=== PATIENT | female | born 1990 | race Caucasian/White ===

== ENCOUNTER 2018-04-09 08:40 | Emergency (ER) | payer MEDICAID, SELFPAY ==
[2018-04-09 08:41] VITALS: BP 170/102; BP 180/110; PULSE 86; PULSE 92; RESP 20; TEMP 36.4; O2SAT 98; BMI 54.9
--- NOTE | 2018-04-09 09:12 | CT_ITS ---
STUDY: CT CHEST WITHOUT CONTRAST REASON FOR EXAM: Female, 27 years old. Right-sided chest pain. No known injury. RADIATION DOSAGE (If Supplied By Facility): CTDIvol = ( 20.15 ) mGy, DLP = ( 629.31 ) mGycm TECHNIQUE: Transaxial imaging was performed without the administration of intravenous contrast material. Multiplanar coronal and sagittal images were reformatted. Individualized dose optimization techniques were used for this CT. COMPARISON: None. FINDINGS: Minimal increased markings seen on the anterior aspect of the right and left lower lobes suggestive of atelectasis and/or scarring. Focal area for groundglass appearance in the anterior aspect of the left upper lobe as well as in the lateral aspect of the right upper lobe and superior segment of the left lower. Calcified granuloma in the right lower lobe. Noncalcified well-defined nodule measuring 6.8 mm is seen in the lateral aspect of the left lower lobe as seen on axial image #67. There is no demonstrated pleural abnormality. Normal heart and pericardium. There are multiple small lymph nodes within the mediastinum, which are normal in size and morphology most compatible with reactive lymph hyperplasia. Normal hilar regions. Normal unenhanced pulmonary arteries. Normal aorta arch and descending thoracic aorta. There are mild degenerative changes of the thoracic spine. There is no demonstrated abnormality of the visualized upper abdomen. CT/Chest without Contrast IMPRESSION: Noncalcified nodule in the left lower lobe. A six-month follow-up is recommended. Nonspecific findings with focal areas of scarring and possible mild infiltrates as described. Electronically Signed: Lewis Sheffield MD at 10:00 EST Tel [phone], Service support ,
[2018-04-09] MEDS: Ketorolac 60 MG/2 ML Vial IM (09:22)
--- NOTE | 2018-04-09 10:12 | ED.VISSUMM ---
- ER Visit Summary Date of Service: 04/09/18 Chief Complaint: Right chest pain History of Present Illness: The patient is a 27 F who states that for the past several weeks she has had a cough. That has improved but on Friday she developed pain underneath her right breast wrapping around to the mid axillary region and into the back. Is worse with movement is worse with touch it is worse with her residual cough. She has a history of asthma and smokes. Travel or surgeries. No prior DVT or PE in the past. She went to [facility] today and they did rib and chest x-rays and was told that they were negative. She was prescribed naproxen. She is upset by this because she is tell them that she was taking naproxen and other [id number]-[id number] medicines and it was not helping. Therefore she came to the emergency department. She has not seen her family doctor made an appointment with them. Physical Examination: Afebrile vital signs are stable Gen: Well-nourished well-developed Head: Normocephalic atraumatic Eyes: Perrl EOMI ENT: TMs clear no rhinorrhea moist mucous membranes Neck: Supple no lymphadenopathy no JVD nontender CVS: Regular rate rhythm no murmurs normal S1-S2 Respiratory: No distress clear to auscultation bilaterally tender to palpation along the lower anterior rib just 2 fingerbreadths below the breast. This rib continues to be tender wrapping posteriorly. There is no rash. Abdomen: Soft nontender nondistended normal bowel sounds no masses Back: Nontender Extremity: Nontender no edema Skin: Normal color no rash Neuro: alert orientated ?3 CN II-XII intact normal strength sensation reflexes gait cerebellar Psych: Normal affect normal mood Test Results: CT chest negative for fracture. Negative for effusion Emergency Department Course and Treatment: Patient received a dose of Toradol. She is PERC negative. Patient will be prescribed Toradol. She is to follow-up with primary care. I advised her on holding a pillow against her chest when she goes to move or cough for support. She was advised that she should expect discomfort. Impression: 1. Right chest wall pain This note was generated with [employer] dictation software. It may contain incorrect words, spelling, and punctuation that were not noted in review of the chart prior to signing ED Disposition - Plan for ED Patient: Disposition: Home or Assisted Living Chief Complaint: Other, Pain/Inj Instructions: ED Strain Chest Wall, ED Chest Pain Costochondritis Prescriptions: Ketorolac [Toradol] 10 mg PO Q8H PRN #15 tab PRN Reason: Pain Referrals: Chantal Ayers PA [Primary Care Provider] - 1 Week
--- NOTE | 2018-04-09 10:17 | ED.DCSUM_ITS ---
- ER Visit Summary Date of Service: 04/09/18 Chief Complaint: Right chest pain History of Present Illness: The patient is a 27 F who states that for the past several weeks she has had a cough. That has improved but on Friday she developed pain underneath her right breast wrapping around to the mid axillary region and into the back. Is worse with movement is worse with touch it is worse with her residual cough. She has a history of asthma and smokes. Travel or surgeries. No prior DVT or PE in the past. She went to [facility] today and they did rib and chest x-rays and was told that they were negative. She was prescribed naproxen. She is upset by this because she is tell them that she was taking naproxen and other phmt-lrh-knawnhe medicines and it was not helping. Therefore she came to the emergency department. She has not seen her family doctor made an appointment with them. Physical Examination: Afebrile vital signs are stable Gen: Well-nourished well-developed Head: Normocephalic atraumatic Eyes: Perrl EOMI ENT: TMs clear no rhinorrhea moist mucous membranes Neck: Supple no lymphadenopathy no JVD nontender CVS: Regular rate rhythm no murmurs normal S1-S2 Respiratory: No distress clear to auscultation bilaterally tender to palpation along the lower anterior rib just 2 fingerbreadths below the breast. This rib continues to be tender wrapping posteriorly. There is no rash. Abdomen: Soft nontender nondistended normal bowel sounds no masses Back: Nontender Extremity: Nontender no edema Skin: Normal color no rash Neuro: alert orientated ?3 CN II-XII intact normal strength sensation reflexes gait cerebellar Psych: Normal affect normal mood Test Results: CT chest negative for fracture. Negative for effusion Emergency Department Course and Treatment: Patient received a dose of Toradol. She is PERC negative. Patient will be prescribed Toradol. She is to follow-up with primary care. I advised her on holding a pillow against her chest when she goes to move or cough for support. She was advised that she should expect discomfort. Impression: 1. Right chest wall pain This note was generated with [employer] dictation software. It may contain incorrect words, spelling, and punctuation that were not noted in review of the chart prior to signing ED Disposition - Plan for ED Patient: Disposition: Home or Assisted Living Chief Complaint: Other, Pain/Inj Instructions: ED Strain Chest Wall, ED Chest Pain Costochondritis Prescriptions: Ketorolac [Toradol] 10 mg PO Q8H PRN #15 tab PRN Reason: Pain Referrals: Chantal Ayers PA [Primary Care Provider] - 1 Week
[2018-04-09 10:25] VITALS: BP 138/74; PULSE 61; RESP 15; O2SAT 98
--- OUTSIDE RECORDS SUMMARY | 2018-06-04 09:17 | XMS RPT_ITS ---
:1990 Author Organization OH[facility] Care Team Providers Name Role Phone FADI VERMA Referring Unavailable Broderick Robert Attending Unavailable Chantal Ayers Primary Care Unavailable PROBLEMS PROBLEMS DATE TYPE CONDITION / CODE ATTENDING STATUS SOURCE 04/09/2018 Active Pleurodynia / NA Active [facility] R07.81(ICD-10) Main [place] Repository PROCEDURES PROCEDURES No Procedure Records FoundRESULTS RESULTS EMERGENCY DEPARTMENT Observed: 04/09/2018 Status: F Source: [place] SUMMARY 5:46 PM [facility] REPOSITORY [facility] Medical Records Department [address] [place] [address] Emergency Department Summary 04/09/18 1012 MR#: [id number] Acct: [id number] Name: TANA QUEEN Rep #: [id number] : 1990 27 From: Broderick Robert DO PCP: Chantal Ayers Status: DEP ER - ER Visit Summary Date of Service: 04/09/18 Chief Complaint: Right chest pain History of Present Illness: The patient is a 27 F who states that for the past several weeks she has had a cough. That has improved but on Friday she developed pain underneath her right breast wrapping around to the mid axillary region and into the back. Is worse with movement is worse with touch it is worse with her residual cough. She has a history of asthma and smokes. Travel or surgeries. No prior DVT or PE in the past. She went to express care today and they did rib and chest x-rays and was told that they were negative. She was prescribed naproxen. She is upset by this because she is tell them that she was taking naproxen and other rrwf-fkj-eoinwhb medicines and it was not helping. Therefore she came to the emergency department. She has not seen her family doctor made an appointment with them. Physical Examination: Afebrile vital signs are stable Gen: Well-nourished well-developed Head: Normocephalic atraumatic Eyes: Perrl EOMI ENT: TMs clear no rhinorrhea moist mucous membranes Neck: Supple no lymphadenopathy no JVD nontender CVS: Regular rate rhythm no murmurs normal S1-S2 Respiratory: No distress clear to auscultation bilaterally tender to palpation along the lower anterior rib just 2 fingerbreadths below the breast. This rib continues to be tender wrapping posteriorly. There is no rash. Abdomen: Soft nontender nondistended normal bowel sounds no masses Back: Nontender Extremity: Nontender no edema Skin: Normal color no rash Neuro: alert orientated 3 CN II-XII intact normal strength sensation reflexes gait cerebellar Psych: Normal affect normal mood Test Results: CT chest negative for fracture. Negative for effusion Emergency Department Course and Treatment: Patient received a dose of Toradol. She is PERC negative. Patient will be prescribed Toradol. She is to follow-up with primary care. I advised her on holding a pillow against her chest when she goes to move or cough for support. She was advised that she should expect discomfort. Impression: 1. Right chest wall pain This note was generated with [employer] dictation software. It may contain incorrect words, spelling, and punctuation that were not noted in review of the chart prior to signing ED Disposition - Plan for ED Patient: Disposition: Home or Assisted Living Chief Complaint: Other, Pain/Inj Instructions: ED Strain Chest Wall, ED Chest Pain Costochondritis Prescriptions: Ketorolac [Toradol] 10 mg PO Q8H PRN #15 tab PRN Reason: Pain Referrals: Chantal Ayers PA [Primary Care Provider] - 1 Week What to do if you have Problems For any increased pain, shortness of breath, bleeding, nausea or vomiting, chest pain, or any unexpected problems, contact your Primary Care Provider. Call [facility] ([phone]) or report to the closest Emergency Room. Call 911 if necessary. 04/09/18 [id number] <Electronically signed by Broderick Robert DO> Date Broderick Robert DO Cosigner Signature (If Indicated): Date CC: Chantal Ayers CHEST WITHOUT Observed: 04/09/2018 Status: F Source: [place] CONTRAST 9:12 AM [facility] REPOSITORY [facility] Imaging Services [address] [place] [address] Chest without Contrast MR#: [id number] Acct: [id number] Name: TANA QUEEN Rep #: [id number] : 1990 F 27 From: Lewis Sheffield MD PCP: Chantal Ayers Status: REG ER Study: Chest without Contrast Date of Exam: 04/09/18 Exam# [id number] Ordering Dr: Broderick Robert DO STUDY: CT CHEST WITHOUT CONTRAST REASON FOR EXAM: Female, 27 years old. Right-sided chest pain. No known injury. RADIATION DOSAGE (If Supplied By Facility): CTDIvol = ( 20.15 ) mGy, DLP = ( 629.31 ) mGycm TECHNIQUE: Transaxial imaging was performed without the administration of intravenous contrast material. Multiplanar coronal and sagittal images were reformatted. Individualized dose optimization techniques were used for this CT. COMPARISON: None. FINDINGS: Minimal increased markings seen on the anterior aspect of the right and left lower lobes suggestive of atelectasis and/or scarring. Focal area for groundglass appearance in the anterior aspect of the left upper lobe as well as in the lateral aspect of the right upper lobe and superior segment of the left lower. Calcified granuloma in the right lower lobe. Noncalcified well-defined nodule measuring 6.8 mm is seen in the lateral aspect of the left lower lobe as seen on axial image #67. There is no demonstrated pleural abnormality. Normal heart and pericardium. There are multiple small lymph nodes within the mediastinum, which are normal in size and morphology most compatible with reactive lymph hyperplasia. Normal hilar regions. Normal unenhanced pulmonary arteries. Normal aorta arch and descending thoracic aorta. There are mild degenerative changes of the thoracic spine. There is no demonstrated abnormality of the visualized upper abdomen. CT/Chest without Contrast IMPRESSION: Noncalcified nodule in the left lower lobe. A six-month follow- up is recommended. Nonspecific findings with focal areas of scarring and possible mild infiltrates as described. Electronically Signed: Lewis Sheffield MD at 10:00 EST Tel [phone], Service support , CC: Chantal Ayers; Broderick Robert DO Talent Management Specialist: Signed XR RIB/CHST 3V AP Observed: 04/09/2018 Status: F Source: [place] RIB/OBL/CHST 8:14 AM [facility] REPOSITORY * * *Final Report* * * DATE OF EXAM: Apr 09 2018 8:14AM WOX [id number] - XR RIB/CHST 3V AP RIB/OBL/CHST R / PROCEDURE REASON: Rib pain on right side * * * * Physician Interpretation * * * * HISTORY: 27-YEAR-OLD FEMALE WITH Rib pain on right side . Cough x 3 weeks. Right sided anterior lower rib pain that wraps around laterally from forceful coughing. TECHNIQUE: XR RIB/CHST 3V AP RIB/OBL/CHST R Laterality: RIGHT Number of different views (projections): 3 COMPARISON: None RESULT: Heart size mediastinum are within normal limits. Lungs are free focal infiltrates or consolidations. No pneumothorax. No pleural effusion. No displaced right rib fracture. IMPRESSION: NO ACUTE BONY ABNORMALITY. Talent Management Specialist: MARY ANN Transcribe Date/Time: Apr 09 2018 12:36P Dictated by : ABHISHEK BUSTAMANTE MD This examination was interpreted and the report reviewed and electronically signed by: ABHISHEK BUSTAMANTE MD on Apr 09 2018 12:38PM EST [id number] PROGRESS Observed: 04/09/2018 Status: COMPLETED Source: [place] 8:04 AM [facility] REPOSITORY HNO ID: [id number] Author: Yuimko Hahn (Rt) Xochilt Garner Service: (none) Author Type: Hunting Guide Type: Progress Notes Filed: 04/09/2018 8:14 AM Note Text: Radiology Service Progress Note PATIENT NAME: Tana Queen DATE OF SERVICE: April 09, 2018 TIME: 8:04 AM PATIENT IDENTITY VERIFICATION COMPLETED USING TWO (2) METHODS: Patient confirmed name verbally and Date of . PATIENT GENDER DATA: Female. status: : No status: NO. PATIENT RELEVANT IMPLANT DATA REVIEWED: Not Applicable RADIOLOGY DEPARTMENT: General X-ray: Exam(s) Completed: Rib X-Ray: Right PERIPHERAL IV DATA: Not applicable SIGNED BY: RT Veronica April 09, 2018 8:04 AM PROGRESS Observed: 04/09/2018 Status: COMPLETED Source: [place] 7:25 AM [facility] REPOSITORY HNO ID: [id number] Author: Fadi Verma Service: (none) Author Type: Physician Type: Progress Notes Filed: 04/09/2018 8:36 AM Note Text: Patient presents with: Cough: x3 weeks Pain: rib Right Side x 5 days HPI: Feeling sick for 3 weeks with URI. 5 days of right rib pain below the right breast and side. Some radiation to the back. Pain is worse than her gallbladder. Pain with inspiration, touching, or cough. Holding a pillow on the chest helps her breath with less discomfort. Positive symptoms: cough, right chest pain, Shortness of breath, Chest tightness, Nasal Congestion, Rhinorrhea, Negative symptoms: Sore throat, Earache, Fever, OTC: Ibuprofen or naproxen, inhaler LMP in January. She had a little pink spotting this month. PAST MEDICAL HISTORY Diagnosis Date - Asthma - Heartburn - Obesity - Tobacco abuse PAST SURGICAL HISTORY Procedure Laterality Date - LAP CHOLECYSTECT/CHOLANGIOGRAPHY 08-17-14 MEDICATIONS: Current Outpatient Prescriptions: albuterol HFA (VENTOLIN HFA) 90 mcg/actuation inhaler Inhale 2 Puffs as instructed every 4 hours as needed. Omeprazole 40 mg capsule Take 1 capsule by mouth once daily. cetirizine (ZYRTEC) 10 mg tablet Take 1 tablet by mouth once daily. guaiFENesin (MUCINEX) 600 mg 12 hr tablet Take 2 tablets by mouth twice daily. (Patient not taking: Reported on 01/22/2017) Loperamide-Simethicone 2-125 mg tab As needed for diarrhea per OTC dosing (Patient not taking: Reported on 01/22/2017) No current facility-administered medications for this visit. ALLERGIES: ALLERGIES Allergen Reactions - Doxycycline Vomiting VITALS: BP 130/80 Pulse 92 Temp 36.4 ?C (97.6 ?F) (Left Tympanic) Resp 20 Wt (!) 148.2 kg (326 lb 12.8 oz) LMP 01/12/2018 SpO2 97% BMI 54.38 kg/m? PHYSICAL EXAM: GEN: alert, pleasant, mildly ill appearing HEENT: PERRL, EOMI, conjunctiva clear Ears: TMs without erythema, bulge, or effusion Sinuses: non-tender frontal sinus, non-tender maxillary sinuses Throat: moist mucous membranes, mild erythema, no exudate Neck: supple, no thyromegaly, no lymphadenopathy HEART: regular rate and rhythm, no murmurs LUNGS: clear to auscultation, no wheezes or crackles, pain with inspiration but no increased WOB. CHEST: Tender right ~10th rib below the breast and in the axillary line with light palpation, discomfort in the same rib in the back. SKIN: No vesicles or patches of erythema on the tender chest area. Hint of ecchymosis may be present. ASSESSMENT/PLAN: 1. Rib pain on right side - ICD9: 786.50, ICD10: R07.81 (primary diagnosis) 2. Cough - ICD9: 786.2, ICD10: R05 3. Mild persistent asthma with acute exacerbation - ICD9: 493.92, ICD10: J45.31 - XR RIBS/CHEST 3V AP RIB/OBLS/CXR RT - negative Suspect rib strain. - NAPROXEN 500 MG TABLET, hold while taking the first 2 days of prednisone. She may use acetaminophen. - BENZONATATE 100 MG CAPSULE - PREDNISONE 10 MG TABLET taper Regular deep inspiration encouraged to avoid pneumonia. F/u in the ER with worsening pain, shortness of breath, or fever. She reports inadequate pain relief with ibuprofen or naproxen. She gets sick from vicodin but has tolerated percocet. She plans to f/u with her PCP or the ER for stronger pain medication. 4. Missed menses - ICD9: 626.4, ICD10: N92.6 - HCG QUAL UR B/O negative Fadi J Verma, MD CNOV Observed: 04/09/2018 Status: COMPLETED Source: [place] 7:15 AM [facility] REPOSITORY [facility] TANA QUEEN ([id number]) 1990 F Date Time Provider Department 04/09/18 7:15 AM FADI VERMA [facility] During your visit today, we recorded the following information about you: Temperature Pulse Respiration Blood pressure 97.6 degrees 92/minute 20/minute 130/80 Weight Last Period 148.2 kg 01/12/18 Fadi Verma MD 04/09/2018 8:36 AM Signed Patient presents with: Cough: x3 weeks Pain: rib Right Side x 5 days HPI: Feeling sick for 3 weeks with URI. 5 days of right rib pain below the right breast and side. Some radiation to the back. Pain is worse than her gallbladder. Pain with inspiration, touching, or cough. Holding a pillow on the chest helps her breath with less discomfort. Positive symptoms: cough, right chest pain, Shortness of breath, Chest tightness, Nasal Congestion, Rhinorrhea, Negative symptoms: Sore throat, Earache, Fever, OTC: Ibuprofen or naproxen, inhaler LMP in January. She had a little pink spotting this month. PAST MEDICAL HISTORY Diagnosis Date - Asthma - Heartburn - Obesity - Tobacco abuse PAST SURGICAL HISTORY Procedure Laterality Date - LAP CHOLECYSTECT/CHOLANGIOGRAPHY 08-17-14 MEDICATIONS: Current Outpatient Prescriptions: albuterol HFA (VENTOLIN HFA) 90 mcg/actuation inhaler Inhale 2 Puffs as instructed every 4 hours as needed. Omeprazole 40 mg capsule Take 1 capsule by mouth once daily. cetirizine (ZYRTEC) 10 mg tablet Take 1 tablet by mouth once daily. guaiFENesin (MUCINEX) 600 mg 12 hr tablet Take 2 tablets by mouth twice daily. (Patient not taking: Reported on 01/22/2017) Loperamide-Simethicone 2-125 mg tab As needed for diarrhea per OTC dosing (Patient not taking: Reported on 01/22/2017) No current facility-administered medications for this visit. ALLERGIES: ALLERGIES Allergen Reactions - Doxycycline Vomiting VITALS: BP 130/80 Pulse 92 Temp 36.4 ?C (97.6 ?F) (Left Tympanic) Resp 20 Wt (!) 148.2 kg (326 lb 12.8 oz) LMP 01/12/2018 SpO2 97% BMI 54.38 kg/m? PHYSICAL EXAM: GEN: alert, pleasant, mildly ill appearing HEENT: PERRL, EOMI, conjunctiva clear Ears: TMs without erythema, bulge, or effusion Sinuses: non-tender frontal sinus, non-tender maxillary sinuses Throat: moist mucous membranes, mild erythema, no exudate Neck: supple, no thyromegaly, no lymphadenopathy HEART: regular rate and rhythm, no murmurs LUNGS: clear to auscultation, no wheezes or crackles, pain with inspiration but no increased WOB. CHEST: Tender right ~10th rib below the breast and in the axillary line with light palpation, discomfort in the same rib in the back. SKIN: No vesicles or patches of erythema on the tender chest area. Hint of ecchymosis may be present. ASSESSMENT/PLAN: 1. Rib pain on right side - ICD9: 786.50, ICD10: R07.81 (primary diagnosis) 2. Cough - ICD9: 786.2, ICD10: R05 3. Mild persistent asthma with acute exacerbation - ICD9: 493.92, ICD10: J45.31 - XR RIBS/CHEST 3V AP RIB/OBLS/CXR RT - negative Suspect rib strain. - NAPROXEN 500 MG TABLET, hold while taking the first 2 days of prednisone. She may use acetaminophen. - BENZONATATE 100 MG CAPSULE - PREDNISONE 10 MG TABLET taper Regular deep inspiration encouraged to avoid pneumonia. F/u in the ER with worsening pain, shortness of breath, or fever. She reports inadequate pain relief with ibuprofen or naproxen. She gets sick from vicodin but has tolerated percocet. She plans to f/u with her PCP or the ER for stronger pain medication. 4. Missed menses - ICD9: 626.4, ICD10: N92.6 - HCG QUAL UR B/O negative Fadi Verma MD Referring Provider: SELF [200] Allergies As of Date: 04/09/2018 Noted Allergy Reaction DOXYCYCLINE 01/08/2013 11 - Vomiting Date Reviewed: 04/09/2018 Reviewed by: Ruthie Banuelos Ma - Fully Assessed Reason for Visit: Cough [28] Cmt: x3 weeks Pain [78] Cmt: rib Right Side x 5 days Primary Visit Diagnosis:Rib pain on right side [R07.81] Other Visit Diagnoses:Cough [R05] Mild persistent asthma with acute exacerbation [J45.31] Missed menses [N92.6] Order(s):[facility] QUAL UR B/O [[id number]] Order #: [id number] XR RIBS/CHEST 3V AP RIB/OBLS/CXR RT [[id number]] Order #: [id number] FUTURE benzonatate (TESSALON PERLE) 100 mg capsuleTake 1 capsule by mouth every 8 hours as needed for Cough for up to 15 days.Disp: 30 capsuleRfl: 0 naproxen (NAPROSYN) 500 mg tabletTake 1 tablet by mouth twice daily as needed for up to 15 days.Disp: 30 tabletRfl: 0 predniSONE (DELTASONE) 10 mg tabletTake by mouth 5 pills on day 1, 4 pills on day 2, 3 pills on day 3, 2 pills on day 4, 1 pill on day 5.Disp: 15 tabletRfl: 0 Prescriptions as of 04/09/2018 Sig: ALBUTEROL SULFATE HFA 90 MCG/* Inhale 2 Puffs as instructed * OMEPRAZOLE 40 MG CAPSULE,TERRANCE* Take 1 capsule by mouth once * CETIRIZINE 10 MG TABLET Take 1 tablet by mouth once d* BENZONATATE 100 MG CAPSULE Take 1 capsule by mouth every* NAPROXEN 500 MG TABLET Take 1 tablet by mouth twice * PREDNISONE 10 MG TABLET Take by mouth 5 pills on day * GUAIFENESIN ER 600 MG TABLET,* Take 2 tablets by mouth twice* Patient not taking: Reported on 01/22/2017 LOPERAMIDE-SIMETHICONE 2 MG-1* As needed for diarrhea per OT* Patient not taking: Reported on 01/22/2017 Problem List As Of Date 04/09/2018 Noted Resolved Pain in Joint, Shoulder Region [M25.519] INVALID FOR* Asthma, mild persistent [J45.30] INVALID FOR* IBS (irritable bowel syndrome) [K58.9] INVALID FOR* Cholecystitis with cholelithiasis [K80.10] INVALID FOR*08/16/2016 Tobacco abuse [Z72.0] INVALID FOR* Morbid obesity with BMI of 50.0-59.9, adult (HC*INVALID FOR* GERD without esophagitis [K21.9] INVALID FOR* Prescriptions ordered this encounter Disp Refills Start End BENZONATATE 100 MG CAPSULE 30 c* 0 04/09/2018 04/24/2018 Route: ORAL Sig: Take 1 capsule by mouth every 8 hours as needed for Cough for up to 15 days. NAPROXEN 500 MG TABLET 30 t* 0 04/09/2018 04/24/2018 Route: ORAL Sig: Take 1 tablet by mouth twice daily as needed for up to 15 days. PREDNISONE 10 MG TABLET 15 t* 0 04/09/2018 04/14/2018 Sig: Take by mouth 5 pills on day 1, 4 pills on day 2, 3 pills on day 3, 2 pills on day 4, 1 pill on day 5. Encounter Status:Closed by FADI VERMA MD on 04/09/18 ALLERGIES ALLERGIES DATE TYPE / CODE NAME / CODE REACTION SEVERITY SOURCE 04/09/2018 Drug hydrocodone/T79374 Nausea Unknown [place] Allergy/416 1554(RXNORM) [facility] 980456([facility] ED CT) Repository 04/09/2018 Drug acetaminophen/F006 Nausea Unknown [place] Allergy/416 [id number](RXNORM) Formerly [facility] [id number]([facility] ED CT) Repository 10/20/2015 Drug dicyclomine/N18344 Vomiting Unknown [place] Allergy/416 4711(RXNORM) [facility]ly [facility] 197258([facility] ED CT) Repository 01/08/2013 DRUG DOXYCYCLINE Vomiting [facility] INGREDI/419 [facility] 452162([facility] ED CT) ENCOUNTERS ENCOUNTERS ADMIT/DISCHARGE ACCOUNT ADMITTING ENCOUNTER LOCATION SOURCE NUMBER CLASS 04/09/2018/04/09/20 [id number] Emergency [place] [facility] ing:ED Repository 04/09/2018/04/09/20 [id number] Ambulatory [address] Repository 04/09/2018/04/10/20 [id number] Ambulatory [address] Repository PAYERS PAYERS ENCOUNTER GUARANTOR PAYER SUBSCRIBER SOURCE 04/09/2018 TANA Sloan Primary TANA [id number] Insurance:JOHN HICKMAN: Community [facility] [place]: [id number] [id number] Repository 28044Oop: 330) Date:2018-04-09P O [phone] () [address]ATTN: [place] [address]FG: 04/09/2018 Secondary NOT GIVENMAVIS Wetzel Insurance:SELF PAY [facility] Number: Effective Repository Date:2018-04-09
== END 2018-04-09 10:28 | disposition home or self-care (01) ==
PROVIDERS: Emergency Provider Emergency Medicine; Family Provider Physician Assistant; PCP Physician Assistant
DX: R07.89 Other chest pain (principal); R05 Cough; E66.9 Obesity, unspecified; J45.909 Unspecified asthma, uncomplicated; K21.9 Gastro-esophageal reflux disease without esophagitis; Z90.49 Acquired absence of other specified parts of digestive tract; Z72.0 Tobacco use
CPT/HCPCS: 71250; 96372; 99284

== ENCOUNTER 2023-06-01 12:47 | Emergency (ER) | payer MEDICAID, SELFPAY ==
[2023-06-01 12:48] VITALS: BP 163/112; PULSE 107; RESP 22; TEMP 36; O2SAT 95; BMI 55.2
--- OUTSIDE RECORDS SUMMARY | 2023-06-01 13:15 | XMS RPT_ITS | CCD ---
Author Name Unknown Address [address] [place] [address] Organization [facility] Care Team Providers Care Drafter Geological Name Role Phone Chantal Ayers PA-C Primary Care Provider Xochitl Hunt Primary Care Provider [phone] Xochitl AYERS Primary Care Unavailable ROSALINDA RIBEIRO Attending Unavailable Chantal Ayers PA-C Primary Care Provider Chantal Ayers PA-C Primary Care Provider Chantal AYERS Primary Care Unavailable Chantal AYERS Primary Care Unavailable Chantal AYERS Primary Care Unavailable Chantal AYERS Primary Care Unavailable Chantal AYERS Primary Care Unavailable Chantal AYERS Primary Care Unavailable Chantal AYERS Primary Care Unavailable Chantal AYERS Primary Care Unavailable Chantal AYERS Primary Care Unavailable Chantal AYERS Primary Care Unavailable Allergies Allergy Classification Reported Allergen(s) Allergy Type Date of Onset Reaction(s) Facility (17 sources) Doxycycline; Translations: [DOXYCYCLINE] Drug Allergy 01-08-2013 Vomiting [facility] Work Phone: (10 sources) Acetaminophen; Translations: [ACETAMINOPHEN] Drug Allergy 04-09-2018 Other: See Comments [facility] (10 sources) HYDROcodone; Translations: [HYDROCODONE] Drug Allergy 04-09-2018 Other: See Comments [facility] Medications Current Medications Medication Drug Class(es) Dates Sig (Normalized) Sig (Original) acetaminophen 325 mg / HYDROcodone bitartrate 5 mg oral tablet (1 source) Opioid Agonist Start: 01-18-2022 End: 01-22-2022 take 1 tablet by mouth every six hours as needed for pain hydroCODone-acetamino phen 5-325 MG tablet Indications: Ureterolithiasis Take 1 tablet by mouth every 6 hours as needed for Moderate Pain or Severe Pain for up to 4 days. 16 tablet 0 01/18/2022 01/22/2022 Active amoxicillin 875 mg / clavulanate 125 mg oral tablet (6 sources) Penicillin-class Antibacterial Start: 03-31-2023 End: 04-07-2023 take 1 tablet by mouth twice daily amoxicillin-clavulana te potassium (AUGMENTIN) 875-125 mg per tablet Indications: Bacterial sinusitis Take 1 tablet by mouth two times a day for 7 days. 14 tablet 0 03/31/2023 04/07/2023 Active Completed/Discontinued Medications Medication Drug Class(es) Dates Sig (Normalized) Sig (Original) [id number] 200 actuat albuterol 0.09 mg/actuat metered dose inhaler (20 sources) beta2-Adrenergic Agonist Start: 09-26-2022 End: 01-30-2023 take 2 puff(s) by inhalation every four hours as needed albuterol HFA (VENTOLIN HFA) 90 mcg/actuation inhaler Indications: Mild persistent asthma without complication Inhale 2 Puffs as instructed every 4 hours as needed. 18 g 5 01/30/2023 Active Problems Active Problems Problem Classification Problem Date Documented Da te Episodic/Chronic Abdominal pain (2 sources) Epigastric pain; Translations: [Epigastric pain] Episodic Asthma (19 sources) Mild persistent asthma; Translations: [Mild persistent asthma, uncomplicated] Onset: 3 07-10-2012 Chronic Calculus of urinary tract (2 sources) Ureteric stone; Translations: [Calculus of ureter] Episodic Esophageal disorders (15 sources) Gastroesophageal reflux disease without esophagitis; Translations: [Gastro-esophageal reflux disease without esophagitis] Onset: 7 08-16-2016 Chronic Other circulatory disease (1 source) Elevated blood-pressure reading without diagnosis of hypertension; Translations: [Elevated blood-pressure reading, without diagnosis of hypertension] 03-31-2023 Episodic Other ear and sense organ disorders (1 source) Bilateral hearing loss; Translations: [Impacted cerumen, bilateral] Episodic Other ear and sense organ disorders (1 source) Impacted cerumen of bilateral ears; Translations: [Impacted cerumen, bilateral] Episodic Other ear and sense organ disorders (1 source) Acute otitis externa of right ear; Translations: [Unspecified acute noninfective otitis externa, right ear] Episodic Other ear and sense organ disorders (1 source) Impacted cerumen in left ear; Translations: [Impacted cerumen, left ear] Episodic Other ear and sense organ disorders (1 source) Ear problem; Translations: [Unspecified disorder of right ear] Episodic Other ear and sense organ disorders (1 source) Otalgia, left ear; Translations: [Otalgia, unspecified] 01-30-2023 Episodic Other gastrointestinal disorders (15 sources) Irritable bowel syndrome; Translations: [Irritable bowel syndrome without diarrhea] Onset: 5 07-19-2014 Chronic Other gastrointestinal disorders (2 sources) Heartburn; Translations: [Heartburn] Episodic Other nutritional; endocrine; and metabolic disorders (15 sources) Body mass index 40+ - severely obese; Translations: [Morbid (severe) obesity due to excess calories] Onset: 7 08-16-2016 Chronic Other nutritional; endocrine; and metabolic disorders (1 source) Morbid obesity; Translations: [Obesity, unspecified] Chronic Other upper respiratory disease (2 sources) Seasonal allergy; Translations: [Other seasonal allergic rhinitis] Chronic Other upper respiratory disease (1 source) Seasonal allergic rhinitis; Translations: [Other allergic rhinitis] Chronic Other upper respiratory infections (1 source) Bacterial sinusitis; Translations: [Chronic sinusitis, unspecified] 03-31-2023 Chronic Other upper respiratory infections (2 sources) Sore throat symptom; Translations: [Acute pharyngitis, unspecified] 01-02-2023 Episodic Otitis media and related conditions (6 sources) Acute right otitis media; Translations: [Otitis media, unspecified, right ear] Episodic Past or Other Problems Problem Classification Problem Date Documented Da te Episodic/Chronic Other non-traumatic joint disorders (15 sources) Shoulder joint pain; Translations: [Pain in unspecified shoulder] Onset: 03-16-2009 03-16-2009 Episodic Residual codes; unclassified (15 sources) Tobacco user; Translations: [Tobacco use] Onset: 08-10-2014 08-10-2014 Episodic Results Test Name Value Interpretation Reference Range Facil ity Vital Signs Date Time Vital Sign Value Performing Clinician Facility 03-31-2023 13:26-0500 Body temperature 99 [degF] Yas Praisler-Wood ENROBING MACHINE CORDER.[employer]IND [employer]ER Work Phone: [facility] 03-31-2023 13:26-0500 Body weight 163.02 kg Yas Praisler-Wood ENROBING MACHINE CORDER.[employer] Work Phone: [facility] 03-31-2023 13:26-0500 Diastolic blood pressure 103 mm[Hg] Yas Praisler-Wood ENROBING MACHINE CORDER.BLIND H[employer]ER Work Phone: [facility] 03-31-2023 13:26-0500 Heart rate 96 /min Yas Praisler-Wood ENROBING MACHINE CORDER.[employer]ER Work Phone: [facility] 03-31-2023 13:26-0500 Respiratory rate 20 /min Yas Praisler-Wood ENROBING MACHINE CORDER.[employer]ER Work Phone: [facility] 03-31-2023 13:26-0500 SaO2% (BldA) [Mass fraction] 98 % Yas Praisler-Wood ENROBING MACHINE CORDER.[employer]ER Work Phone: [facility] 03-31-2023 13:26-0500 Systolic blood pressure 169 mm[Hg] Yas Praisler-Wood ENROBING MACHINE CORDER.BLIND HANGER Work Phone: [facility] 01-30-2023 11:53-0400 Body temperature 99 [degF] Fadi Verma MD Work Phone: [facility] 01-30-2023 11:53-0400 Body weight 157.58 kg Fadi Verma MD Work Phone: [facility] 01-30-2023 11:53-0400 Diastolic blood pressure 76 mm[Hg] Fadi Verma MD Work Phone: [facility] 01-30-2023 11:53-0400 Heart rate 100 /min Fadi Verma MD Work Phone: [facility] 01-30-2023 11:53-0400 Respiratory rate 20 /min Fadi Verma MD Work Phone: [facility] 01-30-2023 11:53-0400 SaO2% (BldA) [Mass fraction] 96 % Fadi Verma MD Work Phone: [facility] 01-30-2023 11:53-0400 Systolic blood pressure 128 mm[Hg] Fadi Verma MD Work Phone: [facility] 01-20-2023 19:29-0400 Body temperature 100.51 [degF] Tiago Sam ENROBING MACHINE CORDER.[employer]ER Work Phone: [facility] 01-20-2023 19:29-0400 Body weight 155.95 kg Tiago Sam ENROBING MACHINE CORDER.[employer] Work Phone: [facility] 01-20-2023 19:29-0400 Diastolic blood pressure 83 mm[Hg] Tiago Sam ENROBING MACHINE CORDER.[employer]ER Work Phone: [facility] 01-20-2023 19:29-0400 Heart rate 115 /min Tiago Sam ENROBING MACHINE CORDER.[employer] Work Phone: [facility] 01-20-2023 19:29-0400 Respiratory rate 26 /min Tiago Sam ENROBING MACHINE CORDER.[employer]ER Work Phone: [facility] 01-20-2023 19:29-0400 SaO2% (BldA) [Mass fraction] 91 % Tiago Sam ENROBING MACHINE CORDER.[employer]ER Work Phone: [facility] 01-20-2023 19:29-0400 Systolic blood pressure 165 mm[Hg] Tiago Sam ENROBING MACHINE CORDER.[employer]ER Work Phone: [facility] 01-02-2023 11:59-0400 Body temperature 98.8 [degF] Yas Pramadelinler-Wood ENROBING MACHINE CORDER.[employer]ER Work Phone: [facility] 01-02-2023 11:59-0400 Body weight 155.13 kg Yasreema Collazo-Andres ENROBING MACHINE CORDER.[employer]ER Work Phone: [facility] 01-02-2023 11:59-0400 Diastolic blood pressure 86 mm[Hg] Yas Praisler-Wood ENROBING MACHINE CORDER.[employer]ER Work Phone: [facility] 01-02-2023 11:59-0400 Heart rate 91 /min Yas Praisler-Wood ENROBING MACHINE CORDER.[employer]ER Work Phone: [facility] 01-02-2023 11:59-0400 Respiratory rate 20 /min Yas Praisler-Wood ENROBING MACHINE CORDER.[employer]ER Work Phone: [facility] 01-02-2023 11:59-0400 SaO2% (BldA) [Mass fraction] 97 % Yas Praisler-Wood ENROBING MACHINE CORDER.[employer]ER Work Phone: [facility] 01-02-2023 11:59-0400 Systolic blood pressure 132 mm[Hg] Yas Praisler-Wood ENROBING MACHINE CORDER.[employer]ER Work Phone: [facility] 11-13-2022 10:41-0400 Body temperature 97.81 [degF] Dia Latanya ENROBING MACHINE CORDER.[employer]ER Work Phone: [facility] 11-13-2022 10:41-0400 Body weight 152.86 kg Dia Latanya ENROBING MACHINE CORDER.[employer]ER Work Phone: [facility] 11-13-2022 10:41-0400 Diastolic blood pressure 80 mm[Hg] Dia Latanya ENROBING MACHINE CORDER.BL[employer]ER Work Phone: [facility] 11-13-2022 10:41-0400 Heart rate 92 /min Dia Latanya ENROBING MACHINE CORDER.[employer]ER Work Phone: [facility] 11-13-2022 10:41-0400 Respiratory rate 16 /min Dia Latanya ENROBING MACHINE CORDER.[employer]ER Work Phone: [facility] 11-13-2022 10:41-0400 SaO2% (BldA) [Mass fraction] 97 % Dia Latanya ENROBING MACHINE CORDER.[employer]ER Work Phone: [facility] 11-13-2022 10:41-0400 Systolic blood pressure 122 mm[Hg] Dia Latanya ENROBING MACHINE CORDER.BLIND HANGER Work Phone: [facility] 10-16-2022 09:20-0400 Body temperature 97.7 [degF] Krislyn Aberegg PA Work Phone: [facility] 10-16-2022 09:20-0400 Body weight 152.95 kg Krislyn Aberegg PA Work Phone: [facility] 10-16-2022 09:20-0400 Diastolic blood pressure 78 mm[Hg] Krislyn Aberegg PA Work Phone: [facility] 10-16-2022 09:20-0400 Heart rate 83 /min Krislyn Aberegg PA Work Phone: [facility] 10-16-2022 09:20-0400 Respiratory rate 18 /min Krislyn Aberegg PA Work Phone: [facility] 10-16-2022 09:20-0400 SaO2% (BldA) [Mass fraction] 96 % Krislyn Aberegg PA Work Phone: [facility] 10-16-2022 09:20-0400 Systolic blood pressure 122 mm[Hg] Krislyn Aberegg PA Work Phone: [facility] 09-20-2022 18:27-0400 Body temperature 98.8 [degF] Chester Asad ENROBING MACHINE CORDER.BL[employer] HANGER Work Phone: [facility] 09-20-2022 18:27-0400 Body weight 148.96 kg Chester Kamara ENROBING MACHINE CORDER.BL[employer] HANGER Work Phone: [facility] 09-20-2022 18:27-0400 Diastolic blood pressure 82 mm[Hg] Chester Asad ENROBING MACHINE CORDER.BL[employer] H[employer]ER Work Phone: [facility] 09-20-2022 18:27-0400 Heart rate 93 /min Chester Asad ENROBING MACHINE CORDER.BL[employer]ER Work Phone: [facility] 09-20-2022 18:27-0400 Respiratory rate 18 /min Chester Asad ENROBING MACHINE CORDER.BLIND HANGER Work Phone: [facility] 09-20-2022 18:27-0400 SaO2% (BldA) [Mass fraction] 96 % Chester Asad ENROBING MACHINE CORDER.BL[employer] H[employer]ER Work Phone: [facility] 09-20-2022 18:27-0400 Systolic blood pressure 136 mm[Hg] Chester Asad ENROBING MACHINE CORDER.BLIND HANGER Work Phone: [facility] 07-10-2022 13:40-0500 Body temperature 98.91 [degF] Chester Kamara ENROBING MACHINE CORDER.BL[employer] HANGER Work Phone: [facility] 07-10-2022 13:40-0500 Body weight 149.69 kg Chester Kamara ENROBING MACHINE CORDER.BL[employer] H[employer]ER Work Phone: [facility] 07-10-2022 13:40-0500 Diastolic blood pressure 80 mm[Hg] Chester Asad ENROBING MACHINE CORDER.BLIND HANGER Work Phone: [facility] 07-10-2022 13:40-0500 Heart rate 88 /min Chester Asad ENROBING MACHINE CORDER.BLIND H[employer]ER Work Phone: [facility] 07-10-2022 13:40-0500 Respiratory rate 16 /min Chester Asad ENROBING MACHINE CORDER.BLIND HANGER Work Phone: [facility] 07-10-2022 13:40-0500 SaO2% (BldA) [Mass fraction] 97 % Chester Kamara ENROBING MACHINE CORDER.BLIND HANGER Work Phone: [facility] 07-10-2022 13:40-0500 Systolic blood pressure 128 mm[Hg] Chester Asad ENROBING MACHINE CORDER.BLIND HANGER Work Phone: [facility] 02-08-2022 08:53-0400 Body weight 154.68 kg NA Ayers PA-C Work Phone: [facility] 02-08-2022 08:53-0400 Diastolic blood pressure 80 mm[Hg] NA Ayers PA-C Work Phone: [facility] 02-08-2022 08:53-0400 Heart rate 96 /min NA Ayers PA-C Work Phone: [facility] 02-08-2022 08:53-0400 Respiratory rate 18 /min NA Ayers PA-C Work Phone: [facility] 02-08-2022 08:53-0400 SaO2% (BldA) [Mass fraction] 97 % NA Ayers PA-C Work Phone: [facility] 02-08-2022 08:53-0400 Systolic blood pressure 142 mm[Hg] NA Ayers PA-C Work Phone: [facility] 01-18-2022 17:00-0400 Diastolic blood pressure 72 mm[Hg] Rosalinda Contrerasn DO Work Phone: [facility] 01-18-2022 17:00-0400 Heart rate 87 /min Rosalinda Quintin DO Work Phone: [facility] 01-18-2022 17:00-0400 Respiratory rate 18 /min Rosalinda Quintin DO Work Phone: [facility] 01-18-2022 17:00-0400 SaO2% (BldA) [Mass fraction] 96 % Rosalinda Contrerasn DO Work Phone: [facility] 01-18-2022 17:00-0400 Systolic blood pressure 167 mm[Hg] Rosalinda Quintin Work Phone: [facility] 01-18-2022 13:50-0400 Body height 167.6 cm Rosalinda Quintin Work Phone: [facility] 01-18-2022 13:50-0400 Body mass index (BMI) [Ratio] 53.26 kg/m2 Rosalindakalyan Contrerasn DO Work Phone: [facility] 01-18-2022 13:50-0400 Body weight 149.69 kg Rosalinda Quinitn Work Phone: [facility] 01-18-2022 13:49-0400 Body temperature 98.29 [degF] Rosalinda Ribeiro Work Phone: [facility] 10-22-2021 07:43-0400 Body temperature 97.9 [degF] Tiago Sam APRN.CNP Work Phone: [facility] 10-22-2021 07:43-0400 Body weight 161.03 kg Tiago Sam ENROBING MACHINE CORDER.BL[employer]ER Work Phone: [facility] 10-22-2021 07:43-0400 Diastolic blood pressure 82 mm[Hg] Tiago Sam ENROBING MACHINE CORDER.BLIND HANGER Work Phone: [facility] 10-22-2021 07:43-0400 Heart rate 104 /min Tiago Sam ENROBING MACHINE CORDER.BLIND HANGER Work Phone: [facility] 10-22-2021 07:43-0400 Respiratory rate 18 /min Tiago Sam ENROBING MACHINE CORDER.BLIND HANGER Work Phone: [facility] 10-22-2021 07:43-0400 SaO2% (BldA) [Mass fraction] 98 % Tiago Sam ENROBING MACHINE CORDER.BL[employer] HANGER Work Phone: [facility] 10-22-2021 07:43-0400 Systolic blood pressure 124 mm[Hg] Tiago Sam ENROBING MACHINE CORDER.BLIND HANGER Work Phone: [facility] Encounters Encounter Date Encounter Type Care Provider Facility Start: 05-22-2023 End: 05-22-2023 ambulatory [facility] Facility:[facility] Start: 03-31-2023 End: 03-31-2023 ambulatory [facility] Facility:[facility] Start: 03-31-2023 End: 03-31-2023 Patient encounter procedure Yas Alas ENROBING MACHINE CORDER.BLIND HANGER Work Phone: [facility] Procedures Date Procedure Procedure Detail Performing Clinician Start: 01-02-2023 STREP A MOLECULAR (POC) [facility] Provider Start: 01-18-2022 Ct abdomen & pelvis w/o contrast material Rosalinda Ribeiro DO Work Phone: Start: 01-18-2022 End: 01-18-2022 Basic metabolic panel calcium total Rosalinda Ribeiro DO Work Phone: Start: 01-18-2022 Complete blood count with white cell differential, automated Rosalinda Ribeiro DO Work Phone: Start: 01-18-2022 URINALYSIS REFLEX TO CULTURE Rosalinda Ribeiro DO Work Phone: Start: 12-31-2018 Adult depression screening assessment Tiago Sam APRN.[facility] Work Phone: Plan of Treatment Date Care Activity Detail Author Start: 02-08-2023 ANNUAL PCP TEAM RIVET PASSER VALERIE DISEASE VISIT ANNUAL PCP TEAM CHRONIC DISEASE VISIT [facility] Start: 02-08-2023 COVID-19 VACCINE (#1) COVID-19 VACCI NE (#1) [facility] Immunizations Immunization Date Immunization Notes Care Provider Fa sommer 10-27-2008 tetanus toxoid, redu rosemary diphtheria toxoid, and acellular pertussis vaccine, adsorbed Tiago Sam ENROBING MACHINE CORDER.[facility] Work Phone: [facility] Work Phone: 11-15-1997 diphtheria, tetanus toxoids and acellular pertussis vaccine Tiago Sam ENROBING MACHINE CORDER.[facility] Work Phone: [facility] Work Phone: 11-15-1997 measles, mumps and rubella virus vaccine Tiago Sam ENROBING MACHINE CORDER.[facility] Work Phone: [facility] Work Phone: 11-15-1997 trivalent poliovirus vaccine, live, oral Tiago Sam ENROBING MACHINE CORDER.[facility] Work Phone: [facility] Work Phone: 02-01-1994 diphtheria, tetanus toxoids and acellular pertussis vaccine Tiago Sam ENROBING MACHINE CORDER.[facility] Work Phone: [facility] Work Phone: 02-01-1994 haemophilus influenz ae type b vaccine, HbOC conjugate Tiago Sam ENROBING MACHINE CORDER.[facility] Work Phone: [facility] Work Phone: 02-01-1994 measles, mumps and rubella virus vaccine Tiago Sam ENROBING MACHINE CORDER.[facility] Work Phone: [facility] Work Phone: 02-01-1994 trivalent poliovirus vaccine, live, oral Tiago Sam ENROBING MACHINE CORDER.[facility] Work Phone: [facility] Work Phone: 05-31-1993 diphtheria, tetanus toxoids and pertussis vaccine Tiago Sam ENROBING MACHINE CORDER.[employer] Work Phone: [facility] Work Phone: 05-31-1993 haemophilus influenz ae type b vaccine, HbOC conjugate Tiago Sam ENROBING MACHINE CORDER.[facility] Work Phone: [facility] Work Phone: 05-31-1993 hepatitis B vaccine, pediatric or pediatric/adolescent dosage Tiago Sam ENROBING MACHINE CORDER.[facility] Work Phone: [facility] Work Phone: 03-01-1993 diphtheria, tetanus toxoids and pertussis vaccine Tiago Sam ENROBING MACHINE CORDER.[facility] Work Phone: [facility] Work Phone: 03-01-1993 haemophilus influenz ae type b vaccine, HbOC conjugate Tiago Sam ENROBING MACHINE CORDER.[facility] Work Phone: [facility] Work Phone: 03-01-1993 trivalent poliovirus vaccine, live, oral Tiago Sam ENROBING MACHINE CORDER.[facility] Work Phone: [facility] Work Phone: 1992 diphtheria, tetanus toxoids and pertussis vaccine Tiago Sam ENROBING MACHINE CORDER.[employer] Work Phone: [facility] Work Phone: 1992 haemophilus influenz ae type b vaccine, HbOC conjugate Tiago Sam ENROBING MACHINE CORDER.[facility] Work Phone: [facility] Work Phone: 1992 trivalent poliovirus vaccine, live, oral Tiago Sam ENROBING MACHINE CORDER.[facility] Work Phone: [facility] Work Phone: 1992 hepatitis B vaccine, pediatric or pediatric/adolescent dosage Tiago Sam ENROBING MACHINE CORDER.[employer] Work Phone: [facility] Work Phone: 1992 hepatitis B vaccine, pediatric or pediatric/adolescent dosage Tiago Sam ENROBING MACHINE CORDER.[employer] Work Phone: [facility] Work Phone: Payers Date Payer Category Payer Medicaid [id number] 2022 Unknown [id number] 2017 Medicaid [employer] [facility] [id number] 2017-Present [phone] [address] [place] [address] Medicaid [id number] 2017 Medicaid [id number] 2015 Unknown [id number] 1992 Unknown [id number] Social History Date Type Detail Facility Start: 02-15-2016 End: 02-08-2022 Tobacco smoking status RIIS Smokes tobacco daily [facility] Work Phone: History of tobacco use Cigarette Smoker [facility] Work Phone: Start: 10-22-2021 End: 03-31-2023 Alcohol intake Current drinker of alcohol (finding) [facility] Start: 02-15-2016 End: 02-08-2022 Tobacco Comment cut to half a pack. [facility] Start: 1990 Sex Assigned At Not on file [facility] Start: 10-12-2021 End: 02-04-2022 Exposure to SARS-CoV-2 (event) Not sure [facility] Work Phone: Start: 02-15-2016 End: 05-24-2022 Cigarettes smoked current (pack per day) - Reported 0.8 [facility] Start: 02-15-2016 End: 02-08-2022 Tobacco use and exposure Smokeless tobacco non-user [facility] Work Phone: Start: 01-18-2022 Alcohol intake Lifetime non-d jorge a (finding) [facility] Start: 05-24-2022 End: 01-02-2023 Tobacco use panel [facility] Adult Depression Screening Assessment 0 [facility] Clinical Notes 07-19-2014 to 05-22-2023 Yas Alas APRN.[employer] - 03/31/2023 1:36 PM ESTPatient InstructionsFadi Verma MD - 01/30/2023 12:06 PM EDTTelephone Encounter - Lindsey Devine - 01/30/2023 11:55 AM EDTAttachments Note Date & Type Note Facility 05-22-2023 Note HNO ID: [id number] Author: YAS ALAS APRN.[employer]ER Service: ? Author Type: Nurse Practitioner Type: Progress Notes Filed: 05/22/2023 13:58 Note Text: Subjective Ear Problem Associated symptoms include coughing and hearing loss (right ear). Tana Queen is a 32 year old female who presents with ear pain, bilateral. Has had decreased hearing in right ear. Has had recent URI symptoms of cough, congestion. She has not had a fever. She took ibuprofen for pain at home. Review of Systems Constitutional: Negative for chills and fever. HENT: Positive for congestion, ear pain and hearing loss (right ear). Respiratory: Positive for cough. Cardiovascular: Negative. Musculoskeletal: Negative for myalgias. BP 148/90 Pulse 105 Temp 36.7 ?C (98.1 ?F) Resp 21 Wt (!) 169.6 kg (373 lb 12.8 oz) LMP 01/13/2023 (Approximate) SpO2 95% BMI 62.20 kg/m? PAST MEDICAL HISTORY Diagnosis Date Asthma Heartburn Obesity Tobacco abuse PAST SURGICAL HISTORY Procedure Laterality Date LAPS SURG CHOLECYSTECTOMY W/CHOLANGIOGRAPHY 08-17-14 ALLERGIES Acetaminophen, Doxycycline, and Hydrocodone MEDICATIONS fluticasone (FLONASE) 50 mcg/actuation nasal spray Use 2 Sprays in each nostril once daily. Rinse mouth after use. omeprazole (PRILOSEC) 40 mg capsule Take 1 capsule by mouth once daily. loratadine (CLARITIN) 10 mg tablet Take 1 tablet by mouth once daily. albuterol HFA (VENTOLIN HFA) 90 mcg/actuation inhaler Inhale 2 Puffs as instructed every 4 hours as needed. albuterol (PROVENTIL) 2.5 mg /3 mL (0.083 %) nebulizer solution Use 3 mL via nebulizer every 4 hours as needed for wheezing/shortness of breath. Use over 5-15minutes. albuterol (PROVENTIL) 2.5 mg /3 mL (0.083 %) nebulizer solution Use 3 mL via nebulizer every 4 hours as needed for wheezing/shortness of breath. Use over 5-15minutes. montelukast (SINGULAIR) 10 mg tablet Take 1 tablet by mouth daily at bedtime. amoxicillin (AMOXIL) 875 mg tablet Take 1 tablet by mouth two times a day for 7 days. Dextromethorphan-guaiFENesin (CORICIDIN HBP CHEST SRINI-COUGH) 10-200 mg cap Take 1 capsule by mouth three times a day. (Patient not taking: Reported on 05/22/2023) predniSONE (DELTASONE) 10 mg tablet Take 4 tabs daily for 3 days, then 2 tabs daily for 3 days, then 1 tab daily for 3 days with food. (Patient not taking: Reported on 03/31/2023) nagzfzfu-xnphianxx-raerkkgysdqev e (CORTISPORIN) otic solution Use 3 Drops in the right ear four times daily. (Patient not taking: Reported on 05/22/2023) triamcinolone acetonide (KENALOG) 0.1 % cream Apply 1 application to affected area three times daily. Apply sparingly to area for rash/itching. (Patient not taking: Reported on 05/22/2023) FAMILY HISTORY Problem Relation Age of Onset Heart Maternal Grandfather Enlarged heart, 1992 Cancer Maternal Grandfather Lung cancer, from Diabetes Maternal Grandfather Hypertension Mother Thyroid Mother Heart Paternal Grandfather other (Other) Father Raynaud's other (BPH) Father Ovarian cancer Maternal Aunt other (sudden ) Maternal Uncle Psychiatry Paternal Aunt bipolar, diability Psychiatry Paternal Aunt suicide Social History Tobacco Use Smoking status: Every Day Packs/day: 0.80 Years: 4.00 Additional pack years: 0.00 Total pack years: 3.20 Types: Cigarettes Smokeless tobacco: Never Tobacco comments: cut to half a pack. Substance Use Topics Alcohol use: Yes Comment: 1 drink per week Drug use: No Objective Physical Exam Vitals and nursing note reviewed. Constitutional: General: She is not in acute distress. Appearance: Normal appearance. She is not ill-appearing. HENT: Right Ear: Ear canal and external ear normal. A middle ear effusion is present. Left Ear: Ear canal and external ear normal. A middle ear effusion is present. Tympanic membrane is injected. Nose: Nose normal. Mouth/Throat: Mouth: Mucous membranes are moist. Pharynx: Uvula midline. No oropharyngeal exudate or posterior oropharyngeal erythema. Cardiovascular: Rate and Rhythm: Normal rate and regular rhythm. Heart sounds: Normal heart sounds. Pulmonary: Effort: Pulmonary effort is normal. No respiratory distress. Breath sounds: Normal breath sounds. No wheezing or rales. Musculoskeletal: Cervical back: Neck supple. Lymphadenopathy: Cervical: No cervical adenopathy. Skin: General: Skin is warm and dry. Findings: No erythema or rash. Neurological: Mental Status: She is alert. ASSESSMENT/PLAN: 1. Other acute nonsuppurative otitis media of left ear, recurrence not specified - ICD9: 381.00, ICD10: H65.192 (primary diagnosis) - Will begin treatment with as per antibiotic as written, see orders - Supportive care with plenty of fluids, rest, and analgesia prn. - AMOXICILLIN 875 MG TABLET 2. Acute effusion of right ear - ICD9: 381.00, ICD10: H65.191 - FLUTICASONE PROPIO (more content not included)... [facility] 03-31-2023 Note HNO ID: [id number] Author: Yas Alas APRN.BLIND HANGER Service: ? Author Type: Nurse Practitioner Type: Progress Notes Filed: 03/31/2023 1:43 PM Note Text: Subjective Sinus Problem Associated symptoms include congestion, coughing and headaches. Pertinent negatives include no chills or sore throat. Tana Queen is a 32 year old female who presents with one week of nasal congestion and drainage, cough. In the past few days she has had increasing sinus pressure and states I feel like someone punched me in the nose . She has not had a fever. She has taken dayquil at home. Review of Systems Constitutional: Negative for chills. HENT: Positive for congestion, ear pain (pressure) and sinus pain. Negative for sore throat. Respiratory: Positive for cough. Negative for shortness of breath. Cardiovascular: Negative. Neurological: Positive for dizziness and headaches. BP 169/103 Pulse 96 Temp 37.2 ?C (99 ?F) Resp 20 Wt (!) 163 kg (359 lb 6.4 oz) LMP 01/13/2023 (Approximate) SpO2 98% BMI 59.81 kg/m? PAST MEDICAL HISTORY Diagnosis Date Asthma Heartburn Obesity Tobacco abuse PAST SURGICAL HISTORY Procedure Laterality Date LAPS SURG CHOLECYSTECTOMY W/CHOLANGIOGRAPHY 08-17-14 ALLERGIES Acetaminophen, Doxycycline, and Hydrocodone MEDICATIONS amoxicillin-clavulanate potassium (AUGMENTIN) 875-125 mg per tablet Take 1 tablet by mouth two times a day for 7 days. albuterol HFA (VENTOLIN HFA) 90 mcg/actuation inhaler Inhale 2 Puffs as instructed every 4 hours as needed. predniSONE (DELTASONE) 10 mg tablet Take 4 tabs daily for 3 days, then 2 tabs daily for 3 days, then 1 tab daily for 3 days with food. (Patient not taking: Reported on 03/31/2023) albuterol (PROVENTIL) 2.5 mg /3 mL (0.083 %) nebulizer solution Use 3 mL via nebulizer every 4 hours as needed for wheezing/shortness of breath. Use over 5-15minutes. mpiuaygi-mgxgxxsbu-obqitcshzmuhq e (CORTISPORIN) otic solution Use 3 Drops in the right ear four times daily. omeprazole (PRILOSEC) 40 mg capsule Take 1 capsule by mouth once daily. loratadine (CLARITIN) 10 mg tablet Take 1 tablet by mouth once daily. fluticasone (FLONASE) 50 mcg/actuation nasal spray Use 2 Sprays in each nostril once daily. Rinse mouth after use. albuterol (PROVENTIL) 2.5 mg /3 mL (0.083 %) nebulizer solution Use 3 mL via nebulizer every 4 hours as needed for wheezing/shortness of breath. Use over 5-15minutes. montelukast (SINGULAIR) 10 mg tablet Take 1 tablet by mouth daily at bedtime. fluticasone (FLONASE) 50 mcg/actuation nasal spray Use 1 Warren in each nostril once daily. triamcinolone acetonide (KENALOG) 0.1 % cream Apply 1 application to affected area three times daily. Apply sparingly to area for rash/itching. FAMILY HISTORY Problem Relation Age of Onset Heart Maternal Grandfather Enlarged heart, 1993 Cancer Maternal Grandfather Lung cancer, from Diabetes Maternal Grandfather Hypertension Mother Thyroid Mother Heart Paternal Grandfather other (Other) Father Raynaud's other (BPH) Father Ovarian cancer Maternal Aunt other (sudden ) Maternal Uncle Psychiatry Paternal Aunt bipolar, diability Psychiatry Paternal Aunt suicide Social History Tobacco Use Smoking status: Every Day Packs/day: 0.80 Years: 4.00 Additional pack years: 0.00 Total pack years: 3.20 Types: Cigarettes Smokeless tobacco: Never Tobacco comments: cut to half a pack. Substance Use Topics Alcohol use: Yes Comment: 1 drink per week Drug use: No Objective Physical Exam Vitals and nursing note reviewed. Constitutional: General: She is not in acute distress. Appearance: Normal appearance. She is obese. She is not ill-appearing. HENT: Right Ear: Tympanic membrane, ear canal and external ear normal. Left Ear: Tympanic membrane, ear canal and external ear normal. Nose: Nasal tenderness, mucosal edema, congestion and rhinorrhea present. Mouth/Throat: Pharynx: Uvula midline. No oropharyngeal exudate or posterior oropharyngeal erythema. Cardiovascular: Rate and Rhythm: Normal rate and regular rhythm. Heart sounds: Normal heart sounds. Pulmonary: Effort: Pulmonary effort is normal. No respiratory distress. Breath sounds: Normal breath sounds. No wheezing or rales. Musculoskeletal: Cervical back: Neck supple. Lymphadenopathy: Cervical: No cervical adenopathy. Skin: General: Skin is warm and dry. Findings: No erythema or rash. Neurological: Mental Status: She is alert. ASSESSMENT/PLAN: 1. Bacterial sinusitis - ICD9: 473.9, 041.9, ICD10: J32.9, B96.89 - Will begin treatment with as per antibiotic as written, see orders - The patient should also be given flonase nasal spray and Coricidin HBP for the first 5-7 days of treatment. - Supportive care with plenty of fluids, rest, and analgesia prn. - AMOXICILLIN 875 MG-POTASSIUM CLAVULANATE 125 MG TABLET 2. Elev (more content not included)... [facility] 03-31-2023 History of Presen t illness Narrative Subjective Sinus Problem Associated symptoms include congestion, coughing and headaches. Pertinent negatives include no chills or sore throat. Tana Queen is a 32 year old female who presents with one week of nasal congestion and drainage, cough. In the past few days she has had increasing sinus pressure and states I feel like someone punched me in the nose . She has not had a fever. She has taken dayquil at home. Review of Systems Constitutional: Negative for chills. HENT: Positive for congestion, ear pain (pressure) and sinus pain. Negative for sore throat. Respiratory: Positive for cough. Negative for shortness of breath. Cardiovascular: Negative. Neurological: Positive for dizziness and headaches. BP 169/103 Pulse 96 Temp 37.2 C (99 F) Resp 20 Wt (!) 163 kg (359 lb 6.4 oz) LMP 01/13/2023 (Approximate) SpO2 98% BMI 59.81 kg/m PAST MEDICAL HISTORY Diagnosis Date Asthma Heartburn Obesity Tobacco abuse PAST SURGICAL HISTORY Procedure Laterality Date LAPS SURG CHOLECYSTECTOMY W/CHOLANGIOGRAPHY 08-17-14 ALLERGIES Acetaminophen, Doxycycline, and Hydrocodone MEDICATIONS amoxicillin-clavulanate potassium (AUGMENTIN) 875-125 mg per tablet Take 1 tablet by mouth two times a day for 7 days. albuterol HFA (VENTOLIN HFA) 90 mcg/actuation inhaler Inhale 2 Puffs as instructed every 4 hours as needed. predniSONE (DELTASONE) 10 mg tablet Take 4 tabs daily for 3 days, then 2 tabs daily for 3 days, then 1 tab daily for 3 days with food. (Patient not taking: Reported on 03/31/2023) albuterol (PROVENTIL) 2.5 mg /3 mL (0.083 %) nebulizer solution Use 3 mL via nebulizer every 4 hours as needed for wheezing/shortness of breath. Use over 5-15minutes. ppibgffm-qasdqlwzy-heocarkgqknep e (CORTISPORIN) otic solution Use 3 Drops in the right ear four times daily. omeprazole (PRILOSEC) 40 mg capsule Take 1 capsule by mouth once daily. loratadine (CLARITIN) 10 mg tablet Take 1 tablet by mouth once daily. fluticasone (FLONASE) 50 mcg/actuation nasal spray Use 2 Sprays in each nostril once daily. Rinse mouth after use. albuterol (PROVENTIL) 2.5 mg /3 mL (0.083 %) nebulizer solution Use 3 mL via nebulizer every 4 hours as needed for wheezing/shortness of breath. Use over 5-15minutes. montelukast (SINGULAIR) 10 mg tablet Take 1 tablet by mouth daily at bedtime. fluticasone (FLONASE) 50 mcg/actuation nasal spray Use 1 Warren in each nostril once daily. triamcinolone acetonide (KENALOG) 0.1 % cream Apply 1 application to affected area three times daily. Apply sparingly to area for rash/itching. FAMILY HISTORY Problem Relation Age of Onset Heart Maternal Grandfather Enlarged heart, 1993 Cancer Maternal Grandfather Lung cancer, from Diabetes Maternal Grandfather Hypertension Mother Thyroid Mother Heart Paternal Grandfather other (Other) Father Raynaud's other (BPH) Father Ovarian cancer Maternal Aunt other (sudden ) Maternal Uncle Psychiatry Paternal Aunt bipolar, diability Psychiatry Paternal Aunt suicide Social History Tobacco Use Smoking status: Every Day Packs/day: 0.80 Years: 4.00 Additional pack years: 0.00 Total pack years: 3.20 Types: Cigarettes Smokeless tobacco: Never Tobacco comments: cut to half a pack. Substance Use Topics Alcohol use: Yes Comment: 1 drink per week Drug use: No Objective Physical Exam Vitals and nursing note reviewed. Constitutional: General: She is not in acute distress. Appearance: Normal appearance. She is obese. She is not ill-appearing. HENT: Right Ear: Tympanic membrane, ear canal and external ear normal. Left Ear: Tympanic membrane, ear canal and external ear normal. Nose: Nasal tenderness, mucosal edema, congestion and rhinorrhea present. Mouth/Throat: Pharynx: Uvula midline. No oropharyngeal exudate or posterior oropharyngeal erythema. Cardiovascular: Rate and Rhythm: Normal rate and regular rhythm. Heart sounds: Normal heart sounds. Pulmonary: Effort: Pulmonary effort is normal. No respiratory distress. Breath sounds: Normal breath sounds. No wheezing or rales. Musculoskeletal: Cervical back: Neck supple. Lymphadenopathy: Cervical: No cervical adenopathy. Skin: General: Skin is warm and dry. Findings: No erythema or rash. Neurological: Mental Status: She is alert. ASSESSMENT/PLAN: 1. Bacterial sinusitis - ICD9: 473.9, 041.9, ICD10: J32.9, B96.89 - Will begin treatment with as per antibiotic as written, see orders - The patient should also be given flonase nasal spray and Coricidin HBP for the first 5-7 days of treatment. - Supportive care with plenty of fluids, rest, and analgesia prn. - AMOXICILLIN 875 MG-POTASSIUM CLAVULANATE 125 MG TABLET 2. Elevated blood pressure reading without diagnosis of hypertension - ICD9: 796.2, ICD10: R03.0 - Recommended regular aerobic exercise. - Recommend home blood pressure monitoring, if remaining elevated, please follow up with you PCP. - Follow-up with your PCP in 3-5 days if symptoms have not improved or sooner if symptoms worsen - Discussed red flags and need for immediate medical evaluation if any occur. - Discussed supportive care treatment with fluids, rest and analgesia. - Discussed expected course of illness Yas Alas APRN.BLIND HANGER documented in this encounter [facility] 03-31-2023 Instructions Yas Alas APRN.BLIND HANGER - 03/31/2023 1:36 PM EST Images from the original note were not included. ASSESSMENT/PLAN: 1. Bacterial sinusitis - ICD9: 473.9, 041.9, ICD10: J32.9, B96.89 - Will begin treatment with as per antibiotic as written, see orders - The patient should also be given flonase nasal spray and Coricidin HBP for the first 5-7 days of treatment. - Supportive care with plenty of fluids, rest, and analgesia prn. - AMOXICILLIN 875 MG-POTASSIUM CLAVULANATE 125 MG TABLET 2. Elevated blood pressure reading without diagnosis of hypertension - ICD9: 796.2, ICD10: R03.0 - Recommended regular aerobic exercise. - Recommend home blood pressure monitoring, if remaining elevated, please follow up with you PCP. - Follow-up with your PCP in 3-5 days if symptoms have not improved or sooner if symptoms worsen - Discussed red flags and need for immediate medical evaluation if any occur. - Discussed supportive care treatment with fluids, rest and analgesia. - Discussed expected course of illness Yas Alas APRN.NIEVES Adult Sinusitis Patient Education What is Sinusitis? Sinusitis [duqn-zql-nfqq-tis] is inflammation of the sinuses or swelling of the lining of the sinus cavity or nose. During an infection the sinuses become blocked with fluid causing swelling of the lining of the sinuses. Symptoms: (viral and bacterial infections) Stuffy nose Runny nose Postnasal drip Fever Toothache Headache Tiredness Cough Sore throat Face and head pressure and or pain Common causes: 98% of sinus infections are viral caused by viruses. Risk Factors of Sinusitis Include: Allergies, air pollution, indoor humidity and outdoor temperature changes, andstructural changes in the nose may contribute to sinus pain, pressure and congestion. When to get help? Temperature greater than 100.4 F Symptoms lasting more than 10 days or worsening symptoms greater than 7-10 days. If you do not improve or worsen after a course of antibiotics, you should be re-examined. Diagnosis and Treatment: Your healthcare provider will ask a number of questions about your symptoms and how long they have occurred. If symptoms of sinusitis persist greater than 10 days, it is possible you have a bacterial sinus infection and an antibiotic is prescribed. If it is viral, antibiotics will not help. You may be instructed to take hxde-mjv-kqshqms medications for symptoms. including fever reducers acetaminophen or ibuprofen, nasal saline spray, cough and cold preparations and decongestants as prescribed by the physician, nurse practitioner or physician social services assistant. Self-Care and Prevention: Rest Fluids for hydration Good hand washing Humidifier Avoid smoking and exposure to second hand smoke Avoid sick contacts documented in this encounter [facility] 01-30-2023 Note HNO ID: [id number] Author: Fadi Verma MD Service: ? Author Type: Physician Type: Progress Notes Filed: 01/30/2023 12:25 PM Note Text: Patient presents with: Ear Pain: Bilat ear pain, Left worse, sinus congestion, x 2 weeks HPI: Feeling sick for almost 2 weeks. COVID/Flu/RSV were negative. Her L>R ears hurt. Cold symptoms are lingering. Positive symptoms: Earache, Sinus pressure, Shortness of breath, Nasal Congestion, Rhinorrhea, otorrhea Negative symptoms: Fever, tinnitus, dizziness, OTC: Prescribed augmentin, prednisone, and albuterol for left otitis media and asthma with URI 01/20/23. Still using inhaler. PAST MEDICAL HISTORY Diagnosis Date Asthma Heartburn Obesity Tobacco abuse MEDICATIONS: Current Outpatient Medications Medication Sig predniSONE (DELTASONE) 10 mg tablet Take 4 tabs daily for 3 days, then 2 tabs daily for 3 days, then 1 tab daily for 3 days with food. albuterol (PROVENTIL) 2.5 mg /3 mL (0.083 %) nebulizer solution Use 3 mL via nebulizer every 4 hours as needed for wheezing/shortness of breath. Use over 5-15minutes. glvlnwcg-hdlzmqwak-wydkqzwttnyce e (CORTISPORIN) otic solution Use 3 Drops in the right ear four times daily. albuterol HFA (VENTOLIN HFA) 90 mcg/actuation inhaler Inhale 2 Puffs as instructed every 4 hours as needed. omeprazole (PRILOSEC) 40 mg capsule Take 1 capsule by mouth once daily. loratadine (CLARITIN) 10 mg tablet Take 1 tablet by mouth once daily. fluticasone (FLONASE) 50 mcg/actuation nasal spray Use 2 Sprays in each nostril once daily. Rinse mouth after use. albuterol (PROVENTIL) 2.5 mg /3 mL (0.083 %) nebulizer solution Use 3 mL via nebulizer every 4 hours as needed for wheezing/shortness of breath. Use over 5-15minutes. montelukast (SINGULAIR) 10 mg tablet Take 1 tablet by mouth daily at bedtime. fluticasone (FLONASE) 50 mcg/actuation nasal spray Use 1 Warren in each nostril once daily. triamcinolone acetonide (KENALOG) 0.1 % cream Apply 1 application to affected area three times daily. Apply sparingly to area for rash/itching. No current facility-administered medications for this visit. ALLERGIES: ALLERGIES Allergen Reactions Acetaminophen Other: See Comments Doxycycline Vomiting Hydrocodone Other: See Comments VITALS: BP 128/76 Pulse 100 Temp 37.2 ?C (99 ?F) Resp 20 Wt (!) 157.6 kg (347 lb 6.4 oz) LMP 01/13/2023 (Approximate) SpO2 96% BMI 57.81 kg/m? PHYSICAL EXAM: GEN: mildly ill appearing HEENT: PERRL, EOMI, conjunctiva clear Ears: Right canal clear. Sheet of cerumen in the mid-distal canal obscuring view moved with plastic cerumen hook. Dilated vessels of the left tympanic membrane otherwise TMs without erythema, bulge, or effusion Sinuses: non-tender frontal sinus, non-tender maxillary sinuses Throat: moist mucous membranes, no erythema, no exudate Neck: supple, no thyromegaly, no lymphadenopathy HEART: regular rate and rhythm, no murmurs LUNGS: clear to auscultation, no wheezes or crackles, no increased WOB ASSESSMENT/PLAN: 1. Otalgia, left - ICD9: 388.70, ICD10: H92.02 Resolved otitis media and effusion. Add decongestant to help with eustachian tube dysfunction - PSEUDOEPHEDRINE 60 MG TABLET Fadi Verma MD [facility] 01-30-2023 History of Presen t illness Narrative Patient presents with: Ear Pain: Bilat ear pain, Left worse, sinus congestion, x 2 weeks HPI: Feeling sick for almost 2 weeks. COVID/Flu/RSV were negative. Her L>R ears hurt. Cold symptoms are lingering. Positive symptoms: Earache, Sinus pressure, Shortness of breath, Nasal Congestion, Rhinorrhea, otorrhea Negative symptoms: Fever, tinnitus, dizziness, OTC: Prescribed augmentin, prednisone, and albuterol for left otitis media and asthma with URI 01/20/23. Still using inhaler. PAST MEDICAL HISTORY Diagnosis Date Asthma Heartburn Obesity Tobacco abuse MEDICATIONS: Current Outpatient Medications Medication Sig predniSONE (DELTASONE) 10 mg tablet Take 4 tabs daily for 3 days, then 2 tabs daily for 3 days, then 1 tab daily for 3 days with food. albuterol (PROVENTIL) 2.5 mg /3 mL (0.083 %) nebulizer solution Use 3 mL via nebulizer every 4 hours as needed for wheezing/shortness of breath. Use over 5-15minutes. eibtegse-rulaychvm-uqcjzoopmhnzh e (CORTISPORIN) otic solution Use 3 Drops in the right ear four times daily. albuterol HFA (VENTOLIN HFA) 90 mcg/actuation inhaler Inhale 2 Puffs as instructed every 4 hours as needed. omeprazole (PRILOSEC) 40 mg capsule Take 1 capsule by mouth once daily. loratadine (CLARITIN) 10 mg tablet Take 1 tablet by mouth once daily. fluticasone (FLONASE) 50 mcg/actuation nasal spray Use 2 Sprays in each nostril once daily. Rinse mouth after use. albuterol (PROVENTIL) 2.5 mg /3 mL (0.083 %) nebulizer solution Use 3 mL via nebulizer every 4 hours as needed for wheezing/shortness of breath. Use over 5-15minutes. montelukast (SINGULAIR) 10 mg tablet Take 1 tablet by mouth daily at bedtime. fluticasone (FLONASE) 50 mcg/actuation nasal spray Use 1 Warren in each nostril once daily. triamcinolone acetonide (KENALOG) 0.1 % cream Apply 1 application to affected area three times daily. Apply sparingly to area for rash/itching. No current facility-administered medications for this visit. ALLERGIES: ALLERGIES Allergen Reactions Acetaminophen Other: See Comments Doxycycline Vomiting Hydrocodone Other: See Comments VITALS: BP 128/76 Pulse 100 Temp 37.2 C (99 F) Resp 20 Wt (!) 157.6 kg (347 lb 6.4 oz) LMP 01/13/2023 (Approximate) SpO2 96% BMI 57.81 kg/m PHYSICAL EXAM: GEN: mildly ill appearing HEENT: PERRL, EOMI, conjunctiva clear Ears: Right canal clear. Sheet of cerumen in the mid-distal canal obscuring view moved with plastic cerumen hook. Dilated vessels of the left tympanic membrane otherwise TMs without erythema, bulge, or effusion Sinuses: non-tender frontal sinus, non-tender maxillary sinuses Throat: moist mucous membranes, no erythema, no exudate Neck: supple, no thyromegaly, no lymphadenopathy HEART: regular rate and rhythm, no murmurs LUNGS: clear to auscultation, no wheezes or crackles, no increased WOB ASSESSMENT/PLAN: 1. Otalgia, left - ICD9: 388.70, ICD10: H92.02 Resolved otitis media and effusion. Add decongestant to help with eustachian tube dysfunction - PSEUDOEPHEDRINE 60 MG TABLET Fadi Verma MD documented in this encounter [facility] 01-30-2023 Miscellaneous Notes Patient has been identified by name and date of : Yes Requested Prescriptions Pending Prescriptions Disp Refills albuterol HFA (VENTOLIN HFA) 90 mcg/actuation inhaler 18 g 5 Sig: Inhale 2 Puffs as instructed every 4 hours as needed. POPPY:02-08-22 No known appt. RX INSTRUCTIONS: Patient aware RX will be sent to pharmacy. No need to notify patient. Lindsey Devine documented in this encounter [facility] 01-21-2023 Miscellaneous Notes Patient given results and verbalized understanding of instructions given. Esme Schwartz LPN Patient is negative for flu COVID and RSV. Please notify thank you documented in this encounter [facility] 01-20-2023 Note HNO ID: [id number] Author: Tiago Sam APRN.NIEVES Service: ? Author Type: Nurse Practitioner Type: Progress Notes Filed: 01/20/2023 7:42 PM Note Text: This note was created using NoteWriter. Subjective Tana Queen is a 32 year old female. 32 year old female with PMH asthma, IBS, GERD presents for illness. Acute onset 2 days ago I feel like shit +body aches +fever +nasal congestion +cough +wheezes +body aches Left ear pain Has been using home breathing treatments every 2 to 3 hours Has used Inhaler DayQuil/NyQuil +tobacco smoker. She was on vacation this past week, + ill contacts The history is provided by the patient. No foreign languages department chair was used. Flu Like Symptoms This is a new problem. The current episode started in the past 7 days. The problem occurs constantly. The problem has been unchanged. Associated symptoms include chills, congestion, coughing, fatigue, a fever, headaches and myalgias. Pertinent negatives include no abdominal pain, anorexia, arthralgias, change in bowel habit, chest pain, diaphoresis, joint swelling, nausea, neck pain, numbness, rash, sore throat, swollen glands, urinary symptoms, vertigo, visual change, vomiting or weakness. Nothing aggravates the symptoms. Treatments tried: see HPI. The treatment provided no relief. PAST MEDICAL HISTORY Diagnosis Date Asthma Heartburn Obesity Tobacco abuse PAST SURGICAL HISTORY Procedure Laterality Date LAPS SURG CHOLECYSTECTOMY W/CHOLANGIOGRAPHY 08-17-14 ALLERGIES Acetaminophen, Doxycycline, and Hydrocodone MEDICATIONS amoxicillin-clavulanic acid (AUGMENTIN) 875-125 mg per tablet Take 1 tablet by mouth twice daily for 5 days. predniSONE (DELTASONE) 10 mg tablet Take 4 tabs daily for 3 days, then 2 tabs daily for 3 days, then 1 tab daily for 3 days with food. lifyyeze-ifglmlqjf-mdnnylarwgrkz e (CORTISPORIN) otic solution Use 3 Drops in the right ear four times daily. albuterol HFA (VENTOLIN HFA) 90 mcg/actuation inhaler Inhale 2 Puffs as instructed every 4 hours as needed. omeprazole (PRILOSEC) 40 mg capsule Take 1 capsule by mouth once daily. loratadine (CLARITIN) 10 mg tablet Take 1 tablet by mouth once daily. fluticasone (FLONASE) 50 mcg/actuation nasal spray Use 2 Sprays in each nostril once daily. Rinse mouth after use. albuterol (PROVENTIL) 2.5 mg /3 mL (0.083 %) nebulizer solution Use 3 mL via nebulizer every 4 hours as needed for wheezing/shortness of breath. Use over 5-15minutes. montelukast (SINGULAIR) 10 mg tablet Take 1 tablet by mouth daily at bedtime. fluticasone (FLONASE) 50 mcg/actuation nasal spray Use 1 Warren in each nostril once daily. triamcinolone acetonide (KENALOG) 0.1 % cream Apply 1 application to affected area three times daily. Apply sparingly to area for rash/itching. FAMILY HISTORY Problem Relation Age of Onset Heart Maternal Grandfather Enlarged heart, 1993 Cancer Maternal Grandfather Lung cancer, from Diabetes Maternal Grandfather Hypertension Mother Thyroid Mother Heart Paternal Grandfather other (Other) Father Raynaud's other (BPH) Father Ovarian cancer Maternal Aunt other (sudden ) Maternal Uncle Psychiatry Paternal Aunt bipolar, diability Psychiatry Paternal Aunt suicide Social History Tobacco Use Smoking status: Every Day Packs/day: 0.80 Years: 4.00 Additional pack years: 0.00 Total pack years: 3.20 Types: Cigarettes Smokeless tobacco: Never Tobacco comments: cut to half a pack. Substance Use Topics Alcohol use: Yes Comment: 1 drink per week Drug use: No Review of Systems Constitutional: Positive for chills, fatigue and fever. Negative for diaphoresis. HENT: Positive for congestion and ear pain. Negative for sinus pressure, sinus pain and sore throat. Eyes: Negative for photophobia, pain, discharge, redness and itching. Respiratory: Positive for cough. Cardiovascular: Negative for chest pain, palpitations and leg swelling. Gastrointestinal: Negative for abdominal pain, anorexia, change in bowel habit, nausea and vomiting. Musculoskeletal: Positive for myalgias. Negative for arthralgias, joint swelling and neck pain. Skin: Negative for rash. Allergic/Immunologic: Negative for environmental allergies, food allergies and immunocompromised state. Neurological: Positive for headaches. Negative for vertigo, weakness and numbness. Hematological: Negative for adenopathy. Does not bruise/bleed easily. Objective BP 165/83 Pulse 115 Temp (!) 38.1 ?C (100.5 ?F) Resp 26 Wt (!) 155.9 kg (343 lb 12.8 oz) LMP 10/01/2022 (Approximate) SpO2 91% BMI 57.21 kg/m? Repeat pulse Ox 93 percent at resting Respiration 20 Physical Exam Vitals and nursing note reviewed. Constitutional: General: She is not in acute distress. Appearance: Normal appearance. She is obese. She is not ill-appearing, toxic-appearing or diaphoretic. HENT: H (more content not included)... [facility] 01-20-2023 Miscellaneous Notes Addended by: TIAGO SAM on: 01/20/2023 07:51 PM Modules accepted: Orders documented in this encounter [facility] 01-20-2023 History of Presen t illness Narrative This note was created using WhiteSmokeriter. Subjective Tana Queen is a 32 year old female. 32 year old female with PMH asthma, IBS, GERD presents for illness. Acute onset 2 days ago I feel like shit +body aches +fever +nasal congestion +cough +wheezes +body aches Left ear pain Has been using home breathing treatments every 2 to 3 hours Has used Inhaler DayQuil/NyQuil +tobacco smoker. She was on vacation this past week, + ill contacts The history is provided by the patient. No foreign languages department chair was used. Flu Like Symptoms This is a new problem. The current episode started in the past 7 days. The problem occurs constantly. The problem has been unchanged. Associated symptoms include chills, congestion, coughing, fatigue, a fever, headaches and myalgias. Pertinent negatives include no abdominal pain, anorexia, arthralgias, change in bowel habit, chest pain, diaphoresis, joint swelling, nausea, neck pain, numbness, rash, sore throat, swollen glands, urinary symptoms, vertigo, visual change, vomiting or weakness. Nothing aggravates the symptoms. Treatments tried: see HPI. The treatment provided no relief. PAST MEDICAL HISTORY Diagnosis Date Asthma Heartburn Obesity Tobacco abuse PAST SURGICAL HISTORY Procedure Laterality Date LAPS SURG CHOLECYSTECTOMY W/CHOLANGIOGRAPHY 08-17-14 ALLERGIES Acetaminophen, Doxycycline, and Hydrocodone MEDICATIONS amoxicillin-clavulanic acid (AUGMENTIN) 875-125 mg per tablet Take 1 tablet by mouth twice daily for 5 days. predniSONE (DELTASONE) 10 mg tablet Take 4 tabs daily for 3 days, then 2 tabs daily for 3 days, then 1 tab daily for 3 days with food. firmrmaw-mklhixqpv-qprbsvpigsxer e (CORTISPORIN) otic solution Use 3 Drops in the right ear four times daily. albuterol HFA (VENTOLIN HFA) 90 mcg/actuation inhaler Inhale 2 Puffs as instructed every 4 hours as needed. omeprazole (PRILOSEC) 40 mg capsule Take 1 capsule by mouth once daily. loratadine (CLARITIN) 10 mg tablet Take 1 tablet by mouth once daily. fluticasone (FLONASE) 50 mcg/actuation nasal spray Use 2 Sprays in each nostril once daily. Rinse mouth after use. albuterol (PROVENTIL) 2.5 mg /3 mL (0.083 %) nebulizer solution Use 3 mL via nebulizer every 4 hours as needed for wheezing/shortness of breath. Use over 5-15minutes. montelukast (SINGULAIR) 10 mg tablet Take 1 tablet by mouth daily at bedtime. fluticasone (FLONASE) 50 mcg/actuation nasal spray Use 1 Warren in each nostril once daily. triamcinolone acetonide (KENALOG) 0.1 % cream Apply 1 application to affected area three times daily. Apply sparingly to area for rash/itching. FAMILY HISTORY Problem Relation Age of Onset Heart Maternal Grandfather Enlarged heart, 1993 Cancer Maternal Grandfather Lung cancer, from Diabetes Maternal Grandfather Hypertension Mother Thyroid Mother Heart Paternal Grandfather other (Other) Father Raynaud's other (BPH) Father Ovarian cancer Maternal Aunt other (sudden ) Maternal Uncle Psychiatry Paternal Aunt bipolar, diability Psychiatry Paternal Aunt suicide Social History Tobacco Use Smoking status: Every Day Packs/day: 0.80 Years: 4.00 Additional pack years: 0.00 Total pack years: 3.20 Types: Cigarettes Smokeless tobacco: Never Tobacco comments: cut to half a pack. Substance Use Topics Alcohol use: Yes Comment: 1 drink per week Drug use: No Review of Systems Constitutional: Positive for chills, fatigue and fever. Negative for diaphoresis. HENT: Positive for congestion and ear pain. Negative for sinus pressure, sinus pain and sore throat. Eyes: Negative for photophobia, pain, discharge, redness and itching. Respiratory: Positive for cough. Cardiovascular: Negative for chest pain, palpitations and leg swelling. Gastrointestinal: Negative for abdominal pain, anorexia, change in bowel habit, nausea and vomiting. Musculoskeletal: Positive for myalgias. Negative for arthralgias, joint swelling and neck pain. Skin: Negative for rash. Allergic/Immunologic: Negative for environmental allergies, food allergies and immunocompromised state. Neurological: Positive for headaches. Negative for vertigo, weakness and numbness. Hematological: Negative for adenopathy. Does not bruise/bleed easily. Objective BP 165/83 Pulse 115 Temp (!) 38.1 C (100.5 F) Resp 26 Wt (!) 155.9 kg (343 lb 12.8 oz) LMP 10/01/2022 (Approximate) SpO2 91% BMI 57.21 kg/m Repeat pulse Ox 93 percent at resting Respiration 20 Physical Exam Vitals and nursing note reviewed. Constitutional: General: She is not in acute distress. Appearance: Normal appearance. She is obese. She is not ill-appearing, toxic-appearing or diaphoretic. HENT: Head: Normocephalic and atraumatic. Right Ear: Ear canal and external ear normal. Left Ear: Ear canal and external ear normal. Ears: Comments: Left TM erythematous and bulging Nose: Nose normal. No congestion or rhinorrhea. Mouth/Throat: Mouth: Mucous membranes are moist. Pharynx: No oropharyngeal exudate or posterior oropharyngeal erythema. Eyes: General: Right eye: No discharge. Left eye: No discharge. Extraocular Movements: Extraocular movements intact. Conjunctiva/sclera: Conjunctivae normal. Pupils: Pupils are equal, round, and reactive to light. Cardiovascular: Rate and Rhythm: Normal rate and regular rhythm. Pulses: Normal pulses. Heart sounds: Normal heart sounds. No murmur heard. No friction rub. Pulmonary: Effort: Pulmonary effort is normal. No respiratory distress. Breath sounds: No stridor. Wheezing (expiratory wheezes lower base noted) present. No rhonchi or rales. Comments: Pulse Ox 93 percent Chest rises and falls equally Fair air exchange Chest: Chest wall: No tenderness. Abdominal: General: Abdomen is flat. There is no distension. Palpations: Abdomen is soft. There is no mass. Tenderness: There is no abdominal tenderness. There is no right CVA tenderness, left CVA tenderness, guarding or rebound. Hernia: No hernia is present. Musculoskeletal: General: No swelling, tenderness, deformity or signs of injury. Normal range of motion. Cervical back: Normal range of motion and neck supple. No rigidity. Right lower leg: No edema. Left lower leg: No edema. Lymphadenopathy: Cervical: No cervical adenopathy. Skin: General: Skin is warm and dry. Coloration: Skin is not jaundiced or pale. Findings: No bruising, erythema, lesion or rash. Neurological: General: No focal deficit present. Mental Status: She is alert and oriented to person, place, and time. Cranial Nerves: No cranial nerve deficit. Sensory: No sensory deficit. Motor: No weakness. Coordination: Coordination normal. Gait: Gait normal. Psychiatric: Mood and Affect: Mood normal. Behavior: Behavior normal. Thought Content: Thought content normal. Judgment: Judgment normal. Assessment and Plan ASSESSMENT/PLAN: 1. Acute otitis media, left - ICD9: 382.9, ICD10: H66.92 (primary diagnosis) - Will begin treatment with as per antibiotic as written, see orders - The patient should also be given OTC cough and cold meds as needed, warm salt water gargles, throat lozenges and/or OTC throat spray as needed, and nasal saline gtts and suction prn for the first 5-7 days of treatment. - Supportive care with plenty of fluids, rest, and analgesia prn. - Follow up in 3-5 days if symptoms persist or worsen. 2. URI, acute - ICD9: 465.9, ICD10: J06.9 - Symptomatic treatment with prn analgesia - Supportive care with fluids and rest - The patient may also use OTC cough and cold meds as needed, warm salt water gargles, throat lozenges and/or OTC throat spray as needed, and nasal saline gtts and suction prn. - Follow up in 3-5 days if symptoms persist or sooner if worsening of symptoms - AMOXICILLIN 875 MG-POTASSIUM CLAVULANATE 125 MG TABLET - COVID & INFLUENZA A/B & RSV NAAT, ROUTINE - PREDNISONE 10 MG TABLET Tiago Sam APRN.BLIND HANGER documented in this encounter [facility] 01-02-2023 Note HNO ID: [id number] Author: Yas Alas APRN.BLIND HANGER Service: ? Author Type: Nurse Practitioner Type: Progress Notes Filed: 01/02/2023 12:30 PM Note Text: This note was created using WhiteSmokeriter. Subjective Tana Queen is a 32 year old female. Patient presents with right ear and throat pain for two days. Pain is worse when she swallows. She denies fever, cough, or congestion. Denies any contact with known ill person. She reports a history of ear infections. The history is provided by the patient. Ear Pain Associated symptoms include a sore throat. Pertinent negatives include no chills, congestion, coughing or fever. Review of Systems Constitutional: Negative for chills and fever. HENT: Positive for ear pain and sore throat. Negative for congestion, ear discharge, postnasal drip, rhinorrhea, sinus pressure and sinus pain. Respiratory: Negative for cough and shortness of breath. All other systems reviewed and are negative. Objective BP 132/86 Pulse 91 Temp 37.1 ?C (98.8 ?F) Resp 20 Wt (!) 155.1 kg (342 lb) LMP 10/01/2022 (Approximate) SpO2 97% BMI 56.91 kg/m? PAST MEDICAL HISTORY Diagnosis Date Asthma Heartburn Obesity Tobacco abuse PAST SURGICAL HISTORY Procedure Laterality Date LAPS SURG CHOLECYSTECTOMY W/CHOLANGIOGRAPHY 08-17-14 ALLERGIES Acetaminophen, Doxycycline, and Hydrocodone MEDICATIONS ivqqypmf-nwsuncatv-prunkvuhbamzg e (CORTISPORIN) otic solution Use 3 Drops in the right ear four times daily. albuterol HFA (VENTOLIN HFA) 90 mcg/actuation inhaler Inhale 2 Puffs as instructed every 4 hours as needed. omeprazole (PRILOSEC) 40 mg capsule Take 1 capsule by mouth once daily. loratadine (CLARITIN) 10 mg tablet Take 1 tablet by mouth once daily. fluticasone (FLONASE) 50 mcg/actuation nasal spray Use 2 Sprays in each nostril once daily. Rinse mouth after use. albuterol (PROVENTIL) 2.5 mg /3 mL (0.083 %) nebulizer solution Use 3 mL via nebulizer every 4 hours as needed for wheezing/shortness of breath. Use over 5-15minutes. montelukast (SINGULAIR) 10 mg tablet Take 1 tablet by mouth daily at bedtime. fluticasone (FLONASE) 50 mcg/actuation nasal spray Use 1 Warren in each nostril once daily. triamcinolone acetonide (KENALOG) 0.1 % cream Apply 1 application to affected area three times daily. Apply sparingly to area for rash/itching. FAMILY HISTORY Problem Relation Age of Onset Heart Maternal Grandfather Enlarged heart, 1992 Cancer Maternal Grandfather Lung cancer, from Diabetes Maternal Grandfather Hypertension Mother Thyroid Mother Heart Paternal Grandfather other (Other) Father Raynaud's other (BPH) Father Ovarian cancer Maternal Aunt other (sudden ) Maternal Uncle Psychiatry Paternal Aunt bipolar, diability Psychiatry Paternal Aunt suicide Social History Tobacco Use Smoking status: Every Day Packs/day: 0.80 Years: 4.00 Additional pack years: 0.00 Total pack years: 3.20 Types: Cigarettes Smokeless tobacco: Never Tobacco comments: cut to half a pack. Substance Use Topics Alcohol use: Yes Comment: 1 drink per week Drug use: No Physical Exam Vitals reviewed. Constitutional: General: She is not in acute distress. Appearance: Normal appearance. She is not ill-appearing, toxic-appearing or diaphoretic. HENT: Right Ear: Ear canal and external ear normal. There is no impacted cerumen. Tympanic membrane is erythematous. Tympanic membrane is not perforated, retracted or bulging. Left Ear: Tympanic membrane, ear canal and external ear normal. There is no impacted cerumen. Tympanic membrane is not perforated, erythematous, retracted or bulging. Mouth/Throat: Mouth: Mucous membranes are moist. Pharynx: Oropharynx is clear. Posterior oropharyngeal erythema present. No oropharyngeal exudate. Tonsils: No tonsillar exudate or tonsillar abscesses. 3+ on the right. 2+ on the left. Cardiovascular: Rate and Rhythm: Normal rate and regular rhythm. Pulmonary: Effort: Pulmonary effort is normal. No respiratory distress. Breath sounds: Normal breath sounds. Musculoskeletal: Cervical back: Neck supple. Tenderness (lymph node tenderness) present. Lymphadenopathy: Cervical: Cervical adenopathy present. Neurological: General: No focal deficit present. Mental Status: She is alert and oriented to person, place, and time. Mental status is at baseline. Psychiatric: Mood and Affect: Mood normal. Behavior: Behavior normal. Thought Content: Thought content normal. Judgment: Judgment normal. Assessment and Plan ASSESSMENT/PLAN: 1. Acute otitis media, right - ICD9: 382.9, ICD10: H66.91 (primary diagnosis) - Will begin treatment with Augmentin 875 mg PO BID for 7 days. Patient reports usually treated with augmentin due to chronic ear infections. - The patient should also be given warm salt water gargles, throat lozenges and/or OTC throat spra (more content not included)... [facility] 01-02-2023 Instructions Yas Alas APRN.BLIND HANGER - 01/02/2023 12:30 PM EDT ASSESSMENT/PLAN: 1. Acute otitis media, right - ICD9: 382.9, ICD10: H66.91 (primary diagnosis) - Will begin treatment with Augmentin 875 mg PO BID for 7 days. Patient reports usually treated with augmentin due to chronic ear infections. - The patient should also be given warm salt water gargles, throat lozenges and/or OTC throat spray as needed for the first 5-7 days of treatment. - Supportive care with plenty of fluids, rest, and analgesia prn. - Follow up in 3-5 days if symptoms persist or worsen. 2. Sore throat - ICD9: 462, ICD10: J02.9 - suspect viral - Rapid Strep negative in the office today - Discussed supportive care treatment with fluids, rest and analgesia. - The patient may also use warm salt water gargles, throat lozenges and/or OTC throat spray as needed. - The patient should follow up in 3-5 days if symptoms persist or worsen E Viktoria [employer] CLAIM ADJUSTER Student TEACHING PROVIDER (Physician/PA/ENROBING MACHINE CORDER) NOTE OF PERSONAL INVOLVEMENT IN CARE: I have personally seen and examined the patient and performed the medical decision-making components. I have reviewed the Advanced Practice Registered Nurse (ENROBING MACHINE CORDER) Student's documentation and verified the findings in the note as written. Any additions or changes are noted in bold/italics. Signature: Yas Alas Date: 01/02/2023 Time: 12:29 PM documented in this encounter [facility] 01-02-2023 History of Presen t illness Narrative This note was created using WhiteSmokeriter. Joe Queen is a 32 year old female. Patient presents with right ear and throat pain for two days. Pain is worse when she swallows. She denies fever, cough, or congestion. Denies any contact with known ill person. She reports a history of ear infections. The history is provided by the patient. Ear Pain Associated symptoms include a sore throat. Pertinent negatives include no chills, congestion, coughing or fever. Review of Systems Constitutional: Negative for chills and fever. HENT: Positive for ear pain and sore throat. Negative for congestion, ear discharge, postnasal drip, rhinorrhea, sinus pressure and sinus pain. Respiratory: Negative for cough and shortness of breath. All other systems reviewed and are negative. Objective BP 132/86 Pulse 91 Temp 37.1 C (98.8 F) Resp 20 Wt (!) 155.1 kg (342 lb) LMP 10/01/2022 (Approximate) SpO2 97% BMI 56.91 kg/m PAST MEDICAL HISTORY Diagnosis Date Asthma Heartburn Obesity Tobacco abuse PAST SURGICAL HISTORY Procedure Laterality Date LAPS SURG CHOLECYSTECTOMY W/CHOLANGIOGRAPHY 08-17-14 ALLERGIES Acetaminophen, Doxycycline, and Hydrocodone MEDICATIONS xjahirzo-khaowwaay-rjgsxmwsvjhoo e (CORTISPORIN) otic solution Use 3 Drops in the right ear four times daily. albuterol HFA (VENTOLIN HFA) 90 mcg/actuation inhaler Inhale 2 Puffs as instructed every 4 hours as needed. omeprazole (PRILOSEC) 40 mg capsule Take 1 capsule by mouth once daily. loratadine (CLARITIN) 10 mg tablet Take 1 tablet by mouth once daily. fluticasone (FLONASE) 50 mcg/actuation nasal spray Use 2 Sprays in each nostril once daily. Rinse mouth after use. albuterol (PROVENTIL) 2.5 mg /3 mL (0.083 %) nebulizer solution Use 3 mL via nebulizer every 4 hours as needed for wheezing/shortness of breath. Use over 5-15minutes. montelukast (SINGULAIR) 10 mg tablet Take 1 tablet by mouth daily at bedtime. fluticasone (FLONASE) 50 mcg/actuation nasal spray Use 1 Warren in each nostril once daily. triamcinolone acetonide (KENALOG) 0.1 % cream Apply 1 application to affected area three times daily. Apply sparingly to area for rash/itching. FAMILY HISTORY Problem Relation Age of Onset Heart Maternal Grandfather Enlarged heart, 1993 Cancer Maternal Grandfather Lung cancer, from Diabetes Maternal Grandfather Hypertension Mother Thyroid Mother Heart Paternal Grandfather other (Other) Father Raynaud's other (BPH) Father Ovarian cancer Maternal Aunt other (sudden ) Maternal Uncle Psychiatry Paternal Aunt bipolar, diability Psychiatry Paternal Aunt suicide Social History Tobacco Use Smoking status: Every Day Packs/day: 0.80 Years: 4.00 Additional pack years: 0.00 Total pack years: 3.20 Types: Cigarettes Smokeless tobacco: Never Tobacco comments: cut to half a pack. Substance Use Topics Alcohol use: Yes Comment: 1 drink per week Drug use: No Physical Exam Vitals reviewed. Constitutional: General: She is not in acute distress. Appearance: Normal appearance. She is not ill-appearing, toxic-appearing or diaphoretic. HENT: Right Ear: Ear canal and external ear normal. There is no impacted cerumen. Tympanic membrane is erythematous. Tympanic membrane is not perforated, retracted or bulging. Left Ear: Tympanic membrane, ear canal and external ear normal. There is no impacted cerumen. Tympanic membrane is not perforated, erythematous, retracted or bulging. Mouth/Throat: Mouth: Mucous membranes are moist. Pharynx: Oropharynx is clear. Posterior oropharyngeal erythema present. No oropharyngeal exudate. Tonsils: No tonsillar exudate or tonsillar abscesses. 3+ on the right. 2+ on the left. Cardiovascular: Rate and Rhythm: Normal rate and regular rhythm. Pulmonary: Effort: Pulmonary effort is normal. No respiratory distress. Breath sounds: Normal breath sounds. Musculoskeletal: Cervical back: Neck supple. Tenderness (lymph node tenderness) present. Lymphadenopathy: Cervical: Cervical adenopathy present. Neurological: General: No focal deficit present. Mental Status: She is alert and oriented to person, place, and time. Mental status is at baseline. Psychiatric: Mood and Affect: Mood normal. Behavior: Behavior normal. Thought Content: Thought content normal. Judgment: Judgment normal. Assessment and Plan ASSESSMENT/PLAN: 1. Acute otitis media, right - ICD9: 382.9, ICD10: H66.91 (primary diagnosis) - Will begin treatment with Augmentin 875 mg PO BID for 7 days. Patient reports usually treated with augmentin due to chronic ear infections. - The patient should also be given warm salt water gargles, throat lozenges and/or OTC throat spray as needed for the first 5-7 days of treatment. - Supportive care with plenty of fluids, rest, and analgesia prn. - Follow up in 3-5 days if symptoms persist or worsen. 2. Sore throat - ICD9: 462, ICD10: J02.9 - suspect viral - Rapid Strep negative in the office today - Discussed supportive care treatment with fluids, rest and analgesia. - The patient may also use warm salt water gargles, throat lozenges and/or OTC throat spray as needed. - The patient should follow up in 3-5 days if symptoms persist or worsen E Viktoria [employer] CLAIM ADJUSTER Student TEACHING PROVIDER (Physician/PA/ENROBING MACHINE CORDER) NOTE OF PERSONAL INVOLVEMENT IN CARE: I have personally seen and examined the patient and performed the medical decision-making components. I have reviewed the Advanced Practice Registered Nurse (ENROBING MACHINE CORDER) Student's documentation and verified the findings in the note as written. Any additions or changes are noted in bold/italics. Signature: Yas Alas Date: 01/02/2023 Time: 12:29 PM documented in this encounter [facility] 11-30-2022 Note HNO ID: [id number] Author: Fadi Verma MD Service: ? Author Type: Physician Type: Progress Notes Filed: 11/30/2022 8:48 AM Note Text: Patient presents with: Eye Problem: Pt reported (RT) eye swelling, x1 day vision screen 20/20. HPI: Feeling right upper inner eyelid soreness since yesterday afternoon. Positive symptoms: Eyelid swelling/soreness, morning high drainage, Negative symptoms: Cough, Nasal Congestion, Rhinorrhea, Fever, eyelid or eyeball pruritus, foreign body sensation, vision change, OTC: Warm compress. She has had a stye in the past, seems similar MEDICATIONS: Current Outpatient Medications Medication Sig siajaito-hrmazpzjo-eyjfqhknnednm e (CORTISPORIN) otic solution Use 3 Drops in the right ear four times daily. albuterol HFA (VENTOLIN HFA) 90 mcg/actuation inhaler Inhale 2 Puffs as instructed every 4 hours as needed. omeprazole (PRILOSEC) 40 mg capsule Take 1 capsule by mouth once daily. loratadine (CLARITIN) 10 mg tablet Take 1 tablet by mouth once daily. fluticasone (FLONASE) 50 mcg/actuation nasal spray Use 2 Sprays in each nostril once daily. Rinse mouth after use. albuterol (PROVENTIL) 2.5 mg /3 mL (0.083 %) nebulizer solution Use 3 mL via nebulizer every 4 hours as needed for wheezing/shortness of breath. Use over 5-15minutes. montelukast (SINGULAIR) 10 mg tablet Take 1 tablet by mouth daily at bedtime. fluticasone (FLONASE) 50 mcg/actuation nasal spray Use 1 Warren in each nostril once daily. triamcinolone acetonide (KENALOG) 0.1 % cream Apply 1 application to affected area three times daily. Apply sparingly to area for rash/itching. No current facility-administered medications for this visit. ALLERGIES: ALLERGIES Allergen Reactions Acetaminophen Other: See Comments Doxycycline Vomiting Hydrocodone Other: See Comments VITALS: BP 136/78 Pulse 94 Temp 36.6 ?C (97.8 ?F) (Temporal) Resp 18 Wt (!) 154.5 kg (340 lb 9.6 oz) LMP 10/01/2022 (Approximate) SpO2 98% BMI 56.68 kg/m? PHYSICAL EXAM: GEN: Pleasant, in no acute distress. HEENT: Faint erythema and scale on the skin of the face. PERRL, EOMI, conjunctiva clear. Nasal aspect of the right upper eyelid has mild swelling. No palpable mass. No visible pustules in the lash line or palpebral conjunctiva. ASSESSMENT/PLAN: 1. Hordeolum externum of right upper eyelid - ICD9: 373.11, ICD10: H00.011 Probable developing stye. Primary treatment is warm compress. She has leftover ointment from her last stye and may use that (did not actually apply the medicine before). Follow-up with ophthalmology if not resolving after a week. Fadi Verma MD [facility] 11-13-2022 Note HNO ID: [id number] Author: Dia Pelaez APRN.BLIND HANGER Service: ? Author Type: Nurse Practitioner Type: Progress Notes Filed: 11/13/2022 10:55 AM Note Text: Subjective The history is provided by the patient. No foreign languages department chair was used. HPI Tana Queen is a 32 year old female who presents today for CC of right ear pain for 2 week, as well as external ear itching. She has used Augmentin 3 weeks ago for AOM, then using claritin and flonase. Still having itching and drainage in right ear. BP 122/80 Pulse 92 Temp 36.6 ?C (97.8 ?F) Resp 16 Wt (!) 152.9 kg (337 lb) LMP 09/11/2022 SpO2 97% BMI 56.08 kg/m? Social History Tobacco Use Smoking status: Every Day Packs/day: 0.80 Years: 4.00 Pack years: 3.20 Types: Cigarettes Smokeless tobacco: Never Tobacco comments: cut to half a pack. Substance Use Topics Alcohol use: Yes Comment: 1 drink per week Drug use: No PAST MEDICAL HISTORY Diagnosis Date Asthma Heartburn Obesity Tobacco abuse I have confirmed and edited as necessary, the [facility] Review of Systems Constitutional: Negative for chills and fever. HENT: Positive for ear pain (drainage). Negative for congestion, sinus pain and sore throat. Respiratory: Negative for cough, sputum production, shortness of breath and wheezing. Cardiovascular: Negative for chest pain. Musculoskeletal: Negative for myalgias. Neurological: Negative for headaches. Objective Physical Exam Vitals and nursing note reviewed. HENT: Head: Normocephalic and atraumatic. Right Ear: Tympanic membrane, ear canal and external ear normal. Drainage and swelling present. Left Ear: Tympanic membrane, ear canal and external ear normal. Nose: No mucosal edema, congestion or rhinorrhea. Right Sinus: No maxillary sinus tenderness or frontal sinus tenderness. Left Sinus: No maxillary sinus tenderness or frontal sinus tenderness. Mouth/Throat: Pharynx: Uvula midline. No oropharyngeal exudate or posterior oropharyngeal erythema. Cardiovascular: Rate and Rhythm: Normal rate and regular rhythm. Heart sounds: Normal heart sounds. Pulmonary: Effort: Pulmonary effort is normal. Breath sounds: Normal breath sounds. Lymphadenopathy: Head: Right side of head: No submental, submandibular or tonsillar adenopathy. Left side of head: No submental, submandibular or tonsillar adenopathy. Cervical: No cervical adenopathy. Skin: General: Skin is warm and dry. Neurological: Mental Status: She is alert. Psychiatric: Mood and Affect: Affect normal. ASSESSMENT/PLAN: 1. Ear problem, right - ICD9: V41.3, ICD10: H93.91 Appears to be possible otitis externa Cortisporin solution Referral to ENT Diagnosis and treatment plan were discussed and questions were answered to the patient's satisfaction. Pt acknowledged understanding of concepts and follow up plan. Specific signs and symptoms that would indicate the need for higher level of care were discussed in detail warranting prompt ER evaluation. Dia Pelaez APRN.[facility] 11-13-2022 History of Presen t illness Narrative Subjective The history is provided by the patient. No foreign languages department chair was used. HPI Tana Queen is a 32 year old female who presents today for CC of right ear pain for 2 week, as well as external ear itching. She has used Augmentin 3 weeks ago for AOM, then using claritin and flonase. Still having itching and drainage in right ear. BP 122/80 Pulse 92 Temp 36.6 C (97.8 F) Resp 16 Wt (!) 152.9 kg (337 lb) LMP 09/11/2022 SpO2 97% BMI 56.08 kg/m Social History Tobacco Use Smoking status: Every Day Packs/day: 0.80 Years: 4.00 Pack years: 3.20 Types: Cigarettes Smokeless tobacco: Never Tobacco comments: cut to half a pack. Substance Use Topics Alcohol use: Yes Comment: 1 drink per week Drug use: No PAST MEDICAL HISTORY Diagnosis Date Asthma Heartburn Obesity Tobacco abuse I have confirmed and edited as necessary, the [facility] Review of Systems Constitutional: Negative for chills and fever. HENT: Positive for ear pain (drainage). Negative for congestion, sinus pain and sore throat. Respiratory: Negative for cough, sputum production, shortness of breath and wheezing. Cardiovascular: Negative for chest pain. Musculoskeletal: Negative for myalgias. Neurological: Negative for headaches. Objective Physical Exam Vitals and nursing note reviewed. HENT: Head: Normocephalic and atraumatic. Right Ear: Tympanic membrane, ear canal and external ear normal. Drainage and swelling present. Left Ear: Tympanic membrane, ear canal and external ear normal. Nose: No mucosal edema, congestion or rhinorrhea. Right Sinus: No maxillary sinus tenderness or frontal sinus tenderness. Left Sinus: No maxillary sinus tenderness or frontal sinus tenderness. Mouth/Throat: Pharynx: Uvula midline. No oropharyngeal exudate or posterior oropharyngeal erythema. Cardiovascular: Rate and Rhythm: Normal rate and regular rhythm. Heart sounds: Normal heart sounds. Pulmonary: Effort: Pulmonary effort is normal. Breath sounds: Normal breath sounds. Lymphadenopathy: Head: Right side of head: No submental, submandibular or tonsillar adenopathy. Left side of head: No submental, submandibular or tonsillar adenopathy. Cervical: No cervical adenopathy. Skin: General: Skin is warm and dry. Neurological: Mental Status: She is alert. Psychiatric: Mood and Affect: Affect normal. ASSESSMENT/PLAN: 1. Ear problem, right - ICD9: V41.3, ICD10: H93.91 Appears to be possible otitis externa Cortisporin solution Referral to ENT Diagnosis and treatment plan were discussed and questions were answered to the patient's satisfaction. Pt acknowledged understanding of concepts and follow up plan. Specific signs and symptoms that would indicate the need for higher level of care were discussed in detail warranting prompt ER evaluation. Dia Pelaez APRN.NIEVES documented in this encounter [facility] 10-16-2022 Note HNO ID: [id number] Author: GAB Clarke Service: ? Author Type: Physician Laborer [place] Type: Progress Notes Filed: 10/16/2022 9:32 AM Note Text: This note was created using WhiteSmoker[employer]. Subjective Tana Queen is a 32 year old female. HPI 4-year-old female presents for bilateral ear pain, nasal congestion. Patient states that she has had nasal congestion for weeks, attributes this to her allergies. She has been using Flonase. States that she has been having bilateral ear pain, worse on the right for the past 2 days. She was seen here a few weeks ago and diagnosed with eustachian tube dysfunction. She was given a course of prednisone. She states that helped a little bit, but she now has less pressure in her ears and more pain. She denies any drainage from the ears. She denies any cough, fevers. She has had recurrent ear infections in the past. PAST MEDICAL HISTORY Diagnosis Date Asthma Heartburn Obesity Tobacco abuse PAST SURGICAL HISTORY Procedure Laterality Date LAPS SURG CHOLECYSTECTOMY W/CHOLANGIOGRAPHY 08-17-14 ALLERGIES Acetaminophen, Doxycycline, and Hydrocodone MEDICATIONS albuterol HFA (VENTOLIN HFA) 90 mcg/actuation inhaler Inhale 2 Puffs as instructed every 4 hours as needed. omeprazole (PRILOSEC) 40 mg capsule Take 1 capsule by mouth once daily. loratadine (CLARITIN) 10 mg tablet Take 1 tablet by mouth once daily. fluticasone (FLONASE) 50 mcg/actuation nasal spray Use 2 Sprays in each nostril once daily. Rinse mouth after use. albuterol (PROVENTIL) 2.5 mg /3 mL (0.083 %) nebulizer solution Use 3 mL via nebulizer every 4 hours as needed for wheezing/shortness of breath. Use over 5-15minutes. montelukast (SINGULAIR) 10 mg tablet Take 1 tablet by mouth daily at bedtime. fluticasone (FLONASE) 50 mcg/actuation nasal spray Use 1 Warren in each nostril once daily. triamcinolone acetonide (KENALOG) 0.1 % cream Apply 1 application to affected area three times daily. Apply sparingly to area for rash/itching. amoxicillin-clavulanic acid (AUGMENTIN) 875-125 mg per tablet Take 1 tablet by mouth twice daily for 7 days. FAMILY HISTORY Problem Relation Age of Onset Heart Maternal Grandfather Enlarged heart, 1993 Cancer Maternal Grandfather Lung cancer, from Diabetes Maternal Grandfather Hypertension Mother Thyroid Mother Heart Paternal Grandfather other (Other) Father Raynaud's other (BPH) Father Ovarian cancer Maternal Aunt other (sudden ) Maternal Uncle Psychiatry Paternal Aunt bipolar, diability Psychiatry Paternal Aunt suicide Social History Tobacco Use Smoking status: Every Day Packs/day: 0.80 Years: 4.00 Pack years: 3.20 Types: Cigarettes Smokeless tobacco: Never Tobacco comments: cut to half a pack. Substance Use Topics Alcohol use: Yes Comment: 1 drink per week Drug use: No Review of Systems Constitutional: Negative for chills and fever. HENT: Positive for congestion and ear pain. Negative for sore throat. Respiratory: Negative for cough and shortness of breath. Cardiovascular: Negative for chest pain. Gastrointestinal: Negative for diarrhea and vomiting. Objective BP 122/78 Pulse 83 Temp 36.5 ?C (97.7 ?F) (Tympanic) Resp 18 Wt (!) 153 kg (337 lb 3.2 oz) LMP 09/11/2022 SpO2 96% BMI 56.11 kg/m? Physical Exam Vitals and nursing note reviewed. Constitutional: General: She is not in acute distress. Appearance: Normal appearance. She is not toxic-appearing. HENT: Right Ear: Ear canal normal. A middle ear effusion is present. Tympanic membrane is erythematous. Left Ear: Ear canal normal. A middle ear effusion is present. Nose: Congestion present. Mouth/Throat: Mouth: Mucous membranes are moist. Pharynx: No oropharyngeal exudate or posterior oropharyngeal erythema. Eyes: Conjunctiva/sclera: Conjunctivae normal. Cardiovascular: Rate and Rhythm: Normal rate and regular rhythm. Pulmonary: Effort: Pulmonary effort is normal. Breath sounds: Normal breath sounds. Neurological: Mental Status: She is alert. Assessment and Plan ASSESSMENT/PLAN: 1. Acute otitis media, right - ICD9: 382.9, ICD10: H66.91 (primary diagnosis) - Will begin treatment with Augmentin 875 mg PO BID for 7 days - Supportive care with plenty of fluids, rest, and analgesia prn. 2. Eustachian tube dysfunction, bilateral - ICD9: 381.81, ICD10: H69.83 - continue Flonase Diagnosis and treatment plan were discussed and questions were answered to the patient's satisfaction. Pt acknowledged understanding of concepts and follow up plan. Specific signs and symptoms that would indicate the need for higher level of care were discussed in detail warranting prompt ER evaluation. GAB Clarke [facility] 10-16-2022 History of Presen t illness Narrative This note was created using NoteWriter. Subjective Tana Queen is a 32 year old female. HPI 4-year-old female presents for bilateral ear pain, nasal congestion. Patient states that she has had nasal congestion for weeks, attributes this to her allergies. She has been using Flonase. States that she has been having bilateral ear pain, worse on the right for the past 2 days. She was seen here a few weeks ago and diagnosed with eustachian tube dysfunction. She was given a course of prednisone. She states that helped a little bit, but she now has less pressure in her ears and more pain. She denies any drainage from the ears. She denies any cough, fevers. She has had recurrent ear infections in the past. PAST MEDICAL HISTORY Diagnosis Date Asthma Heartburn Obesity Tobacco abuse PAST SURGICAL HISTORY Procedure Laterality Date LAPS SURG CHOLECYSTECTOMY W/CHOLANGIOGRAPHY 08-17-14 ALLERGIES Acetaminophen, Doxycycline, and Hydrocodone MEDICATIONS albuterol HFA (VENTOLIN HFA) 90 mcg/actuation inhaler Inhale 2 Puffs as instructed every 4 hours as needed. omeprazole (PRILOSEC) 40 mg capsule Take 1 capsule by mouth once daily. loratadine (CLARITIN) 10 mg tablet Take 1 tablet by mouth once daily. fluticasone (FLONASE) 50 mcg/actuation nasal spray Use 2 Sprays in each nostril once daily. Rinse mouth after use. albuterol (PROVENTIL) 2.5 mg /3 mL (0.083 %) nebulizer solution Use 3 mL via nebulizer every 4 hours as needed for wheezing/shortness of breath. Use over 5-15minutes. montelukast (SINGULAIR) 10 mg tablet Take 1 tablet by mouth daily at bedtime. fluticasone (FLONASE) 50 mcg/actuation nasal spray Use 1 Warren in each nostril once daily. triamcinolone acetonide (KENALOG) 0.1 % cream Apply 1 application to affected area three times daily. Apply sparingly to area for rash/itching. amoxicillin-clavulanic acid (AUGMENTIN) 875-125 mg per tablet Take 1 tablet by mouth twice daily for 7 days. FAMILY HISTORY Problem Relation Age of Onset Heart Maternal Grandfather Enlarged heart, 1992 Cancer Maternal Grandfather Lung cancer, from Diabetes Maternal Grandfather Hypertension Mother Thyroid Mother Heart Paternal Grandfather other (Other) Father Raynaud's other (BPH) Father Ovarian cancer Maternal Aunt other (sudden ) Maternal Uncle Psychiatry Paternal Aunt bipolar, diability Psychiatry Paternal Aunt suicide Social History Tobacco Use Smoking status: Every Day Packs/day: 0.80 Years: 4.00 Pack years: 3.20 Types: Cigarettes Smokeless tobacco: Never Tobacco comments: cut to half a pack. Substance Use Topics Alcohol use: Yes Comment: 1 drink per week Drug use: No Review of Systems Constitutional: Negative for chills and fever. HENT: Positive for congestion and ear pain. Negative for sore throat. Respiratory: Negative for cough and shortness of breath. Cardiovascular: Negative for chest pain. Gastrointestinal: Negative for diarrhea and vomiting. Objective BP 122/78 Pulse 83 Temp 36.5 C (97.7 F) (Tympanic) Resp 18 Wt (!) 153 kg (337 lb 3.2 oz) LMP 09/11/2022 SpO2 96% BMI 56.11 kg/m Physical Exam Vitals and nursing note reviewed. Constitutional: General: She is not in acute distress. Appearance: Normal appearance. She is not toxic-appearing. HENT: Right Ear: Ear canal normal. A middle ear effusion is present. Tympanic membrane is erythematous. Left Ear: Ear canal normal. A middle ear effusion is present. Nose: Congestion present. Mouth/Throat: Mouth: Mucous membranes are moist. Pharynx: No oropharyngeal exudate or posterior oropharyngeal erythema. Eyes: Conjunctiva/sclera: Conjunctivae normal. Cardiovascular: Rate and Rhythm: Normal rate and regular rhythm. Pulmonary: Effort: Pulmonary effort is normal. Breath sounds: Normal breath sounds. Neurological: Mental Status: She is alert. Assessment and Plan ASSESSMENT/PLAN: 1. Acute otitis media, right - ICD9: 382.9, ICD10: H66.91 (primary diagnosis) - Will begin treatment with Augmentin 875 mg PO BID for 7 days - Supportive care with plenty of fluids, rest, and analgesia prn. 2. Eustachian tube dysfunction, bilateral - ICD9: 381.81, ICD10: H69.83 - continue Flonase Diagnosis and treatment plan were discussed and questions were answered to the patient's satisfaction. Pt acknowledged understanding of concepts and follow up plan. Specific signs and symptoms that would indicate the need for higher level of care were discussed in detail warranting prompt ER evaluation. GAB Clarke documented in this encounter [facility] 09-20-2022 Note HNO ID: [id number] Author: Chester Kamara APRN.BLIND HANGER Service: ? Author Type: Nurse Practitioner Type: Progress Notes Filed: 09/20/2022 6:47 PM Note Text: Subjective HPI HPI Tana Queen is a 31 year old female who presents today for CC of righ ear pain, nasal congestion/allergies. This started 3 days ago. Has tried otc medication for relief. Symptoms are worsened by nothing known. Risk factors hx of seasonal allergies, smoker. Denies possibility of being . Has itchy rash on chest, reports gets this frequently/heat rash .Patient presents with: Ear Pain: Pt reported (RT) ear pain, x3 days. PAST MEDICAL HISTORY Diagnosis Date Asthma Heartburn Obesity Tobacco abuse PAST SURGICAL HISTORY Procedure Laterality Date LAPS SURG CHOLECYSTECTOMY W/CHOLANGIOGRAPHY 08-17-14 ALLERGIES Acetaminophen, Doxycycline, and Hydrocodone MEDICATIONS albuterol HFA (VENTOLIN HFA) 90 mcg/actuation inhaler Inhale 2 Puffs as instructed every 4 hours as needed. omeprazole (PRILOSEC) 40 mg capsule Take 1 capsule by mouth once daily. loratadine (CLARITIN) 10 mg tablet Take 1 tablet by mouth once daily. albuterol (PROVENTIL) 2.5 mg /3 mL (0.083 %) nebulizer solution Use 3 mL via nebulizer every 4 hours as needed for wheezing/shortness of breath. Use over 5-15minutes. montelukast (SINGULAIR) 10 mg tablet Take 1 tablet by mouth daily at bedtime. fluticasone (FLONASE) 50 mcg/actuation nasal spray Use 1 Warren in each nostril once daily. predniSONE (DELTASONE) 10 mg tablet Take 4 tabs daily for 3 days, then 2 tabs daily for 3 days, then 1 tab daily for 3 days with food. fluticasone (FLONASE) 50 mcg/actuation nasal spray Use 2 Sprays in each nostril once daily. Rinse mouth after use. triamcinolone acetonide (KENALOG) 0.1 % cream Apply 1 application to affected area three times daily. Apply sparingly to area for rash/itching. (Patient not taking: Reported on 07/10/2022) FAMILY HISTORY Problem Relation Age of Onset Heart Maternal Grandfather Enlarged heart, 1992 Cancer Maternal Grandfather Lung cancer, from Diabetes Maternal Grandfather Hypertension Mother Thyroid Mother Heart Paternal Grandfather other (Other) Father Raynaud's other (BPH) Father Ovarian cancer Maternal Aunt other (sudden ) Maternal Uncle Psychiatry Paternal Aunt bipolar, diability Psychiatry Paternal Aunt suicide Social History Tobacco Use Smoking status: Every Day Packs/day: 0.80 Years: 4.00 Pack years: 3.20 Types: Cigarettes Smokeless tobacco: Never Tobacco comments: cut to half a pack. Substance Use Topics Alcohol use: Yes Comment: 1 drink per week Drug use: No Review of Systems Constitutional: Negative for fever. HENT: Positive for congestion and ear pain. Negative for ear discharge, nosebleeds and sore throat. Respiratory: Negative for cough, shortness of breath and wheezing. Musculoskeletal: Negative for neck pain. Skin: Negative for itching and rash. Objective Physical Exam Constitutional: General: She is not in acute distress. Appearance: She is not toxic-appearing or diaphoretic. HENT: Head: Normocephalic and atraumatic. Right Ear: Hearing, ear canal and external ear normal. Tympanic membrane is bulging. Tympanic membrane is not perforated or erythematous. Left Ear: Hearing, ear canal and external ear normal. Tympanic membrane is bulging. Tympanic membrane is not perforated or erythematous. Nose: Nose normal. Mouth/Throat: Pharynx: Uvula midline. No pharyngeal swelling, oropharyngeal exudate, posterior oropharyngeal erythema or uvula swelling. Eyes: General: Lids are normal. No scleral icterus. Right eye: No discharge. Left eye: No discharge. Conjunctiva/sclera: Conjunctivae normal. Pupils: Pupils are equal, round, and reactive to light. Neck: Trachea: Trachea normal. Pulmonary: Effort: Pulmonary effort is normal. Musculoskeletal: Cervical back: Normal range of motion and neck supple. Lymphadenopathy: Cervical: No cervical adenopathy. Right cervical: No superficial cervical adenopathy. Left cervical: No superficial cervical adenopathy. Skin: Findings: No rash. Neurological: Mental Status: She is alert and oriented to person, place, and time. ASSESSMENT/PLAN: 1. ETD (Eustachian tube dysfunction), bilateral - ICD9: 381.81, ICD10: H69.83 (primary diagnosis) -use medication as prescribed -follow up if symptoms persist, worsen, change - PREDNISONE 10 MG TABLET - FLUTICASONE PROPIONATE 50 MCG/ACTUATION NASAL SPRAY,SUSPENSION 2. Seasonal allergic rhinitis due to other allergic trigger - ICD9: 477.8, ICD10: J30.89 -use medication as prescribed -follow up if symptoms persist, worsen, change - PREDNISONE 10 MG TABLET - FLUTICASONE PROPIONATE 50 MCG/ACTUATION NASAL SPRAY,SUSPENSION Chester Kamara APRN.BLIND HANGER [facility] 09-20-2022 History of Presen t illness Narrative Subjective HPI HPI Tana Queen is a 31 year old female who presents today for CC of righ ear pain, nasal congestion/allergies. This started 3 days ago. Has tried otc medication for relief. Symptoms are worsened by nothing known. Risk factors hx of seasonal allergies, smoker. Denies possibility of being . Has itchy rash on chest, reports gets this frequently/heat rash .Patient presents with: Ear Pain: Pt reported (RT) ear pain, x3 days. PAST MEDICAL HISTORY Diagnosis Date Asthma Heartburn Obesity Tobacco abuse PAST SURGICAL HISTORY Procedure Laterality Date LAPS SURG CHOLECYSTECTOMY W/CHOLANGIOGRAPHY 08-17-14 ALLERGIES Acetaminophen, Doxycycline, and Hydrocodone MEDICATIONS albuterol HFA (VENTOLIN HFA) 90 mcg/actuation inhaler Inhale 2 Puffs as instructed every 4 hours as needed. omeprazole (PRILOSEC) 40 mg capsule Take 1 capsule by mouth once daily. loratadine (CLARITIN) 10 mg tablet Take 1 tablet by mouth once daily. albuterol (PROVENTIL) 2.5 mg /3 mL (0.083 %) nebulizer solution Use 3 mL via nebulizer every 4 hours as needed for wheezing/shortness of breath. Use over 5-15minutes. montelukast (SINGULAIR) 10 mg tablet Take 1 tablet by mouth daily at bedtime. fluticasone (FLONASE) 50 mcg/actuation nasal spray Use 1 Warren in each nostril once daily. predniSONE (DELTASONE) 10 mg tablet Take 4 tabs daily for 3 days, then 2 tabs daily for 3 days, then 1 tab daily for 3 days with food. fluticasone (FLONASE) 50 mcg/actuation nasal spray Use 2 Sprays in each nostril once daily. Rinse mouth after use. triamcinolone acetonide (KENALOG) 0.1 % cream Apply 1 application to affected area three times daily. Apply sparingly to area for rash/itching. (Patient not taking: Reported on 07/10/2022) FAMILY HISTORY Problem Relation Age of Onset Heart Maternal Grandfather Enlarged heart, 1993 Cancer Maternal Grandfather Lung cancer, from Diabetes Maternal Grandfather Hypertension Mother Thyroid Mother Heart Paternal Grandfather other (Other) Father Raynaud's other (BPH) Father Ovarian cancer Maternal Aunt other (sudden ) Maternal Uncle Psychiatry Paternal Aunt bipolar, diability Psychiatry Paternal Aunt suicide Social History Tobacco Use Smoking status: Every Day Packs/day: 0.80 Years: 4.00 Pack years: 3.20 Types: Cigarettes Smokeless tobacco: Never Tobacco comments: cut to half a pack. Substance Use Topics Alcohol use: Yes Comment: 1 drink per week Drug use: No Review of Systems Constitutional: Negative for fever. HENT: Positive for congestion and ear pain. Negative for ear discharge, nosebleeds and sore throat. Respiratory: Negative for cough, shortness of breath and wheezing. Musculoskeletal: Negative for neck pain. Skin: Negative for itching and rash. Objective Physical Exam Constitutional: General: She is not in acute distress. Appearance: She is not toxic-appearing or diaphoretic. HENT: Head: Normocephalic and atraumatic. Right Ear: Hearing, ear canal and external ear normal. Tympanic membrane is bulging. Tympanic membrane is not perforated or erythematous. Left Ear: Hearing, ear canal and external ear normal. Tympanic membrane is bulging. Tympanic membrane is not perforated or erythematous. Nose: Nose normal. Mouth/Throat: Pharynx: Uvula midline. No pharyngeal swelling, oropharyngeal exudate, posterior oropharyngeal erythema or uvula swelling. Eyes: General: Lids are normal. No scleral icterus. Right eye: No discharge. Left eye: No discharge. Conjunctiva/sclera: Conjunctivae normal. Pupils: Pupils are equal, round, and reactive to light. Neck: Trachea: Trachea normal. Pulmonary: Effort: Pulmonary effort is normal. Musculoskeletal: Cervical back: Normal range of motion and neck supple. Lymphadenopathy: Cervical: No cervical adenopathy. Right cervical: No superficial cervical adenopathy. Left cervical: No superficial cervical adenopathy. Skin: Findings: No rash. Neurological: Mental Status: She is alert and oriented to person, place, and time. ASSESSMENT/PLAN: 1. ETD (Eustachian tube dysfunction), bilateral - ICD9: 381.81, ICD10: H69.83 (primary diagnosis) -use medication as prescribed -follow up if symptoms persist, worsen, change - PREDNISONE 10 MG TABLET - FLUTICASONE PROPIONATE 50 MCG/ACTUATION NASAL SPRAY,SUSPENSION 2. Seasonal allergic rhinitis due to other allergic trigger - ICD9: 477.8, ICD10: J30.89 -use medication as prescribed -follow up if symptoms persist, worsen, change - PREDNISONE 10 MG TABLET - FLUTICASONE PROPIONATE 50 MCG/ACTUATION NASAL SPRAY,SUSPENSION Chester Kamara APRN.[employer] documented in this encounter [facility] 07-10-2022 Note HNO ID: [id number] Author: Chester Kamara APRN.NIEVES Service: ? Author Type: Nurse Practitioner Type: Progress Notes Filed: 07/10/2022 2:27 PM Note Text: Subjective HPI HPI Tana Queen is a 31 year old female who presents today for CC of right ear pain, left ear plugged. This started 2 days ago. Has tried nothing for relief. Symptoms are worsened by nothing. Risk factors hx of wax problems in ears. .Patient presents with: Ear Pain: Right ear pain and ears feel clogged x 2 days PAST MEDICAL HISTORY Diagnosis Date Asthma Heartburn Obesity Tobacco abuse PAST SURGICAL HISTORY Procedure Laterality Date LAPS SURG CHOLECYSTECTOMY W/CHOLANGIOGRAPHY 08-17-14 ALLERGIES Doxycycline MEDICATIONS albuterol HFA (VENTOLIN HFA) 90 mcg/actuation inhaler Inhale 2 Puffs as instructed every 4 hours as needed. omeprazole (PRILOSEC) 40 mg capsule Take 1 capsule by mouth once daily. loratadine (CLARITIN) 10 mg tablet Take 1 tablet by mouth once daily. albuterol (PROVENTIL) 2.5 mg /3 mL (0.083 %) nebulizer solution Use 3 mL via nebulizer every 4 hours as needed for wheezing/shortness of breath. Use over 5-15minutes. fluticasone (FLONASE) 50 mcg/actuation nasal spray Use 1 Warren in each nostril once daily. ofloxacin (FLOXIN) 0.3 % otic solution Use 10 Drops in the right ear once daily for 7 days. montelukast (SINGULAIR) 10 mg tablet Take 1 tablet by mouth daily at bedtime. (Patient not taking: Reported on 07/10/2022) triamcinolone acetonide (KENALOG) 0.1 % cream Apply 1 application to affected area three times daily. Apply sparingly to area for rash/itching. (Patient not taking: Reported on 07/10/2022) FAMILY HISTORY Problem Relation Age of Onset Heart Maternal Grandfather Enlarged heart, 1993 Cancer Maternal Grandfather Lung cancer, from Diabetes Maternal Grandfather Hypertension Mother Thyroid Mother Heart Paternal Grandfather other (Other) Father Raynaud's other (BPH) Father Ovarian cancer Maternal Aunt other (sudden ) Maternal Uncle Psychiatry Paternal Aunt bipolar, diability Psychiatry Paternal Aunt suicide Social History Tobacco Use Smoking status: Every Day Packs/day: 0.80 Years: 4.00 Pack years: 3.20 Types: Cigarettes Smokeless tobacco: Never Tobacco comments: cut to half a pack. Substance Use Topics Alcohol use: Yes Comment: 1 drink per week Drug use: No Review of Systems Constitutional: Negative for fever. HENT: Positive for congestion, ear pain and hearing loss. Negative for ear discharge, nosebleeds and sore throat. Respiratory: Negative for cough, shortness of breath and wheezing. Musculoskeletal: Negative for neck pain. Skin: Negative for itching and rash. Objective Blood pressure 128/80, pulse 88, temperature 37.2 ?C (98.9 ?F), temperature source Tympanic, resp. rate 16, weight (!) 149.7 kg (330 lb), last menstrual period 01/12/2018, SpO2 97 %. Physical Exam Constitutional: General: She is not in acute distress. Appearance: She is not toxic-appearing or diaphoretic. HENT: Head: Normocephalic and atraumatic. Right Ear: Drainage, swelling and tenderness present. Tympanic membrane is not perforated, erythematous or bulging. Left Ear: Hearing and external ear normal. Ears: Comments: Initially unable to see left canal d/t cerumen impaction. Procedure: Nurse and lavage After lavage left ear clear and TM normal. Pulmonary: Effort: Pulmonary effort is normal. No accessory muscle usage or respiratory distress. Lymphadenopathy: Cervical: No cervical adenopathy. Right cervical: No superficial cervical adenopathy. Left cervical: No superficial cervical adenopathy. Neurological: Mental Status: She is alert and oriented to person, place, and time. ASSESSMENT/PLAN: 1. Acute otitis externa of right ear, unspecified type - ICD9: 380.10, ICD10: H60.501 (primary diagnosis) -education material provided -use medication as prescribed -f/u if no better in 3-5 days -discussed proper ear hygiene -discussed prevention - OFLOXACIN 0.3 % EAR DROPS 2. Impacted cerumen of left ear - ICD9: 380.4, ICD10: H61.22 Successful lavage by nurse Discussed proper ear hygiene. F/u for continued s/s. - AMBULATORY EAR LAVAGE/IRRIGATION Chester Kamara APRN.[facility] 07-10-2022 History of Presen t illness Narrative Subjective HPI HPI Tana Queen is a 31 year old female who presents today for CC of right ear pain, left ear plugged. This started 2 days ago. Has tried nothing for relief. Symptoms are worsened by nothing. Risk factors hx of wax problems in ears. .Patient presents with: Ear Pain: Right ear pain and ears feel clogged x 2 days PAST MEDICAL HISTORY Diagnosis Date Asthma Heartburn Obesity Tobacco abuse PAST SURGICAL HISTORY Procedure Laterality Date LAPS SURG CHOLECYSTECTOMY W/CHOLANGIOGRAPHY 08-17-14 ALLERGIES Doxycycline MEDICATIONS albuterol HFA (VENTOLIN HFA) 90 mcg/actuation inhaler Inhale 2 Puffs as instructed every 4 hours as needed. omeprazole (PRILOSEC) 40 mg capsule Take 1 capsule by mouth once daily. loratadine (CLARITIN) 10 mg tablet Take 1 tablet by mouth once daily. albuterol (PROVENTIL) 2.5 mg /3 mL (0.083 %) nebulizer solution Use 3 mL via nebulizer every 4 hours as needed for wheezing/shortness of breath. Use over 5-15minutes. fluticasone (FLONASE) 50 mcg/actuation nasal spray Use 1 Warren in each nostril once daily. ofloxacin (FLOXIN) 0.3 % otic solution Use 10 Drops in the right ear once daily for 7 days. montelukast (SINGULAIR) 10 mg tablet Take 1 tablet by mouth daily at bedtime. (Patient not taking: Reported on 07/10/2022) triamcinolone acetonide (KENALOG) 0.1 % cream Apply 1 application to affected area three times daily. Apply sparingly to area for rash/itching. (Patient not taking: Reported on 07/10/2022) FAMILY HISTORY Problem Relation Age of Onset Heart Maternal Grandfather Enlarged heart, 1993 Cancer Maternal Grandfather Lung cancer, from Diabetes Maternal Grandfather Hypertension Mother Thyroid Mother Heart Paternal Grandfather other (Other) Father Raynaud's other (BPH) Father Ovarian cancer Maternal Aunt other (sudden ) Maternal Uncle Psychiatry Paternal Aunt bipolar, diability Psychiatry Paternal Aunt suicide Social History Tobacco Use Smoking status: Every Day Packs/day: 0.80 Years: 4.00 Pack years: 3.20 Types: Cigarettes Smokeless tobacco: Never Tobacco comments: cut to half a pack. Substance Use Topics Alcohol use: Yes Comment: 1 drink per week Drug use: No Review of Systems Constitutional: Negative for fever. HENT: Positive for congestion, ear pain and hearing loss. Negative for ear discharge, nosebleeds and sore throat. Respiratory: Negative for cough, shortness of breath and wheezing. Musculoskeletal: Negative for neck pain. Skin: Negative for itching and rash. Objective Blood pressure 128/80, pulse 88, temperature 37.2 C (98.9 F), temperature source Tympanic, resp. rate 16, weight (!) 149.7 kg (330 lb), last menstrual period 01/12/2018, SpO2 97 %. Physical Exam Constitutional: General: She is not in acute distress. Appearance: She is not toxic-appearing or diaphoretic. HENT: Head: Normocephalic and atraumatic. Right Ear: Drainage, swelling and tenderness present. Tympanic membrane is not perforated, erythematous or bulging. Left Ear: Hearing and external ear normal. Ears: Comments: Initially unable to see left canal d/t cerumen impaction. Procedure: Nurse and lavage After lavage left ear clear and TM normal. Pulmonary: Effort: Pulmonary effort is normal. No accessory muscle usage or respiratory distress. Lymphadenopathy: Cervical: No cervical adenopathy. Right cervical: No superficial cervical adenopathy. Left cervical: No superficial cervical adenopathy. Neurological: Mental Status: She is alert and oriented to person, place, and time. ASSESSMENT/PLAN: 1. Acute otitis externa of right ear, unspecified type - ICD9: 380.10, ICD10: H60.501 (primary diagnosis) -education material provided -use medication as prescribed -f/u if no better in 3-5 days -discussed proper ear hygiene -discussed prevention - OFLOXACIN 0.3 % EAR DROPS 2. Impacted cerumen of left ear - ICD9: 380.4, ICD10: H61.22 Successful lavage by nurse Discussed proper ear hygiene. F/u for continued s/s. - AMBULATORY EAR LAVAGE/IRRIGATION Chester Kamara APRN.NEIVES documented in this encounter [facility] 07-10-2022 Nurse Note Ambulatory Ear Lavage Pre-treatment: Warm water Treatment: Left ear Equipment and Irrigation solution and Volume used: Single use syringe with single use irrigation tip Water Return flow appearance: Debris Patient tolerated procedure: yes Post-treatment: Post Irrigation Post-treatment: Ear Canal/Tympanic membrane assessed by LIP Chester Kamara documented in this encounter [facility] 02-08-2022 Instructions M Tk Ayers PA-C - 02/08/2022 9:07 AM EDT Montelukast (Patient Education - Adult Medication) You must carefully read the Consumer Information Use and Disclaimer below in order to understand and correctly use this information Pronunciation (shireen Clark kasmony) Brand Names: USSingulair Brand Names: [place]-Montelukast [DSC]; AG-Montelukast; APO-Montelukast; Auro-Montelukast; BIO-Montelukast; DOM-Montelukast; DOM-Montelukast FC; JAMP-Montelukast; M-Montelukast; Mar-Montelukast; MINT-Montelukast; MYLAN-Montelukast [DSC]; NRA-Montelukast; PMS-Montelukast; PRIVA-Montelukast FC; RAN-Montelukast; MELYSSA-Montelukast FC; SANDOZ Montelukast; Singulair; TEVA-Montelukast What is this drug used for? It is used to prevent breathing problems that happen with exercise. It is used to treat or prevent asthma. It is used to ease allergy signs. It may be given to you for other reasons. Talk with the doctor. For allergic reasons: This drug must only be used when other drugs cannot be used or have not worked. Talk with your doctor to be sure that the benefits of this drug are more than the risks. For breathing problems: This drug is not to be used to treat intense flare-ups of shortness of breath. Use a rescue inhaler. Talk with the doctor. What do I need to tell my doctor BEFORE I take this drug? If you are allergic to this drug; any part of this drug; or any other drugs, foods, or substances. Tell your doctor about the allergy and what signs you had. This drug may interact with other drugs or health problems. Tell your doctor and pharmacist about all of your drugs (prescription or OTC, natural products, vitamins) and health problems. You must check to make sure that it is safe for you to take this drug with all of your drugs and health problems. Do not start, stop, or change the dose of any drug without checking with your doctor. What are some things I need to know or do while I take this drug? For all uses of this drug: Tell all of your health care providers that you take this drug. This includes your doctors, nurses, pharmacists, and dentists. If you have phenylketonuria (PKU), talk with your doctor. Some products have phenylalanine. Tell your doctor if you are , plan on getting , or are breast-feeding. You will need to talk about the benefits and risks to you and the baby. For breathing problems: Call your doctor right away if your breathing problems get worse, if your rescue inhaler does not work as well, or if you need to use your rescue inhaler more often. If you take this drug for asthma or allergy, do not take another dose to prevent breathing problems that happen with exercise. If you have asthma and taking aspirin makes it worse, keep avoiding aspirin and NSAIDs while you take this drug. If you are switching to this drug from a steroid, do not stop taking the steroid all of a sudden. The dose of the steroid may need to be slowly lowered to avoid side effects. Talk with the doctor. What are some side effects that I need to call my doctor about right away? WARNING/CAUTION: Even though it may be rare, some people may have very bad and sometimes deadly side effects when taking a drug. Tell your doctor or get medical help right away if you have any of the following signs or symptoms that may be related to a very bad side effect: For all patients taking this drug: Signs of an allergic reaction, like rash; hives; itching; red, swollen, blistered, or peeling skin with or without fever; wheezing; tightness in the chest or throat; trouble breathing, swallowing, or talking; unusual hoarseness; or swelling of the mouth, face, lips, tongue, or throat. Signs of liver problems like dark urine, feeling tired, not hungry, upset stomach or stomach pain, light-colored stools, throwing up, or yellow skin or eyes. Signs of a pancreas problem (pancreatitis) like very bad stomach pain, very bad back pain, or very bad upset stomach or throwing up. Signs or symptoms of depression, suicidal thoughts, emotional ups and downs, abnormal thinking, anxiety, or lack of interest in life. Signs of a very bad skin reaction (Monk-Elias syndrome/toxic epidermal necrolysis) like red, swollen, blistered, or peeling skin (with or without fever); red or irritated eyes; or sores in the mouth, throat, nose, or eyes. Hallucinations (seeing or hearing things that are not there). Memory problems or loss. Feeling confused, not able to focus, or change in behavior. Strange or odd dreams. Trouble sleeping. Trouble speaking. Restlessness. Sleepwalking. Shakiness. Trouble controlling body movements. Seizures. Trouble breathing that is new or worse. Fever. Flu-like signs. Sinus pain. Chest pain. A heartbeat that does not feel normal. Any unexplained bruising or bleeding. A burning, numbness, or tingling feeling that is not normal. Ear pain. Muscle or joint pain. Swelling. Children: Bedwetting. What are some other side effects of this drug? All drugs may cause side effects. However, many people have no side effects or only have minor side effects. Call your doctor or get medical help if any of these side effects or any other side effects bother you or do not go away: Headache. Stomach pain or diarrhea. Signs of a common cold. Cough. These are not all of the side effects that may occur. If you have questions about side effects, call your doctor. Call your doctor for medical advice about side effects. You may report side effects to your national health agency. How is this drug best taken? Use this drug as ordered by your doctor. Read all information given to you. Follow all instructions closely. All products: Take with or without food. Keep taking this drug even when you are not having symptoms. If working out or playing sports causes signs, use at least 2 hours before doing it. If this drug is for asthma, take in the evening. Chewable tablet: Chew well before swallowing. Granules: Granules may be placed right in the mouth or mixed with cold or room temperature applesauce, baby formula, breast milk, mashed carrots, rice, or ice cream. Do not mix granules in other liquids. Do not open the packet until you are ready to take a dose. If mixing, take your dose within 15 minutes. Do not store for future use. What do I do if I miss a dose? Skip the missed dose and go back to your normal time. Do not take 2 doses at the same time or extra doses. How do I store and/or throw out this drug? Store at room temperature protected from light. Store in a dry place. Do not store in a bathroom. Store in original container. Keep all drugs in a safe place. Keep all drugs out of the reach of children and pets. Throw away unused or drugs. Do not flush down a toilet or pour down a drain unless you are told to do so. Check with your pharmacist if you have questions about the best way to throw out drugs. There may be drug take-back programs in your area. General drug facts If your symptoms or health problems do not get better or if they become worse, call your doctor. Do not share your drugs with others and do not take anyone else's drugs. Some drugs may have another patient information leaflet. If you have any questions about this drug, please talk with your doctor, nurse, pharmacist, or other health care provider. If you think there has been an overdose, call your poison control center or get medical care right away. Be ready to tell or show what was taken, how much, and when it happened. Last Reviewed Date 2019-07-16 To open eustachian tube: Take Ibuprofen 800mg every 6 hours to reduce inflammation. Try Afrin nasal spray or a similar nasal spray decongestant over the counter just on the side that is clogged. Just be careful to follow the directions. Hold the bottle upright, do not tilt you head back. Use the least amount necessary, and only for a few days at most due to potential for rebound side effects. Try popping your ears by pinching your nose, holding you lips closed and swallowing. If this doesn't work pinch the opposite side of your nose close, gently blow against pressure as you then close the affected nostril and try to ana open the tube. Do not blow forcefully as this can damage your ear drum. Yawning, chewing gum, or blowing up balloons might also help them pop open. If that doesn't help, you may try Sudafed 12h behind the counter(you have to sign this out) as directed. If the ear fails to open over 4-6 weeks, we can refer to ENT a possible ear tube. If symptoms fail to improve in 5-7 days, or worsen, call the office: [phone]. documented in this encounter [facility] 02-08-2022 History of Presen t illness Narrative 31 year old female with c/o mediction follow up No current concerns Personal Clothing Laundry Aide: no. Interval history: Initially on Breo worked really well, about 4 months in stopped working as well and had to use rescue more often. Current medications: Albuterol MDI 2 puffs every 4 hours as needed Breo Ellipta 100-25 MCG 1 inhalation daily: Not taking. Fluticasone 50 MCG nasal inhaler 2 sprays each nostril daily when she remembers, usually a couple time a week. Overlap 13 0.2% drop 1 drop each eye daily Claritin 10 mg daily Worsening shortness of breath: Yes in spring and fall Cough: Yes. Over last 3 weeks following URI Wheezing: Yes. Smokinppd or less. Compliant with medications: Yes. Using rescue inhaler: morning and evening every day, september 3 additional through the day. Has a dog. Has known allergy to dogs, cats, and horses. Current medication: Omeprazole 40 mg daily AC takes if eats something bad (once every two weeks) Current symptoms: none. Last Mg level if on PPI chronically: n/a. Heartburn is controlled: Yes. Dysphagia: No. Bloody or black stools: No. Bowel changes: No. Last EGD and/or colonoscopy: none. 2 weeks ago Kidney stone [facility] ED Unsure if passed HISTORIES FAMILY HISTORY Problem Relation Age of Onset Heart Maternal Grandfather Enlarged heart, 1992 Cancer Maternal Grandfather Lung cancer, from Diabetes Maternal Grandfather Hypertension Mother Thyroid Mother Heart Paternal Grandfather other (Other) Father Raynaud's other (BPH) Father Ovarian cancer Maternal Aunt other (sudden ) Maternal Uncle Psychiatry Paternal Aunt bipolar, diability Psychiatry Paternal Aunt suicide PAST MEDICAL HISTORY Diagnosis Date Asthma Heartburn Obesity Tobacco abuse PAST SURGICAL HISTORY Procedure Laterality Date LAPS SURG CHOLECYSTECTOMY W/CHOLANGIOGRAPHY 08-17-14 Social History Tobacco Use Smoking status: Every Day Packs/day: 0.80 Years: 4.00 Pack years: 3.20 Types: Cigarettes Smokeless tobacco: Never Tobacco comments: cut to half a pack. Substance Use Topics Alcohol use: Yes Comment: 1 drink per week Drug use: No ACTIVE PROBLEM LIST Pain in Joint, Shoulder Region Asthma, Mild Persistent Ibs (Irritable Bowel Syndrome) Tobacco Abuse Morbid Obesity With Bmi of 50.0-59.9, Adult (Hcc) Gerd Without Esophagitis Current Outpatient Medications Medication Sig Dispense Refill albuterol HFA (VENTOLIN HFA) 90 mcg/actuation inhaler Inhale 2 Puffs as instructed every 4 hours as needed. 18 g 0 omeprazole (PRILOSEC) 40 mg capsule Take 1 capsule by mouth once daily. 30 capsule 5 loratadine (CLARITIN) 10 mg tablet Take 1 tablet by mouth once daily. 30 tablet 5 fluticasone (FLONASE ALLERGY RELIEF) 50 mcg/actuation nasal spray Use 1 Warren in each nostril once daily. triamcinolone acetonide (KENALOG) 0.1 % cream Apply 1 application to affected area three times daily. Apply sparingly to area for rash/itching. 30 g 0 Olopatadine (PATADAY ONCE DAILY RELIEF) 0.2 % drop Use 1 Drop in both eyes once daily. (Patient not taking: Reported on 10/22/2021 ) 1 Bottle 0 fluticasone-vilanterol (BREO ELLIPTA) 100-25 mcg/dose inhaler Inhale 1 Inhalation as instructed once daily. (Patient not taking: Reported on 10/25/2020 ) 1 Each 5 triamcinolone acetonide (NASACORT) 55 mcg nasal inhaler Use 2 Sprays in the nose once daily. (Patient not taking: Reported on 10/25/2020 ) 1 Inhaler 0 No current facility-administered medications for this visit. COVID-19 VACCINE(1) Never done PNEUMOCOCCAL(1 - PCV) Never done SPIROMETRY Never done HEPATITIS C SCREENING Never done HIV SCREENING Never done DTAP,TDAP,TD(7 - Td or Tdap) due on 10/27/2018 PAP TESTING due on 02/14/2019 ANNUAL PCP TEAM CHRONIC DISEASE VISIT due on 01/01/2020 DEPRESSION ASSESSMENT Never done INFLUENZA(1) due on 01/10/2022 EXAM: BP 142/80 Pulse 96 Resp 18 Wt (!) 154.7 kg (341 lb) LMP 01/12/2018 SpO2 97% BMI 56.75 kg/m Pleasant overweight adult woman in no acute distress. Alert and oriented all spheres. Normal affect and cognition. Speech normal. No deficits to learning or comprehension. Skin warm, dry, pink to lips and nailbeds. Normal turgor. Respirations regular and unlabored. Chest is normal shape. Lungs are clear to all steel with good air exchange through out. HRRR without murmur or gallop. No lifts, heaves, or rubs. Extrem: no clubbing or cyanosis. Edema: none. Extremities are warm and pink with prompt capillary refill. ASSESSMENT/PLAN: 1. Mod persistent asthma without complication - ICD9: 493.90, ICD10: J45.30 Moderate persistent Asthma acute excacerbation without status Cost of meds prohibitive. Notes albuterol aerosol helps better Trial Singulair Consider Combivent or LABA - Avoidance of triggers recommended - ALBUTEROL SULFATE HFA 90 MCG/ACTUATION AEROSOL INHALER - MONTELUKAST 10 MG TABLET 2. Mod persistent asthma without complication - ICD9: 493.90, ICD10: J45.30 Moderate persistent Asthma worse - Continue current meds - Begin Singulair 10 mg daily - Avoidance of triggers recommended - educated on new medication - ALBUTEROL SULFATE HFA 90 MCG/ACTUATION AEROSOL INHALER - ALBUTEROL SULFATE 2.5 MG/3 ML (0.083 %) SOLUTION FOR NEBULIZATION - MONTELUKAST 10 MG TABLET 3. Heartburn - ICD9: 787.1, ICD10: R12 Might try routinely to see if reduces asthma - OMEPRAZOLE 40 MG CAPSULE,DELAYED RELEASE 4. Epigastric pain - ICD9: 789.06, ICD10: R10.13 Continue current medicatoin - OMEPRAZOLE 40 MG CAPSULE,DELAYED RELEASE 5. Seasonal allergies - ICD9: 477.9, ICD10: J30.2 Discused multiple options. Might benefit from desensitization. - LORATADINE 10 MG TABLET - CONSULT TO ALLERGY/IMMUNOLOGY 6. Super obesity - ICD9: 278.00, ICD10: E66.9 Stable - Behavioral intervention Gets little response to exercise, diet Discussed weight loss medication, diets as not [facility] solution. Discussed bariatric consult: she will let me know. Chantal Ayers PA-C documented in this encounter [facility] 01-18-2022 Emergency department Note Pain and nausea are better per patient. Pt given filter and instructed on use. Voices understanding. Patient alert and oriented x 4. Pt given discharge instructions, prescriptions, and follow up care. Pt verbalize understanding. Pt denies any questions at this time. Pt ambulatory with steady gait at discharge. Pt left with all belongings. Pt family/friend taking patient home. [facility] 01-18-2022 Emergency department Note Pain and nausea are better per patient. Pt given filter and instructed on use. Voices understanding. Patient alert and oriented x 4. Pt given discharge instructions, prescriptions, and follow up care. Pt verbalize understanding. Pt denies any questions at this time. Pt ambulatory with steady gait at discharge. Pt left with all belongings. Pt family/friend taking patient home. Pt medicated for increased pain 7/10 per orders. Pt and family updated on POC. Nausea is better. Will continue to monitor. Pt medicated for vomiting. Pt reporting increased pain but I don't want anything that will make me loopy. Dr. Ribeiro notified. RN in to discharge patient, but pt vomiting. Dr. Ribeiro notified. Family at bedside. Pt reports intermittent right lower back pains as well as intermittent nausea. Family at bedside. Pt updated on POC, denies needs. Pt lying on right side for comfort. Will continue to monitor. Pt c/o right flank pain that radiates to her groin that began this morning. Denies n/v/d. documented in this encounter [facility] 01-18-2022 Emergency department Note Pt medicated for increased pain 7/10 per orders. Pt and family updated on POC. Nausea is better. Will continue to monitor. [facility] 01-18-2022 Emergency department Note Pt medicated for vomiting. Pt reporting increased pain but I don't want anything that will make me loopy. Dr. Ribeiro notified. [facility] 01-18-2022 Emergency department Note RN in to discharge patient, but pt vomiting. Dr. Ribeiro notified. [facility] 01-18-2022 Hospital Discharg e instructions Rosalinda Ribeiro DO - 01/18/2022 4:23 PM EDT Strain urine for 3-4 days. The following attachments cannot be sent through Care Everywhere.Kidney Stone ([place])documented in this encounter [facility] 01-18-2022 Emergency department Note Family at bedside. Pt reports intermittent right lower back pains as well as intermittent nausea. Family at bedside. Pt updated on POC, denies needs. Pt lying on right side for comfort. Will continue to monitor. [facility] 01-18-2022 Emergency department Note Pt c/o right flank pain that radiates to her groin that began this morning. Denies n/v/d. [facility] 01-08-2022 Miscellaneous Notes Patient read message. Appointment not scheduled. Sindi Justice LPN Patient phones requesting refills as follows: Requested Prescriptions Pending Prescriptions Disp Refills omeprazole (PRILOSEC) 40 mg capsule 30 capsule 5 Sig: Take 1 capsule by mouth once daily. loratadine (CLARITIN) 10 mg tablet 30 tablet 5 Sig: Take 1 tablet by mouth once daily. [facility] 12/31/18 NOV no upcoming appt *Pt has not been seen in 3 yrs. Needs 40 min appt. MC message to pt advising of the same. Kyler Ribeiro LPN documented in this encounter [facility] 01-07-2022 Miscellaneous Notes Patient phones requesting refills as follows: Requested Prescriptions Pending Prescriptions Disp Refills albuterol HFA (VENTOLIN HFA) 90 mcg/actuation inhaler 18 g 0 Sig: Inhale 2 Puffs as instructed every 4 hours as needed. [facility] 12/31/18 NOV no upcoming appt. *Pt has not been seen in 3 yrs. Needs 40 min appt. MC message to pt advising of the same. Please review and advise. Kyler Ribeiro LPN documented in this encounter [facility] 12-21-2021 Miscellaneous Notes Patient phones requesting refills as follows: Requested Prescriptions Pending Prescriptions Disp Refills albuterol HFA (VENTOLIN HFA) 90 mcg/actuation inhaler 18 g 0 Sig: Inhale 2 Puffs as instructed every 4 hours as needed. POPPY-12/31/18 Labs-11/15/20 NOV-none med filled 11/07/21 Please review and advise. Luma Hanna LPN documented in this encounter [facility] 10-22-2021 Instructions Tiago Sam APRN.BLIND HANGER - 10/22/2021 8:09 AM EDT OTITIS MEDIA GENERAL INFORMATION: Otitis media is an infection of the middle ear. The middle ear sits behind the eardrum. This infection may be caused by a virus or bacteria and often follows a cold. Children often have repeat ear infections. Otitis media is not contagious. INSTRUCTIONS: 1. An antibiotic has been prescribed. It should be taken exactly as prescribed. Do not stop the medicine even if the symptoms go away. 2. Moku-wji-hascmmd pain medication may be taken or other pain medication as prescribed by the doctor. 3. Nothing should be placed in the ear unless instructed by your doctor. 4. The patient may return to school/daycare or work when the temperature is normal (98.6 F or 37 C). 5. The patient should not swim while the ear is infected. CONTACT YOUR DOCTOR IF YOU OR YOUR CHILD: 1. Does not feel better within 36 hours. 2. Develops a temperature over 102E F (39E C). 3. Starts vomiting or has diarrhea. 4. Develops drainage from the affected ear. 5. Has any new problem that may be related to the medicine prescribed. RETURN TO THE ED IF: 1. You or your child has a severe headache or pain around the ear. 2. You or your child notice swelling around the ear. 3. You or your child has a seizure (convulsion), twitching of the facial muscles, or passes out. 4. You or your child is dizzy, has a stiff neck, or cannot walk or talk normally. 5. Your child becomes more irritable or listless (not interested in his or her surroundings, does not get soothed by you holding him or her). documented in this encounter [facility] 10-22-2021 History of Presen t illness Narrative This note was created using [employer]. Subjective Tana Queen is a 31 year old female. 31 year old female with PMH acid reflux and asthma presents with complaints of ears clogged. Acute onset this past week, Bilateral, but right greater than left. States that right ear is painful. +reduced hearing. +drainage but I always have that Denies accompanying URI sx. Denies fever or chills. She states almost monthly she has ears irrigated. 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 The history is provided by the patient. No foreign languages department chair was used. Ear Problem There is pain in both ears. This is a recurrent problem. The current episode started in the past 7 days. The problem occurs constantly. The problem has been gradually worsening. There has been no fever. The pain is at a severity of 5/10. The pain is moderate. Associated symptoms include ear discharge and hearing loss. Pertinent negatives include no abdominal pain, coughing, diarrhea, headaches, neck pain, rash, rhinorrhea, sore throat or vomiting. She has tried nothing for the symptoms. The treatment provided no relief. There is no history of a chronic ear infection, hearing loss or a tympanostomy tube. PAST MEDICAL HISTORY Diagnosis Date Asthma Heartburn Obesity Tobacco abuse PAST SURGICAL HISTORY Procedure Laterality Date LAPS SURG CHOLECYSTECTOMY W/CHOLANGIOGRAPHY 08-17-14 ALLERGIES Doxycycline MEDICATIONS albuterol HFA (VENTOLIN HFA) 90 mcg/actuation inhaler Inhale 2 Puffs as instructed every 4 hours as needed. omeprazole (PRILOSEC) 40 mg capsule Take 1 capsule by mouth once daily. loratadine (CLARITIN) 10 mg tablet Take 1 tablet by mouth once daily. fluticasone (FLONASE ALLERGY RELIEF) 50 mcg/actuation nasal spray Use 1 Warren in each nostril once daily. triamcinolone acetonide (KENALOG) 0.1 % cream Apply 1 application to affected area three times daily. Apply sparingly to area for rash/itching. amoxicillin-clavulanic acid (AUGMENTIN) 875-125 mg per tablet Take 1 tablet by mouth twice daily for 7 days. Olopatadine (PATADAY ONCE DAILY RELIEF) 0.2 % drop Use 1 Drop in both eyes once daily. fluticasone-vilanterol (BREO ELLIPTA) 100-25 mcg/dose inhaler Inhale 1 Inhalation as instructed once daily. triamcinolone acetonide (NASACORT) 55 mcg nasal inhaler Use 2 Sprays in the nose once daily. FAMILY HISTORY Problem Relation Age of Onset Heart Maternal Grandfather Enlarged heart, 1993 Cancer Maternal Grandfather Lung cancer, from Diabetes Maternal Grandfather Hypertension Mother Thyroid Mother Heart Paternal Grandfather other (Other) Father Raynaud's other (BPH) Father Ovarian cancer Maternal Aunt other (sudden ) Maternal Uncle Psychiatry Paternal Aunt bipolar, diability Psychiatry Paternal Aunt suicide Social History Tobacco Use Smoking status: Current Every Day Smoker Packs/day: 0.80 Years: 4.00 Pack years: 3.20 Types: Cigarettes Smokeless tobacco: Never Used Tobacco comment: cut to half a pack. Substance Use Topics Alcohol use: Yes Comment: 1 drink per week Drug use: No Review of Systems Constitutional: Negative for activity change, appetite change, chills, diaphoresis, fatigue, fever and unexpected weight change. HENT: Positive for ear discharge, ear pain and hearing loss. Negative for congestion, rhinorrhea, sinus pressure, sinus pain, sneezing and sore throat. Eyes: Negative for photophobia, pain, discharge, redness, itching and visual disturbance. Respiratory: Negative for apnea, cough, choking and chest tightness. Cardiovascular: Negative for chest pain, palpitations and leg swelling. Gastrointestinal: Negative for abdominal pain, diarrhea and vomiting. Musculoskeletal: Negative for arthralgias, back pain, gait problem and neck pain. Skin: Negative for color change, pallor and rash. Allergic/Immunologic: Negative for environmental allergies, food allergies and immunocompromised state. Neurological: Negative for dizziness, facial asymmetry and headaches. Hematological: Negative for adenopathy. Does not bruise/bleed easily. Psychiatric/Behavioral: Negative for agitation and behavioral problems. Objective BP 124/82 Pulse 104 Temp 36.6 C (97.9 F) Resp 18 Wt (!) 161 kg (355 lb) LMP 01/12/2018 SpO2 98% BMI 59.08 kg/m Physical Exam Vitals and nursing note reviewed. Constitutional: General: She is not in acute distress. Appearance: Normal appearance. She is normal weight. She is not ill-appearing, toxic-appearing or diaphoretic. HENT: Head: Normocephalic and atraumatic. Right Ear: Ear canal and external ear normal. There is impacted cerumen. Left Ear: Ear canal and external ear normal. There is impacted cerumen. Ears: Comments: Bilateral EAC with impacted cerumen. After MA irrigates, patient endorses hearing returns to normal Right TM marked erythema. Nose: Nose normal. No congestion or rhinorrhea. Mouth/Throat: Mouth: Mucous membranes are moist. Pharynx: No oropharyngeal exudate or posterior oropharyngeal erythema. Eyes: General: Right eye: No discharge. Left eye: No discharge. Extraocular Movements: Extraocular movements intact. Conjunctiva/sclera: Conjunctivae normal. Pupils: Pupils are equal, round, and reactive to light. Cardiovascular: Rate and Rhythm: Normal rate and regular rhythm. Pulses: Normal pulses. Heart sounds: Normal heart sounds. No murmur heard. No friction rub. Pulmonary: Effort: Pulmonary effort is normal. No respiratory distress. Breath sounds: Normal breath sounds. No stridor. No wheezing, rhonchi or rales. Chest: Chest wall: No tenderness. Abdominal: General: Abdomen is flat. There is no distension. Palpations: Abdomen is soft. There is no mass. Tenderness: There is no abdominal tenderness. There is no right CVA tenderness, left CVA tenderness, guarding or rebound. Hernia: No hernia is present. Musculoskeletal: General: No swelling, tenderness, deformity or signs of injury. Normal range of motion. Cervical back: Normal range of motion and neck supple. No rigidity. Right lower leg: No edema. Left lower leg: No edema. Lymphadenopathy: Cervical: No cervical adenopathy. Skin: General: Skin is warm and dry. Coloration: Skin is not jaundiced or pale. Findings: No bruising, erythema, lesion or rash. Neurological: General: No focal deficit present. Mental Status: She is alert and oriented to person, place, and time. Cranial Nerves: No cranial nerve deficit. Sensory: No sensory deficit. Motor: No weakness. Coordination: Coordination normal. Gait: Gait normal. Psychiatric: Mood and Affect: Mood normal. Behavior: Behavior normal. Thought Content: Thought content normal. Judgment: Judgment normal. Assessment and Plan ASSESSMENT/PLAN: 1. Acute otitis media, right - ICD9: 382.9, ICD10: H66.91 (primary diagnosis) - Will begin treatment with as per antibiotic as written, see orders - The patient should also be given OTC analgesics for the first 5-7 days of treatment. - Supportive care with plenty of fluids, rest, and analgesia prn. - Follow up in 3-5 days if symptoms persist or worsen. 2. Hearing loss due to cerumen impaction, bilateral - ICD9: 389.8, 380.4, ICD10: H61.23 Bilateral EAC with impacted cerumen. After MA irrigates, patient endorses hearing returns to normal 3. Bilateral impacted cerumen - ICD9: 380.4, ICD10: H61.23 Bilateral EAC with impacted cerumen. After MA irrigates, patient endorses hearing returns to normal Tiago Sam APRN.NIEVES documented in this encounter [facility] documented as of this encounter (statuses as of 10/22/2021) [address] History of Past illness Narrative* Problem Noted Date Resolved Date Cholecystitis with cholelithiasis 07/19/2014 08/16/2016 documented as of this encounter (statuses as of 12/21/2021) [address] History of Past illness Narrative* Problem Noted Date Resolved Date Cholecystitis with cholelithiasis 07/19/2014 08/16/2016 documented as of this encounter (statuses as of 01/07/2022) [address] History of Past illness Narrative* Problem Noted Date Resolved Date Cholecystitis with cholelithiasis 07/19/2014 08/16/2016 documented as of this encounter (statuses as of 01/09/2022) [address] History of Past illness Narrative* Problem Noted Date Resolved Date Cholecystitis with cholelithiasis 07/19/2014 08/16/2016 documented as of this encounter (statuses as of 02/08/2022) [address] History of Past illness Narrative* Problem Noted Date Resolved Date Cholecystitis with cholelithiasis 07/19/2014 08/16/2016 documented as of this encounter (statuses as of 07/10/2022) [address] History of Past illness Narrative* Problem Noted Date Resolved Date Cholecystitis with cholelithiasis 07/19/2014 08/16/2016 documented as of this encounter (statuses as of 09/21/2022) [address] History of Past illness Narrative* Problem Noted Date Resolved Date Cholecystitis with cholelithiasis 07/19/2014 08/16/2016 documented as of this encounter (statuses as of 10/16/2022) [address] History of Past illness Narrative* Problem Noted Date Resolved Date Cholecystitis with cholelithiasis 07/19/2014 08/16/2016 documented as of this encounter (statuses as of 11/13/2022) [address] History of Past illness Narrative* Problem Noted Date Diagnosed Date Resolved Date Cholecystitis with cholelithiasis 07/19/2014 08/16/2016 documented as of this encounter (statuses as of 01/02/2023) [place] [id number] History of Past illness Narrative* Problem Noted Date Diagnosed Date Resolved Date Cholecystitis with cholelithiasis 07/19/2014 08/16/2016 documented as of this encounter (statuses as of 01/21/2023) [place] [id number] History of Past illness Narrative* Problem Noted Date Diagnosed Date Resolved Date Cholecystitis with cholelithiasis 07/19/2014 08/16/2016 documented as of this encounter (statuses as of 01/21/2023) [place] [address]2015 History of Past illness Narrative* Problem Noted Date Diagnosed Date Resolved Date Cholecystitis with cholelithiasis 07/19/2014 08/16/2016 documented as of this encounter (statuses as of 01/31/2023) [address] History of Past illness Narrative* Problem Noted Date Diagnosed Date Resolved Date Cholecystitis with cholelithiasis 07/19/2014 08/16/2016 documented as of this encounter (statuses as of 01/31/2023) [address] History of Past illness Narrative* Problem Noted Date Diagnosed Date Resolved Date Cholecystitis with cholelithiasis 07/19/2014 08/16/2016 documented as of this encounter (statuses as of 04/01/2023) [facility] note* Diagnosis Acute otitis media, right- Primary Unspecified otitis media Hearing loss due to cerumen impaction, bilateral Bilateral impacted cerumen Impacted cerumen documented in this encounter [facility] note* Diagnosis Mild persistent asthma without complication Unspecified asthma documented in this encounter [facility] note* Diagnosis Heartburn Epigastric pain Abdominal pain, epigastric Seasonal allergies Allergic rhinitis, cause unspecified documented in this encounter [facility] note* Diagnosis Ureterolithiasis- Primary Calculus of ureter documented in this encounter [facility]* Diagnosis Kidney stone- Primary Calculus of kidney Mod persistent asthma without complication Unspecified asthma Heartburn Epigastric pain Abdominal pain, epigastric Seasonal allergies Allergic rhinitis, cause unspecified Super obesity Morbid obesity documented [facility] this [facility]* Diagnosis Acute otitis externa of right ear, unspecified type- Primary Impacted cerumen of left ear Impacted cerumen documented in this encounter [facility] note* Diagnosis ETD (Eustachian tube dysfunction), bilateral- Primary Seasonal allergic rhinitis due to other allergic trigger documented in this encounter [facility]* Diagnosis Acute otitis media, right- Primary Unspecified otitis media Eustachian tube dysfunction, bilateral documented in this encounter [facility]* Diagnosis Ear problem, right- Primary documented in this encounter [facility] note* Diagnosis Acute otitis media, right- Primary Unspecified otitis media Sore throat Acute pharyngitis documented in this encounter [facility] note* Diagnosis Acute otitis media, left- Primary Unspecified otitis media URI, acute Acute upper respiratory infections of unspecified site documented in this encounter [facility] note* Diagnosis Otalgia, left- Primary documented in this encounter [facility]* Diagnosis Mod persistent asthma without complication Unspecified asthma documented in this encounter [facility] note* Diagnosis Bacterial sinusitis- Primary Unspecified sinusitis (chronic) Elevated blood pressure reading without diagnosis of hypertension documented in this encounter [facility] Summary Purpose Family History No Family History Records FoundNo Family History Records Found Advance Directives No Advanced Directives Records FoundNo Advanced Directives Records Found Reason for Referral Specialty Diagnoses / Procedures Referred By Edi sykes Referred To Contact Allergy Diagnoses Seasonal allergies Procedures CONSULT TO ALLERGY/IMMUNOLOGY OFFICE/OUTPATIENT [facility] 60-74 MINUTES Chantal Ayers PA-C [address] [place] [address] Referral ID Status Reason Start Date Expiration Date Visits Requested Visits Authorized [id number] Authorized PCP Requested Referral 02/08/2022 02/08/2023 1 1 Specialty Diagnoses / Procedures Referred By Edi sykes Referred To Contact Diagnoses Mild persistent asthma without complication Chantal Ayers PA-C [address] [place] [address] Referral ID Status Reason Start Date Expiration Date Visits Re quested Visits Authorized [id number] Closed 1 1 Health Concerns Infection Onset Date Last Indicated Resolved Time COVID-19 Rule-Out 01/20/2023 01/20/2023 Infection Onset Date Last Indicated Resolved Time COVID-19 Rule-Out 01/20/2023 01/20/2023 01/21/2023 10:42 AM EDT Additional Source Comments Source Comments (unrecognize d section and content) In the event this informatio n is protected by the Federal Confidentiality of Alcohol and Drug Abuse Patient Records regulations: The Federal rules restrict any use of the information to criminally investigate or prosecute any alcohol or drug abuse patient.[facility] the event this information is protected by the Federal Confidentiality of Alcohol and Drug Abuse Patient Records regulations: The Federal rules restrict any use of the information to criminally investigate or prosecute any alcohol or drug abuse patient.[facility] the event this information is protected by the Federal Confidentiality of Alcohol and Drug Abuse Patient Records regulations: The Federal rules restrict any use of the information to criminally investigate or prosecute any alcohol or drug abuse patient.[facility] event this information is protected by the Federal Confidentiality of Alcohol and Drug Abuse Patient Records regulations: The Federal rules restrict any use of the information to criminally investigate or prosecute any alcohol or drug abuse patient.[facility] CenterIn the event this information is protected by the Federal Confidentiality of Alcohol and Drug Abuse Patient Records regulations: The Federal rules restrict any use of the information to criminally investigate or prosecute any alcohol or drug abuse patient.[facility] CenterIn the event this information is protected by the Federal Confidentiality of Alcohol and Drug Abuse Patient Records regulations: The Federal rules restrict any use of the information to criminally investigate or prosecute any alcohol or drug abuse patient.[facility] CenterIn the event this information is protected by the Federal Confidentiality of Alcohol and Drug Abuse Patient Records regulations: The Federal rules restrict any use of the information to criminally investigate or prosecute any alcohol or drug abuse patient.[facility] CenterIn the event this information is protected by the Federal Confidentiality of Alcohol and Drug Abuse Patient Records regulations: The Federal rules restrict any use of the information to criminally investigate or prosecute any alcohol or drug abuse patient.[facility] CenterIn the event this information is protected by the Federal Confidentiality of Alcohol and Drug Abuse Patient Records regulations: The Federal rules restrict any use of the information to criminally investigate or prosecute any alcohol or drug abuse patient.[facility] CenterIn the event this information is protected by the Federal Confidentiality of Alcohol and Drug Abuse Patient Records regulations: The Federal rules restrict any use of the information to criminally investigate or prosecute any alcohol or drug abuse patient.[facility] CenterIn the event this information is protected by the Federal Confidentiality of Alcohol and Drug Abuse Patient Records regulations: The Federal rules restrict any use of the information to criminally investigate or prosecute any alcohol or drug abuse patient.[facility] CenterIn the event this information is protected by the Federal Confidentiality of Alcohol and Drug Abuse Patient Records regulations: The Federal rules restrict any use of the information to criminally investigate or prosecute any alcohol or drug abuse patient.[facility] CenterIn the event this information is protected by the Federal Confidentiality of Alcohol and Drug Abuse Patient Records regulations: The Federal rules restrict any use of the information to criminally investigate or prosecute any alcohol or drug abuse patient.[facility] CenterIn the event this information is protected by the Federal Confidentiality of Alcohol and Drug Abuse Patient Records regulations: The Federal rules restrict any use of the information to criminally investigate or prosecute any alcohol or drug abuse patient.[facility] CenterIn the event this information is protected by the Federal Confidentiality of Alcohol and Drug Abuse Patient Records regulations: The Federal rules restrict any use of the information to criminally investigate or prosecute any alcohol or drug abuse patient.[facility] Reason for Visit (unrecogniz ed section and content) Reason Onset Date Comments Refill Request 12/20/2021 Reason Onset Date Comments Refill Request 01/05/2022 Reason Comments Flank Pain Reason Comments Follow Up Reason Comments Ear Pain Right ear pain and e ars feel clogged x 2 days Reason Comments Ear Pain Pt reported (RT) ear pain, x3 days. Reason Comments Ear Pain Bilateral ear pain a nd congestion x 2 days Reason Comments Ear Pain right inside ear zen n and itching on outside x couple weeks Reason Comments Ear Pain Right ear x 2 days i nto throat Reason Comments Fever Head congestion, SOB x2 days Reason Comments Results Reason Comments Ear Pain Bilat ear pain, Left worse, sinus congestion, x 2 weeks Reason Onset Date Comments Refill Request 01/30/2023 Reason Comments Sinus Problem Sinus pain and press ure, ears pressure, cough with drainage, dizziness x3 days Care Teams (unrecognized sec tion and content) Drafter Geological Relationship Specialty Start Date End Date Chantal Ayers PA-C [address] [place] [address] PCP - General Family Practice 08/16/16 Drafter Geological Relationship Specialty Start Date End Date Chantal Ayers PA-C [address] [place] [address] PCP - General Family Practice 08/16/16 Drafter Geological Relationship Specialty Start Date End Date Xochitl Ayers PA [address] [place] [address] PCP - General Physician [place] 01/18/22 Drafter Geological Relationship Specialty Start Date End Date Chantal Ayers PA-C [address] [place] [address] PCP - General Family Medicine 08/16/16 Drafter Geological Relationship Specialty Start Date End Date Chantal Ayers PA-C [address] [place] [address] PCP - General Family Medicine 08/16/16 Drafter Geological Relationship Specialty Start Date End Date Cahntal Ayers PA-C [address] [place] [address] PCP - General Family Medicine 08/16/16 Drafter Geological Relationship Specialty Start Date End Date Chantal Ayers PA-C [address] [place] [address] PCP - General Family Medicine 08/16/16 Drafter Geological Relationship Specialty Start Date End Date Chantal Ayers PA-C [address] [place] [address] PCP - General Family Medicine 08/16/16 Drafter Geological Relationship Specialty Start Date End Date Chantal Ayers PA-C [address] [place] [address] PCP - General Family Medicine 08/16/16 Drafter Geological Relationship Specialty Start Date End Date Chantal Ayers PA-C [address] [place] [address] PCP - General Family Medicine 08/16/16 Drafter Geological Relationship Specialty Start Date End Date Chantal Ayers PA-C [address] [place] [address] PCP - General Family Medicine 08/16/16 Drafter Geological Relationship Specialty Start Date End Date Chantal Ayers PA-C [address] [place] [address] PCP - General Family Medicine 08/16/16 Drafter Geological Relationship Specialty Start Date End Date Chantal Ayers PA-C [address] [place] [address] PCP - General Family Medicine 08/16/16 Scheduled Active and Recently Administ ered Medications (unrecognized section and content) INFORMATION SOURCE (unrecogn ized section and content) DATE CREATED AUTHOR AUTHOR'S ORGANIZ ATION 05/24/[address] [facility] FOR RECORDS PERTAINING TO PATIENTS WHO ARE OR HAVE BEEN ENROLLED IN A CHEMICAL DEPENDENCY/SUBSTANCEABUSE PROGRAM, SOME INFORMATION MAY BE OMITTED. This clinical summary was aggregated from multiple sources. Caution should be exercised in using it in the provision of clinical care. This summary normalizes information from multiple sources, and as a consequence, information in this document may materially change the coding, format and clinical context of patient data. In addition, data may be omitted in some cases. CLINICAL DECISIONS SHOULD BE BASED ON THE PRIMARY CLINICAL RECORDS. [facility]. provides no warranty or guarantee of the accuracy or completeness of information in this document.
--- NOTE | 2023-06-01 13:33 | EX.ED.DYSGE1 ---
HPI History of Present Illness Chief Complaint: Hypertension Informant: patient Narrative Narrative: Patient is a 32-year-old female with history of anxiety and hypertension however has never been on any blood pressure medicine (states she was stubborn), presenting with elevated blood pressure. Patient notes that she has been feeling off in the past few days. States has been intermittently dizzy, her head will feel hot and she will get some mild chest pain in the center to the left of her chest. She states she sometimes gets blurry vision. She notes that she did recently have a cold and was ultimately diagnosed with an ear infection. She was treated with a course of antibiotics. She has since developed a chest cold. She took DayQuil and then more recently is been taking Coricidin HBP patient know she has a history of high blood pressure. States her blood pressure has been as high as the 160s recently and she went to urgent care today where her blood pressure was 170 systolic. She was sent here for further evaluation. She notes that about 8 years ago she was prescribed blood pressure medicine but never took it because she did not want to just be on blood pressure medicine the rest of her life. Does have a primary care doctor but does not usually see them. Is strictly the clinic. No other complaints or concerns at this time. No recent leg swelling. No GI or symptoms reported. Reports family history of hypothyroid and hypertension. Patient states she drinks a lot of pop and smokes cigarettes. She has not had any for the last 24 hours as she is intending to quit. PFSH PFSH Home Medications ibuprofen 600 mg tablet 600 mg PO Q8H PRN PRN Pain ##20 10/20/15 [Rx Last Taken Unknown] ketorolac 10 mg tablet 10 mg PO Q8H PRN Pain #15 tabs 04/09/18 [Rx Last Taken Unknown] amlodipine 5 mg tablet (Norvasc) 5 mg PO DAILY #30 tabs 06/01/23 [Rx Last Taken Unknown] Allergy/AdvReac Type Severity Reaction Status Date / Time acetaminophen [From Vicodin] AdvReac Nausea Verified 04/09/18 08:43 dicyclomine AdvReac Vomiting Verified 10/20/15 14:32 hydrocodone [From Vicodin] AdvReac Nausea Verified 04/09/18 08:43 Social History Smoking Status: Current every day smoker tobacco type: cigarettes ROS ROS ED Constitutional Constitutional ED: Reports sweats; Denies chills or fever(s) Eyes Eyes: Reports blurry vision; Denies change in vision ENT ENT ED: Denies ear pain, rhinorrhea or sore throat Cardiovascular Cardiovascular: Reports chest pain Respiratory/Chest Respiratory/Chest: Reports cough; Denies dyspnea Gastrointestinal Gastrointestinal: Denies abdominal pain, diarrhea, nausea or vomiting Genitourinary Genitourinary ED: Denies dysuria Musculoskeletal Musculoskeletal: Denies arthralgias or myalgias Integumentary Denies rash Neurologic Neurologic: Reports headache(s); Denies weakness Psychiatric Psychiatric: Denies anxiety EXAM Physical Exam Const Vital Signs: 06/01/23 12:48 06/01/23 14:32 06/01/23 15:00 Temperature 96.8 F L Temperature Source Temporal Pulse Rate 107 H 90 Respiratory Rate 22 H 16 Blood Pressure 163/112 H 175/100 H 147/98 H Blood Pressure Mean 129 125 114 Pulse Ox 95 95 Oxygen Delivery Method Room Air Room Air 06/01/23 15:48 Temperature Temperature Source Pulse Rate 94 Respiratory Rate 14 Blood Pressure 168/100 H Blood Pressure Mean 122 Pulse Ox 93 Oxygen Delivery Method Positive well nourished and well developed General Appearance ED: well developed and NAD; Negative for pallor HEENT Reports TM's clear and moist mucous membranes Tympanic Membrane ED: Yes TM's clear Eyes PERRL and EOMs intact bilaterally Neck no lymphadenopathy, supple and no JVD Chest Wall inspection of chest normal and palpation of chest normal Resp normal respiratory effort and clear to auscultation bilaterally Auscultation: Negative for rhonchi or wheezes Cardio regular rate, regular rhythm and no murmurs GI normal to inspection, nondistended, normoactive bowel sounds Extremity normal to inspection General Extremety ED: Negative for edema or tenderness General Extremity: Negative for edema Neuro oriented x3 Sensorium / Orientation: alert Psych mental status grossly normal Skin no rashes or lesions noted and no wounds Skin Narrative: Face is mildly flushed General Skin Exam: Negative for jaundice or pallor MDM MDM MDM Narrative Medical decision making narrative: Patient is evaluated for elevated blood pressure. She is been feeling lightheaded lately. She has been diagnosed with high blood pressure in the past whenever to the medicine floor. No she has had some weight gain and her blood pressures been worse. Has some vague chest discomfort. Cardiac workup, TSH and workup looking for signs of endorgan damage associated hypertension is obtained. Workup largely negative. She is a very mild leukocytosis 11.7 which is nonspecific. She has had some recent URI symptoms and chest x-ray viewed by myself as well as radiology does not show any acute process. At high since he troponin is 5. Given how long her symptoms going on I do not think this needs to be trended. She has a normal kidney function and her TSH is normal. EKG shows normal sinus rhythm with no acute ischemic changes. Patient is given a Tylenol for headache (stopped drinking pop and smoking yesterday) and also started on Norvasc. Given first dose in the emergency room we will send for 30-day supply. Counseled the importance of following up with her primary care doctor. Is given return precautions. Counseled the importance of managing blood pressure the long-term to prevent secondary endorgan damage such as heart failure, renal failure or stroke. Discharged home in stable condition. Lab Data Attestation: I reviewed the patient's lab results. Labs: Laboratory Results - last 24 hr 06/01/23 06/01/23 13:46 14:25 WBC 11.7 H RBC 5.13 Hgb 14.7 Hct 45.8 MCV 89.3 MCH 28.7 MCHC 32.1 RDW Std Deviation 42.3 RDW Coeff of Braden 12.9 Plt Count 297 MPV 9.8 Immature Gran % (Auto) 0.900 Neut % (Auto) 69.6 Lymph % (Auto) 23.8 [place] % (Auto) 3.8 Eos % (Auto) 1.4 Baso % (Auto) 0.5 Absolute Neuts (auto) 8.1 H Absolute Lymphs (auto) 2.79 Nucleated RBC % 0 Sodium 136 Potassium 4.0 Chloride 103 Carbon Dioxide 27.0 Anion Gap 6 BUN 9 Creatinine 0.60 Estim Creat Clear Calc 204.31 Est GFR (MDRD) Af Amer 149 Est GFR (MDRD) Non-Af 123 BUN/Creatinine Ratio 14.9 Glucose 128 H Calcium 9.8 Troponin I High Sens 5 TSH 0.87 Urine Test Negative Radiography Chest X-Ray - ED: 2 View, Read by ED Physician, Read by Radiologist and No Acute Disease Diagnostic Testing: Clinical Impression(s) from Imaging Studies Chest X-Ray 06/01/23 13:35 IMPRESSION: No radiographic evidence of acute cardiopulmonary disease. Electronically Signed: Russell Willett MD at 14:24 EST , Rhythm Strip Rhythm Strip: Sinus Rhythm Rate: 97 Ectopy: None EKG Initial EKG: Attestation: I personally reviewed and interpreted this EKG as follows: Interpretation: Sinus Rhythm Comments: Normal sinus rhythm at 97 bpm Normal axis Normal intervals Normal ST segments Discharge Plan Triage Chief Complaint: Hypertension ED Provider: Alice Velez Dx/Rx/DC Orders Clinical Impression: Hypertension Instructions: ED Hypertension New Begin Treatment Prescriptions: New amlodipine [Norvasc] 5 mg tablet 5 mg PO DAILY Qty: 30 0RF No Action ibuprofen 600 MG tablet 600 mg PO Q8H PRN PRN (Reason: Pain) Qty: 20 0RF ketorolac 10 MG tablet 10 mg PO Q8H PRN (Reason: Pain) Qty: 15 0RF Primary Care Provider: Chantal Ayers Referrals: Chantal Ayers PA [Primary Care Provider] - Activity Restrictions/Additional Instructions: You may alternate ibuprofen and Tylenol (try Tylenol first) for headache and dizziness. Take the medication as prescribed. Please follow-up as soon as possible with your primary care doctor. Disposition Disposition: Home, Self Care
--- NOTE | 2023-06-01 13:35 | RAD_ITS ---
EXAM: XR CHEST, 2 VIEWS CLINICAL INDICATION: chest pain TECHNIQUE: Frontal and lateral views of the chest. COMPARISON: No relevant prior studies available. FINDINGS: LUNGS AND PLEURAL SPACES: Unremarkable. No consolidation or edema. No pneumothorax. No effusion. HEART: Unremarkable. Cardiac silhouette not enlarged. MEDIASTINUM: Central airways and mediastinal contour are unremarkable. BONES/JOINTS: Unremarkable. No acute fracture. SOFT TISSUES: Unremarkable. RAD/Chest PA and Lateral IMPRESSION: No radiographic evidence of acute cardiopulmonary disease. Electronically Signed: Russell Willett MD at 14:24 EST ,
--- NOTE | 2023-06-01 13:36 | ED.RN ---
NO OLD EKG
[2023-06-01 13:56] LABS: Absolute Lymphocyte Count 2.79 X10^3/uL (0.83-4.51); Absolute Neutrophil Count 8.1 X10^3/uL (2.0-7.7); Basophil# 0.06 X10^3/uL; Basophil% 0.5 % (0-1); Eosinophil# 0.16 X10^3/uL; Eosinophils% 1.4 % (0-5); Hematocrit 45.8 % (37-47); Hemoglobin 14.7 g/dL (12.0-15.0); Lymphocyte # 2.79 X10^3/ul (0.83-4.51); Lymphocyte % 23.8 % (19-41); Mean Corp Hgb Conc 32.1 g/dL (32-36); Mean Corpuscular Hgb 28.7 pg (27.0-32.0); Mean Corpuscular Volume 89.3 fL (81-99); Mean Platelet Vol. 9.8 fl (6.2-12.0); Monocyte# 0.45 X10^3/uL; Monocyte% 3.8 % (0-10); NRBC Flagged by Analyzer 0 % (0-5); Neutrophil # 8.13 X10^3/uL (2.7-7.7); Neutrophil % 69.6 % (47-70); Platelet Count 297 K/mm3 (150-450); RBC Distribution Width CV 12.9 % (11.6-14.6); RBC Distribution Width SD 42.3 fl (35.1-43.9); Red Blood Count 5.13 M/mm3 (4.2-5.4); White Blood Count 11.7 K/mm3 (4.4-11.0)
[2023-06-01 14:20] LABS: Anion Gap 6 (5-15); BUN 9 mg/dL (7-18); BUN/Creat Ratio 14.9 RATIO (10-20); Calcium,Total 9.8 mg/dL (8.5-10.1); Chloride 103 mmol/L (98-107); EST Glomerular Filtration Rate 123 mL/min (>60); Est Glom Filt Rate - Afr Amer 149 mL/min (>60); Estimated Creatinine Clearance 204.31 ml/min; Glucose 128 mg/dL (74-106); Sodium Level 136 mmol/L (136-145); Thyroid Stim Hormone (TSH) 0.87 uIU/mL (0.358-3.74); Troponin-I HS 5 pg/mL (3.0-54.0)
[2023-06-01 14:32] VITALS: BP 175/100
[2023-06-01 14:41] LABS: Internal QC Validated? YES +Cl - CLEAR BKGD; Pregnancy, Urine Negative Negative; Record Kit Lot#,Urine Preg 718086
[2023-06-01 15:00] VITALS: BP 147/98; PULSE 90; RESP 16; O2SAT 95
[2023-06-01] MEDS: Acetaminophen 325 MG Tablet 650 MG PO (15:47)
[2023-06-01] MEDS: amLODIPine 5 MG Tablet PO (15:47)
[2023-06-01 15:48] VITALS: BP 168/100; PULSE 94; RESP 14; O2SAT 93
== END 2023-06-01 16:10 | disposition home or self-care (01) ==
PROVIDERS: Emergency Provider Emergency Medicine; PCP Physician Assistant; Visit Provider Emergency Medicine
DX: I10 Essential (primary) hypertension (principal); F17.210 Nicotine dependence, cigarettes, uncomplicated
CPT/HCPCS: 71046; 80048; 81025; 84443; 84484; 85025; 93005; 99284; A4216

== ENCOUNTER 2023-11-10 21:07 | Emergency (ER) | payer MEDICAID, SELFPAY ==
[2023-11-10 21:08] VITALS: BP 191/101; PULSE 82; RESP 16; TEMP 36.1; O2SAT 97; BMI 60.4
--- NOTE | 2023-11-10 22:27 | CT_ITS ---
INDICATION: flank pain EXAMINATION: CT ABDOMEN AND PELVIS WITHOUT CONTRAST - CT Abdomen And Pelvis W/O Contrast Injection TECHNIQUE: Helically acquired images were obtained of the abdomen and pelvis without oral or IV contrast. The protocol utilizes one or more of the following dose reduction techniques: automated exposure control, adjustment of mA and/or kV according to patient size,and/or use of iterative reconstruction technique. IV Contrast dosage and agent: None. Oral contrast: None. RADIATION DOSAGE (If Supplied By Facility): CTDIvol = ( 34.45 ) mGy, DLP = ( 1816.22 ) mGycm COMPARISON: No relevant prior comparison study available FINDINGS: LOWER CHEST: Lung bases are clear. No cardiomegaly or pericardial effusion. LIVER: Homogeneous. No focal mass. No intra- or extrahepatic biliary ductal dilation. PANCREAS: No focal cystic or solid mass. SPLEEN: Normal size without focal cystic or solid mass. ADRENAL GLANDS: No nodules. KIDNEYS AND URETERS: There is a nonobstructive stone in the proximal right ureter measures 3 mm with resultant mild right hydronephrosis . PERITONEUM: No ascites or free air. No other fluid collection. BOWEL: No evidence of acute appendicitis. No stomach or bowel distension. No focal inflammatory change. LYMPH NODES: No enlarged mesenteric or retroperitoneal lymph nodes. VESSELS: Aorta is non-dilated. URINARY BLADDER: Unremarkable. REPRODUCTIVE ORGANS: No pelvic masses. ABDOMINAL WALL: No discrete abdominal or pelvic wall hernia. BONES: No lytic or blastic abnormality. CT/Abdomen/Pelvis without Cont IMPRESSION: There is a nonobstructive stone in the proximal right ureter measures 3 mm with resultant mild right hydronephrosis . Electronically Signed: Sumeet Carver MD at 0:42 EDT ,
[2023-11-10 22:30] LABS: Bacteria 0 SEEN /hpf (None Seen); Mucous, Urine 0 SEEN /hpf (<or=2+); Squamous Epithelial Cells - UA 0 SEEN /hpf (5-10); White Blood Cells 0 SEEN /hpf (0-5)
[2023-11-10] MEDS: Ketorolac 30 MG/ML Syringe IV (22:41)
[2023-11-10] MEDS: Ondansetron 4 MG/2 ML Vial IV (22:42)
[2023-11-10] MEDS: 0.9% Normal Saline (1000mL) 1,000 ML 999 ML IV (22:43)
[2023-11-10 22:45] LABS: Absolute Lymphocyte Count 3.25 X10^3/uL (0.83-4.51); Absolute Neutrophil Count 9.6 X10^3/uL (2.0-7.7); Basophil# 0.07 X10^3/uL; Basophil% 0.5 % (0-1); Eosinophil# 0.19 X10^3/uL; Eosinophils% 1.4 % (0-5); Hematocrit 41.7 % (37-47); Hemoglobin 13.1 g/dL (12.0-15.0); Lymphocyte # 3.25 X10^3/ul (0.83-4.51); Lymphocyte % 23.2 % (19-41); Mean Corp Hgb Conc 31.4 g/dL (32-36); Mean Corpuscular Hgb 28.2 pg (27.0-32.0); Mean Corpuscular Volume 89.9 fL (81-99); Mean Platelet Vol. 9.8 fl (6.2-12.0); Monocyte# 0.77 X10^3/uL; Monocyte% 5.5 % (0-10); NRBC Flagged by Analyzer 0 % (0-5); Neutrophil # 9.63 X10^3/uL (2.7-7.7); Neutrophil % 68.8 % (47-70); Platelet Count 310 K/mm3 (150-450); RBC Distribution Width CV 13.5 % (11.6-14.6); RBC Distribution Width SD 44.4 fl (35.1-43.9); Red Blood Count 4.64 M/mm3 (4.2-5.4)
[2023-11-10 23:07] LABS: Anion Gap 6 (5-15); BUN 11 mg/dL (7-18); BUN/Creat Ratio 13.1 RATIO (10-20); Calcium,Total 9.5 mg/dL (8.5-10.1); Chloride 105 mmol/L (98-107); Creatinine, Serum 0.84 mg/dL (0.55-1.02); EST Glomerular Filtration Rate 84 mL/min (>60); Est Glom Filt Rate - Afr Amer 102 mL/min (>60); Estimated Creatinine Clearance 153.37 ml/min; Glucose 105 mg/dL (74-106); Potassium 4.1 mmol/L (3.5-5.1); Sodium Level 138 mmol/L (136-145)
[2023-11-10 23:09] LABS: Color, Urine Yellow (Yellow); Glucose, Dipstick Normal (Normal); Ketone-Dipstick Negative (Negative); Leukocyte Esterase-Dipstick 25 /ul (Negative); Nitrite-Dipstick Negative (Negative); Occult Blood-Urine 250 /ul (Negative); Protein-Dipstick 15 mg/dl (Negative); Urine Bilirubin Dipstick Negative (Negative); Urine Clarity Clear (Clear); Urine Urobilinogen Normal (Normal)
[2023-11-10 23:11] LABS: Internal QC Validated? YES +Cl - CLEAR BKGD; Pregnancy, Urine Negative Negative
[2023-11-10 23:22] LABS: Red Blood Cells-Urine 10-25 SEEN /hpf (0-5)
[2023-11-10 23:41] VITALS: BP 128/84; PULSE 83; RESP 18; TEMP 36.6; O2SAT 97
--- NOTE | 2023-11-11 01:05 | EDS_ITS ---
HPI History of Present Illness Chief Complaint: Flank Pain Informant: patient and family Narrative Narrative: Patient is a 33-year-old female with history of of hypertension and previous kidney stone. She states she was at dinner this evening when all of a sudden she developed a sharp right flank/back pain. She states there was no trauma or excessive activity and she reports that there was no improvement or worsening with any type of position change. She states that she had a kidney stone roughly 1 to 2 years ago and this felt very similar nature and secondary to this concern presents for evaluation [facility] Medical History (Updated 11/11/23 @ 02:[address] Juan Antonio Vazquez DO) Kidney stone Home Medications ?Medication ?Instructions ?Recorded ?Last Taken ?Type ibuprofen 600 mg tablet 600 mg PO Q8H PRN PRN Pain ##20 10/20/15 Unknown Rx ketorolac 10 mg tablet 10 mg PO Q8H PRN Pain #15 tabs 04/09/18 Unknown Rx amlodipine 5 mg tablet (Norvasc) 5 mg PO DAILY #30 tabs 06/01/23 Unknown Rx ketorolac 10 mg tablet 10 mg PO 4X/DAY PRN pain 5 days 11/11/23 Unknown Rx #20 tabs ondansetron 4 mg disintegrating 4 mg PO TID PRN nausea and 11/11/23 Unknown Rx tablet vomiting #21 tabs oxycodone-acetaminophen 5 mg-325 1 tab PO Q6H PRN pain 3 days #12 11/11/23 Unknown Rx mg tablet (Percocet) tabs tamsulosin 0.4 mg capsule (Flomax) 0.4 mg PO DAILY #14 caps 11/11/23 Unknown Rx Allergy/AdvReac Type Severity Reaction Status Date / Time acetaminophen (From Vicodin) AdvReac Nausea Verified 11/10/23 21:08 dicyclomine AdvReac Vomiting Verified 11/10/23 21:08 hydrocodone (From Vicodin) AdvReac Nausea Verified 11/10/23 21:08 Social History Smoking Status: Current every day smoker tobacco type: cigarettes ROS ROS ED Constitutional Constitutional ED: Denies chills or fever(s) ENT ENT ED: Denies sore throat Cardiovascular Cardiovascular: Denies chest pain Respiratory/Chest Respiratory/Chest: Denies cough or dyspnea Gastrointestinal Gastrointestinal: Denies abdominal pain, diarrhea, nausea or vomiting Genitourinary Genitourinary ED: Denies dysuria or hematuria Musculoskeletal Musculoskeletal: Reports back pain; Denies myalgias Integumentary Denies rash Neurologic Neurologic: Denies headache(s) Hematologic/Lymphatic Hematologic/Lymphatic: Denies easy bleeding or easy bruising EXAM Physical Exam Const Vital Signs: 11/10/23 21:08 11/10/23 23:41 11/11/23 01:21 Temperature 96.9 F L 97.8 F 98.4 F Temperature Source Temporal Oral Pulse Rate 82 83 72 Respiratory Rate 16 18 18 Blood Pressure 191/101 H 128/84 H 140/84 H Blood Pressure Mean 131 98 102 Pulse Ox 97 97 98 Oxygen Delivery Method Room Air Positive well nourished, well developed and obese General Appearance ED: well developed; Negative for pallor Nutritional Appearance: obese HEENT Reports dry mucous membranes HEENT Narrative: Mucous membranes are dry and tacky No tongue or lip swelling no oral lesions no secondary findings in the posterior pharynx to suggest infection Mouth ED: Yes dry mucous membranes Mouth: dry mucous membranes Eyes PERRL and EOMs intact bilaterally General Eye ED: Negative for pale conjunctiva or scleral icterus Neck supple Resp normal respiratory effort and clear to auscultation bilaterally Cardio regular rate and regular rhythm Rate: other Other Details: Heart is regular rate and rhythm without murmurs rubs or gallops Radial and carotid pulses are equal and symmetric GI normal to inspection, nondistended, normoactive bowel sounds, non-tender, non- distended and no masses GI Narrative: Abdomen is obese soft nontender and nondistended with normal active bowel sounds No voluntary guarding or rigidity or pulsatile mass Auscultation: normoactive bowel sounds Palpation: soft Back/Spine Back/Spine Narrative: Positive right CVA pain noted Extremity normal to inspection Neuro oriented x3, CN's II-XII intact bilaterally and no sensory deficits noted Sensorium / Orientation: alert Motor Exam: strength 5/5 throughout Psych mental status grossly normal Skin no rashes or lesions noted Skin Narrative: No overlying soft tissue changes to suggest trauma or infection General Skin Exam: Negative for jaundice or pallor MDM MDM MDM Narrative Medical decision making narrative: Patient arrived to the ER hypertensive otherwise with stable vitals. History and exam is concerning for UTI versus pyelonephritis versus kidney stone versus acute kidney injury. Basic laboratory studies were obtained which showed leukocytosis but otherwise no signs of UTI or acute kidney injury or severe electro abnormality. CT scan confirmed a stone in the right proximal ureter which correlates with her symptoms and location of pain. At this time the patient has had significant pain improvement with Toradol. Her workup does not show signs of MARINA or urosepsis so there is no need for admission or emergent urology consultation. She will be discharged home with symptomatic care and outpatient urology follow-up History & Record Review Discussion w/independent historian: Patient and Family Lab Data Attestation: I reviewed the patient's lab results. Labs: Laboratory Results - last 24 hr 11/10/23 11/10/23 22:20 22:35 WBC 14.0 H RBC 4.64 Hgb 13.1 Hct 41.7 MCV 89.9 MCH 28.2 MCHC 31.4 L RDW Std Deviation 44.4 H RDW Coeff of Braden 13.5 Plt Count 310 MPV 9.8 Immature Gran % (Auto) 0.600 Neut % (Auto) 68.8 Lymph % (Auto) 23.2 [place] % (Auto) 5.5 Eos % (Auto) 1.4 Baso % (Auto) 0.5 Absolute Neuts (auto) 9.6 H Absolute Lymphs (auto) 3.25 Nucleated RBC % 0 Sodium 138 Potassium 4.1 Chloride 105 Carbon Dioxide 27.0 Anion Gap 6 BUN 11 Creatinine 0.84 Estim Creat Clear Calc 153.37 Est GFR (MDRD) Af Amer 102 Est GFR (MDRD) Non-Af 84 BUN/Creatinine Ratio 13.1 Glucose 105 Calcium 9.5 Urine Color Yellow Urine Clarity Clear Urine pH 6.0 Ur Specific [place] 1.020 Urine Protein 15 H Urine Glucose (UA) Normal Urine Ketones Negative Urine Occult Blood 250 H Urine Nitrite Negative Urine Bilirubin Negative Urine Urobilinogen Normal Ur Leukocyte Esterase 25 H Urine RBC 10-25 SEEN Urine WBC 0 SEEN Ur Squamous Epith Cells 0 SEEN Urine Bacteria 0 SEEN Urine Mucus 0 SEEN Urine Test Negative Radiography Diagnostic Testing: Clinical Impression(s) from Imaging Studies Abdomen/Pelvis CT 11/10/23 22:27 IMPRESSION: There is a nonobstructive stone in the proximal right ureter measures 3 mm with resultant mild right hydronephrosis . Electronically Signed: Sumeet Carver MD at 0:42 EDT , Discharge Plan Triage Chief Complaint: Flank Pain ED Provider: Juan Antonio Vazquez Dx/Rx/DC Orders Clinical Impression: Kidney stone on right side, Renal colic, Hypertension Instructions: ED Kidney Stone with Pain Prescriptions: New ondansetron 4 mg tablet,disintegrating 4 mg PO TID PRN (Reason: nausea and vomiting) Qty: 21 0RF tamsulosin [Flomax] 0.4 mg capsule 0.4 mg PO DAILY Qty: 14 0RF ketorolac 10 mg tablet 10 mg PO 4X/DAY PRN (Reason: pain) 5 Days Qty: 20 0RF oxycodone-acetaminophen [Percocet] 5-325 mg tablet 1 tab PO Q6H PRN (Reason: pain) 3 Days Qty: 12 0RF No Action ibuprofen 600 MG tablet 600 mg PO Q8H PRN PRN (Reason: Pain) Qty: 20 0RF ketorolac 10 MG tablet 10 mg PO Q8H PRN (Reason: Pain) Qty: 15 0RF amlodipine [Norvasc] 5 mg tablet 5 mg PO DAILY Qty: 30 0RF Primary Care Provider: Chantal Ayers Referrals: Ham Rice MD [Med Staff - Active Staff] - Chantal Ayers PA [Primary Care Provider] - Activity Restrictions/Additional Instructions: Please return to the ER if you develop a fever of 100.4 or higher or your pain is not controlled with the prescribed medication. Otherwise keep yourself well- hydrated and stay active and follow-up with urology for repeat evaluation Print Language: Liberian Disposition Disposition: Home, Self Care Discharge Date/Time: 11/11/23 01:23
[2023-11-11 01:21] VITALS: BP 140/84; PULSE 72; RESP 18; TEMP 36.9; O2SAT 98
== END 2023-11-11 01:23 | disposition home or self-care (01) ==
PROVIDERS: Emergency Provider Emergency Medicine; PCP Physician Assistant; Visit Provider Emergency Medicine
DX: N20.2 Calculus of kidney with calculus of ureter (principal); I10 Essential (primary) hypertension; F17.210 Nicotine dependence, cigarettes, uncomplicated; E66.9 Obesity, unspecified
CPT/HCPCS: 74176; 80048; 81001; 81025; 85025; 96361; 96374; 96375; 99283; J7030; A4216; J2405

== ENCOUNTER 2024-08-19 12:25 | Emergency (ER) | payer MEDICAID, SELFPAY ==
[2024-08-19 12:26] VITALS: BP 155/93; PULSE 99; RESP 18; TEMP 36.8; O2SAT 95; BMI 56.6
[2024-08-19 12:29] VITALS: BP 155/93; PULSE 99; RESP 18; TEMP 36.8; O2SAT 95
--- NOTE | 2024-08-19 12:53 | CT_ITS ---
EXAM: CT Pelvis With Intravenous Contrast CLINICAL INDICATION: RIGHT LABIAL ABSCESS TECHNIQUE: Axial computed tomography images of the pelvis with intravenous contrast. This CT exam was performed using one or more of the following dose reduction techniques: automated exposure control, adjustment of the mA and/or kV according to patient size, and/or use of iterative reconstruction technique. COMPARISON: No relevant prior studies available. FINDINGS: BOWEL: Colonic diverticulosis without acute diverticulitis. No obstruction. APPENDIX: No findings to suggest acute appendicitis. INTRAPERITONEAL SPACE: Unremarkable. No free air. No significant fluid collection. BLADDER: Unremarkable. No mass. REPRODUCTIVE: Unremarkable as visualized. BONES/JOINTS: No acute fracture. No dislocation. SOFT TISSUES: Significant subcutaneous tissue stranding of the right labia concerning for at least phlegmon. Organized fluid collection or abscess is not clearly demonstrated. VASCULATURE: Unremarkable. No lower abdominal aortic aneurysm. LYMPH NODES: Unremarkable. No enlarged lymph nodes. CT/Pelvis WITH IV Contrast IMPRESSION: 1. Significant subcutaneous tissue stranding of the right labia concerning for at least phlegmon. Organized fluid collection or abscess is not clearly demonstrated. 2. Colonic diverticulosis without acute diverticulitis. Reading [facility]
[2024-08-19] MEDS: Ondansetron 4 MG/2 ML Vial IV (13:16)
[2024-08-19] MEDS: Morphine 2 MG/ML Syringe IV (13:16)
[2024-08-19] MEDS: 0.9% Normal Saline (1000mL) 1,000 ML 999 ML IV (13:17)
[2024-08-19 13:38] LABS: Bacteria 0 SEEN /hpf (None Seen); Mucous, Urine 0 SEEN /hpf (<or=2+); Squamous Epithelial Cells - UA 0 SEEN /hpf (5-10)
--- NOTE | 2024-08-19 13:40 | EDS_ITS ---
HPI History of Present Illness Chief Complaint: Abscess Narrative Narrative: Chief complaint and HPI: Right labia minora swelling. 33-year-old female with past medical history of controlled DM2 not on medication and HTN presents for evaluation of right labia minora swelling. Patient states several days ago she developed a pimple on her right labia minora. She states she popped this and then had increased swelling. Patient states that she went to an urgent care for evaluation and was prescribed antibiotics without improvement. She states she noticed the swelling again yesterday in which she popped it and noticed purulent brown drainage. She states since yesterday the drainage has resolved however the area has become more swollen and painful which is why she presents. She has never seen an BOTTLE W[employer]ING MACHINE OPERATOR. Is never had a pelvic exam. She states that she does not have vaginal intercourse but is sexually active otherwise. No concern for STI. She denies any vaginal discharge or bleeding. She denies any fever, chills, shortness of breath, chest pain, abdominal pain, nausea, vomiting, diarrhea, constipation, dysuria, hematuria. Review of systems: See HPI Medications: As listed on the chart Allergies: As listed on the chart PFSH: Per chart Vital signs: As listed on the chart. Reviewed. Physical exam: Gen: A&O x3, NAD Head: Normocephalic, atraumatic Eyes: No sclera icterus, conjunctiva clear ENT: Moist mucous membranes CV: RRR, no murmurs, no peripheral edema Resp: Lungs CTA BL, no w/r/c GI: Large body habitus, abd soft, non-distended, non-tender, no r/r/g : No CVA tenderness Pelvic: Right labia minora is swollen and indurated, there is a 0.5 cm wound that is scabbed over and not draining any purulence or material, area is erythematous and tender to palpation. No fluctuance or obvious abscess. No vaginal discharge or bleeding. No drainage or bleeding noted from the cervix. Cervix is non-friable. No cervical motion tenderness appreciated. No sign of PID on examination. Musc: Full ROM, no deformity Skin: Warm, dry Neuro: Alert, oriented, grossly intact, sensation intact Psych: Cooperative, appropriate mood and affect [facility] Medical History (Updated 08/19/24 @ 16:[address] Cem Tillman, DO) Kidney stone Home Medications ?Medication ?Instructions ?Recorded ?Last Taken ?Type ibuprofen 600 mg tablet 600 mg PO Q8H PRN PRN Pain # #20 10/20/15 Unknown Rx ketorolac 10 mg tablet 10 mg PO Q8H PRN Pain #15 ta bs 04/09/18 Unknown Rx amlodipine 5 mg tablet (Norvasc) 5 mg PO DAILY #30 tab s 06/01/23 Unknown Rx ketorolac 10 mg tablet 10 mg PO 4X/DAY PRN pain 5 d ays 11/11/23 Unknown Rx #20 tabs ondansetron 4 mg disintegrating 4 mg PO TID PRN nausea and 11/11/23 Unknown Rx tablet vomiting #21 tabs oxycodone-acetaminophen 5 mg-325 1 tab PO Q6H PRN pain 3 days #12 11/11/23 Unknown Rx mg tablet (Percocet) tabs tamsulosin 0.4 mg capsule (Flomax) 0.4 mg PO DAILY #14 caps 11/11/23 Unknown Rx sulfamethoxazole 800 1 tab PO BID 7 days #14 tabs 08/19/24 Unknown Rx mg-trimethoprim 160 mg tablet (Bactrim DS) Allergy/AdvReac Type Severity Reaction Status Date / Time acetaminophen (From Vicodin) AdvReac Nausea Verified 11/10/23 21:08 hydrocodone (From Vicodin) AdvReac Nausea Verified 11/10/23 21:08 Social History Smoking Status: Current every day smoker tobacco type: cigarettes EXAM Physical Exam Const Vital Signs: 08/19/24 12:26 08/19/24 12:29 Temperature 98.3 F 98.3 F Temperature Source Oral Oral Pulse Rate 99 99 Respiratory Rate 18 18 Blood Pressure 155/93 H 155/93 H Blood Pressure Mean 113 113 Pulse Ox 95 95 Oxygen Delivery Method Room Air Room Air MDM MDM MDM Narrative Medical decision making narrative: 33-year-old female with past medical history of controlled DM2 not on medication and HTN presents for evaluation of right labia minora swelling. Patient had a pimple in this area several days ago in which she popped it. Since then she has developed swelling, erythema, tenderness in the area. See physical exam findings. Differential diagnosis includes but is not limited to cellulitis, abscess. Morphine, Zofran, NS bolus ordered. Laboratory workup ordered including imaging given there is no fluctuance or obvious abscess on exam. Mostly indurated. CBC with leukocytosis of 14.2. No anemia. BMP relatively unremarkable except for mild hyperglycemia at 124. Serum negative. UA negative for UTI. CT pelvis shows significant subcutaneous tissue stranding of the right labia concerning for phlegmon. There is no organized fluid collection or abscess. Colonic diverticulosis without acute diverticulitis. On further discussing with the patient she states that she was prescribed amoxicillin for an ear infection and doxycycline for the vaginal area. She has taken about 48 to 72 hours of this antibiotic. They did perform a culture at the urgent care. She was able to bring up these results. Showed normal skin malathi. Given findings of the CT pelvis, B[employer]LE W[employer]ING MACHINE OPERATOR was consulted and patient was discussed with Dr. Juarez. Recommendation is to give 1 dose of Rocephin here in the emergency department and discharged home on Bactrim. Follow-up in the [facility] clinic. Patient was educated on the new recommendations. Told to stop taking doxycycline. Ibuprofen and Tylenol as needed for pain. Return precautions explained. She affirmed understanding. Patient stable to discharge home. Impression: 1. Right labial cellulitis/phlegmon Lab Data Labs: Laboratory Results - last 24 hr 08/19/24 08/19/24 13:18 13:26 WBC 14.2 H RBC 4.55 Hgb 13.0 Hct 40.2 MCV 88.4 MCH 28.6 MCHC 32.3 RDW Std Deviation 43.7 RDW Coeff of [place]aden 13.6 Plt Count 316 MPV 9.6 Immature Gran % (Auto) 1.000 H Neut % (Auto) 72.2 H Lymph % (Auto) 19.8 [place] % (Auto) 5.1 Eos % (Auto) 1.4 Baso % (Auto) 0.5 Absolute Neuts (auto) 10.3 H Absolute Lymphs (auto) 2.82 Nucleated RBC % 0 Sodium 138 Potassium 4.0 Chloride 102 Carbon Dioxide 23.7 Anion Gap 12 BUN 10 Creatinine 0.61 L Estim Creat Clear Calc 209.40 Est GFR (MDRD) Non-Af 122 BUN/Creatinine Ratio 16.3 Glucose 124 H Calcium 9.5 Serum , Qual NEGATIVE Urine Color Straw Urine Clarity Clear Urine pH 7.0 Ur Specific [place] 1.010 Urine Protein Negative Urine Glucose (UA) Normal Urine Ketones Negative Urine Occult Blood Negative Urine Nitrite Negative Urine Bilirubin Negative Urine Urobilinogen Normal Ur Leukocyte Esterase 25 H Urine RBC 0-5 SEEN Urine WBC 0-5 SEEN Ur Squamous Epith Cells 0 SEEN Urine Bacteria 0 SEEN Urine Mucus 0 SEEN Radiography Diagnostic Testing: Clinical Impression(s) from Imaging Studies Pelvis CT 08/19/24 12:53 IMPRESSION: 1. Significant subcutaneous tissue stranding of the right labia concerning for at least phlegmon. Organized fluid collection or abscess is not clearly demonstrated. 2. Colonic diverticulosis without acute diverticulitis. Reading Location[facility] Discharge Plan Triage Chief Complaint: Abscess ED Provider: Cem Tillman Dx/Rx/DC Orders Clinical Impression: Cellulitis of labia Instructions: ED Cellulitis Prescriptions: New sulfamethoxazole-trimethoprim [Bactrim DS] 800-160 mg tablet 1 tab PO BID 7 Days Qty: 14 0RF No Action ibuprofen 600 MG tablet 600 mg PO Q8H PRN PRN (Reason: Pain) Qty: 20 0RF ketorolac 10 MG tablet 10 mg PO Q8H PRN (Reason: Pain) Qty: 15 0RF amlodipine [Norvasc] 5 mg tablet 5 mg PO DAILY Qty: 30 0RF ondansetron 4 mg tablet,disintegrating 4 mg PO TID PRN (Reason: nausea and vomiting) Qty: 21 0RF tamsulosin [Flomax] 0.4 mg capsule 0.4 mg PO DAILY Qty: 14 0RF ketorolac 10 mg tablet 10 mg PO 4X/DAY PRN (Reason: pain) 5 Days Qty: 20 0RF oxycodone-acetaminophen [Percocet] 5-325 mg tablet 1 tab PO Q6H PRN (Reason: pain) 3 Days Qty: 12 0RF Primary Care Provider: Umm Santamaria Referrals: Umm Santamaria CNS [Primary Care Provider] - 3-5 Days Norbert Juarez MD [Med Staff - Active Staff] - 3-5 Days Activity Restrictions/Additional Instructions: Return back to the ED if symptoms change or worsen. Stop taking your doxycycline and instead start taking Bactrim tomorrow. You received a new Rocephin here in the emergency department. Follow-up with B[employer]LE W[employer]ING MACHINE OPERATOR, Dr. Juarez. Call to make an appointment as soon as possible. If you develop pimple do not pop it. Tylenol and ibuprofen as needed for pain. You received Toradol here in the emergency department. No ibuprofen for 8 hours. Print Language: Urdu Disposition Disposition: Home, Self Care
[2024-08-19 13:46] LABS: Absolute Lymphocyte Count 2.82 X10^3/uL (0.83-4.51); Absolute Neutrophil Count 10.3 X10^3/uL (2.0-7.7); Basophil# 0.07 X10^3/uL; Basophil% 0.5 % (0-1); Eosinophils% 1.4 % (0-5); Hematocrit 40.2 % (37-47); Lymphocyte # 2.82 X10^3/ul (0.83-4.51); Lymphocyte % 19.8 % (19-41); Mean Corp Hgb Conc 32.3 g/dL (32-36); Mean Corpuscular Hgb 28.6 pg (27.0-32.0); Mean Corpuscular Volume 88.4 fL (81-99); Mean Platelet Vol. 9.6 fl (6.2-12.0); Monocyte# 0.72 X10^3/uL; Monocyte% 5.1 % (0-10); NRBC Flagged by Analyzer 0 % (0-5); Neutrophil # 10.27 X10^3/uL (2.7-7.7); Neutrophil % 72.2 % (47-70); Platelet Count 316 K/mm3 (150-450); RBC Distribution Width CV 13.6 % (11.6-14.6); RBC Distribution Width SD 43.7 fl (35.1-43.9); Red Blood Count 4.55 M/mm3 (4.2-5.4); White Blood Count 14.2 K/mm3 (4.4-11.0)
[2024-08-19 13:54] LABS: Internal QC Validated? YES +Cl - CLEAR BKGD; Pregnancy, Serum, hCG Quali. NEGATIVE Negative; Record Kit Lot#, Serum Preg. 929381
[2024-08-19 13:59] LABS: Color, Urine Straw (Yellow); Glucose, Dipstick Normal (Normal); Ketone-Dipstick Negative (Negative); Leukocyte Esterase-Dipstick 25 /ul (Negative); Nitrite-Dipstick Negative (Negative); Occult Blood-Urine Negative /ul (Negative); Protein-Dipstick Negative (Negative); Urine Bilirubin Dipstick Negative (Negative); Urine Clarity Clear (Clear); Urine Urobilinogen Normal (Normal)
[2024-08-19 14:17] LABS: Red Blood Cells-Urine 0-5 SEEN /hpf (0-5); White Blood Cells 0-5 SEEN /hpf (0-5)
[2024-08-19 14:36] LABS: Anion Gap 12 (5-15); BUN 10 mg/dL (4-19); BUN/Creat Ratio 16.3 RATIO (10-20); Calcium,Total 9.5 mg/dL (7.6-11.0); Carbon Dioxide 23.7 mmol/L (21.0-32.0); Chloride 102 mmol/L (98-108); Creatinine, Serum 0.61 mg/dL (0.70-1.20); EST Glomerular Filtration Rate 122 (>60); Glucose 124 mg/dL (70-99); Sodium Level 138 mmol/L (133-145)
[2024-08-19 16:25] VITALS: BP 155/90; PULSE 98; RESP 18; O2SAT 97
[2024-08-19] MEDS: Ketorolac 30 MG/ML Syringe IV (16:58)
[2024-08-19] MEDS: Ceftriaxone 1 GM/50 ML BAG IV (16:58)
[2024-08-19 17:53] VITALS: BP 140/91; PULSE 87; RESP 18; O2SAT 98
--- NOTE | 2024-08-26 07:09 | EDS_ITS ---
HPI History of Present Illness Chief Complaint: Abscess Narrative Narrative: Chief complaint and HPI: Right labia minora swelling. 33-year-old female with past medical history of controlled DM2 not on medication and HTN presents for evaluation of right labia minora swelling. Patient states several days ago she developed a pimple on her right labia minora. She states she popped this and then had increased swelling. Patient states that she went to an urgent care for evaluation and was prescribed antibiotics without improvement. She states she noticed the swelling again yesterday in which she popped it and noticed purulent brown drainage. She states since yesterday the drainage has resolved however the area has become more swollen and painful which is why she presents. She has never seen an REHABILITATION PROGRAM MANAGER. Is never had a pelvic exam. She states that she does not have vaginal intercourse but is sexually active otherwise. No concern for STI. She denies any vaginal discharge or bleeding. She denies any fever, chills, shortness of breath, chest pain, abdominal pain, nausea, vomiting, diarrhea, constipation, dysuria, hematuria. Review of systems: See HPI Medications: As listed on the chart Allergies: As listed on the chart PFSH: Per chart Vital signs: As listed on the chart. Reviewed. Physical exam: Gen: A&O x3, NAD Head: Normocephalic, atraumatic Eyes: No sclera icterus, conjunctiva clear ENT: Moist mucous membranes CV: RRR, no murmurs, no peripheral edema Resp: Lungs CTA BL, no w/r/c GI: Large body habitus, abd soft, non-distended, non-tender, no r/r/g : No CVA tenderness Pelvic: Right labia minora is swollen and indurated, there is a 0.5 cm wound that is scabbed over and not draining any purulence or material, area is erythematous and tender to palpation. No fluctuance or obvious abscess. No vaginal discharge or bleeding. No drainage or bleeding noted from the cervix. Cervix is non-friable. No cervical motion tenderness appreciated. No sign of PID on examination. Musc: Full ROM, no deformity Skin: Warm, dry Neuro: Alert, oriented, grossly intact, sensation intact Psych: Cooperative, appropriate mood and affect [facility] Medical History (Updated 08/19/24 @ 16:[address] Cem Tillman, ) Kidney stone Home Medications ?Medication ?Instructions ?Recorded ?Last Taken ?Type amlodipine 5 mg tablet (Norvasc) 5 mg PO DAILY #30 tab s 06/01/23 Unknown Rx escitalopram oxalate 10 mg tablet 10 mg PO DAILY 08/19 Unknown History sulfamethoxazole 800 1 tab PO BID 7 days #14 tabs 08/19/24 Unknown Rx mg-trimethoprim 160 mg tablet (Bactrim DS) cefdinir 300 mg capsule 300 mg PO BID 10 days #20 ca ps 08/26/24 Unknown Rx Allergy/AdvReac Type Severity Reaction Status Date / Time acetaminophen (From Vicodin) AdvReac Nausea Verified 11/10/23 21:08 hydrocodone (From Vicodin) AdvReac Nausea Verified 11/10/23 21:08 Social History Smoking Status: Current every day smoker tobacco type: cigarettes MDM MDM MDM Narrative Medical decision making narrative: 33-year-old female with past medical history of controlled DM2 not on medication and HTN presents for evaluation of right labia minora swelling. Patient had a pimple in this area several days ago in which she popped it. Since then she has developed swelling, erythema, tenderness in the area. See physical exam findings. Differential diagnosis includes but is not limited to cellulitis, abscess. Morphine, Zofran, NS bolus ordered. Laboratory workup ordered including imaging given there is no fluctuance or obvious abscess on exam. Mostly indurated. CBC with leukocytosis of 14.2. No anemia. BMP relatively unremarkable except for mild hyperglycemia at 124. Serum negative. UA negative for UTI. CT pelvis shows significant subcutaneous tissue stranding of the right labia concerning for phlegmon. There is no organized fluid collection or abscess. Colonic diverticulosis without acute diverticulitis. On further discussing with the patient she states that she was prescribed amoxicillin for an ear infection and doxycycline for the vaginal area. She has taken about 48 to 72 hours of this antibiotic. They did perform a culture at the urgent care. She was able to bring up these results. Showed normal skin malathi. Given findings of the CT pelvis, REHABILITATION PROGRAM MANAGER was consulted and patient was discussed with Dr. Juarez. Recommendation is to give 1 dose of Rocephin here in the emergency department and discharged home on Bactrim. Follow-up in the REHABILITATION PROGRAM MANAGER clinic. Patient was educated on the new recommendations. Told to stop taking doxycycline. Ibuprofen and Tylenol as needed for pain. Return precautions explained. She affirmed understanding. Patient stable to discharge home. Impression: 1. Right labial cellulitis/phlegmon Addendum? Patient's wound culture grew E. coli as well as strep anginosus. The strep is not sensitive to Bactrim so we will switch to Omnicef to cover both pathogens. [facility] Radiography Diagnostic Testing: Clinical Impression(s) from Imaging Studies Pelvis CT 08/19/24 12:53 IMPRESSION: 1. Significant subcutaneous tissue stranding of the right labia concerning for at least phlegmon. Organized fluid collection or abscess is not clearly demonstrated. 2. Colonic diverticulosis without acute diverticulitis. Reading Location: [facility] Discharge Plan Triage Chief Complaint: Abscess ED Provider: Cem Tillman Dx/Rx/DC Orders Clinical Impression: Cellulitis of labia Instructions: ED Cellulitis Prescriptions: New sulfamethoxazole-trimethoprim [Bactrim DS] 800-160 mg tablet 1 tab PO BID 7 Days Qty: 14 0RF cefdinir 300 mg capsule 300 mg PO BID 10 Days Qty: 20 0RF No Action amlodipine [Norvasc] 5 mg tablet 5 mg PO DAILY Qty: 30 0RF escitalopram oxalate 10 mg tablet 10 mg PO DAILY Primary Care Provider: Umm Santamaria Referrals: Umm Santamaria CNS [Primary Care Provider] - 3-5 Days Norbert Juarez MD [Med Staff - Active Staff] - 3-5 Days Activity Restrictions/Additional Instructions: Return back to the ED if symptoms change or worsen. Stop taking your doxycycline and instead start taking Bactrim tomorrow. You received a new Rocephin here in the emergency department. Follow-up with REHABILITATION PROGRAM MANAGER, Dr. Juarez. Call to make an appointment as soon as possible. If you develop pimple do not pop it. Tylenol and ibuprofen as needed for pain. You received Toradol here in the emergency department. No ibuprofen for 8 hours. Print Language: Swedish Disposition Disposition: Home, Self Care Discharge Date/Time: 08/19/24 17:54
== END 2024-08-19 17:54 | disposition home or self-care (01) ==
PROVIDERS: Emergency Provider Surgery; PCP Clinical Nurse Specialist Adult Health; Visit Provider Surgery
DX: N76.2 Acute vulvitis (principal); F17.210 Nicotine dependence, cigarettes, uncomplicated
CPT/HCPCS: 72193; 80048; 81001; 84703; 85025; 87070; 87077; 87186; 87205; 96361; 96365; 96375; 99284; Q9967; A4216; J2405